=== PATIENT | male | born 1970 | race Caucasian/White ===

== ENCOUNTER → 2017-05-29 | Outpatient (CLI) | payer OTHER, BC ==
[2016-12-17 11:20] VITALS: BMI 27.2
[~2017-05-29] MED LIST: ACE3 PO; ACET-2043 PO; ALBU8.5H IH; ALBU8.5H12 IH; ALEN70TA2 PO; ALIVE MENS ENERGY; ASC500 PO; ASCO-191 PO; ASCO100T15 PO; ASPI81TA94 PO; CANA300T PO; CETI-176 PO; CETI10CA8 PO; CLIN300C99 PO; CLO1 PO; CLON-303 PO; CLON-389 PO; COL625PT PO; CYC10 PO; CYCL10TA29 PO; DIA10 PO; DIA5 PO; DIAZ-308 PO; DIPH-740 PO; DOCU-202 PO; EPIN0.3P15 IM; EPIN0.3P3 IM; EPIN0.3P3 SC; EZET10TA41 PO; FAMO-67 PO; FAMO20TA28 PO; FISH1CAP15 PO; FLUO-177 PO; FLUO-202 PO; GAB300 PO; GABA-549 PO; GEMF600T91 PO; GLY5 PO; HYDR-2946 PO; HYDR-2966 PO; HYDR-4309 PO; HYDROCHLORIDE PO; IBU200 PO; IBUP-1671 PO; ICAT30DI SQ; ICOS1CAP PO; INSU100I28 SQ; INSU100I5 SC; INSU100I8 SUBQ; KET10 PO; LAN30PT PO; LANS30CA70 PO; LEVI SUBQ; LID5T TP; LIDO20SO21 ASDIRECTED; LIS5 PO; LISI-362 PO; LOR5/325 PO; LORA-629 PO; LORA-788 PO; LORA-809 PO; METF-410 PO; MONT10TA PO; MORP-1 PO; MULT-1287 PO; NIAC500C12; NIAC500C12 PO; NIAC500T85 PO; NOVOLOG SUBQ; OMEG-24 PO; OMEG500C5 PO; OMEP-153 PO; ONDA4TAB PO; ONDA4TAB9 PO; ONDA4TAB97 PO; OXYC-375 PO; OXYC-854 PO; OXYC-856 PO; OXYC-865 PO; OXYC-870 PO; PANT20TA27 PO; PANT40TA65 PO; PER PO; PRE20 PO; PRED-1 PO; PRED20TA6 PO; PRED50TA22 PO; PULSE OXIMETER; Prednisone PO; RANI-325 PO; SIMV-42 PO; SIMV10TA98 PO; SUCR1TAB85 PO; WARF-1 PO; WARF-18 PO; WARF2.5T11 PO; [UNRECOGNIZED DRUG - OTHER]; [UNRECOGNIZED DRUG - OTHER]
--- NOTE | 2017-05-29 15:23 | RADIOLOGY IMAGING REPORT ---
FACILITY: [facility] - [place] PATIENT NAME: Payton La : 1970 MR: [id number] V: [id number] EXAM DATE: ORDERING PHYSICIAN: HITESH LYON TECHNOLOGIST: Location: [facility] [place] Patient: Payton La : 1970 Visit/Account:[id number] Date of Sevice: 05/29/2017 EXAMINATION: MRI Cervical spine without intravenous contrast HISTORY: Neck pain. Arm numbness. COMPARISON: 06/22/2015. TECHNIQUE: Multi-planar, multi-sequence cervical spine MRI was performed without intravenous contras t administration. FINDINGS: Alignment: Normal. Vertebral marrow signal: Negative. Cranio-cervical junction: Negative. Visualized posterior fossa: Negative. Soft tissues: Negative. Cervical cord: Negative. Disc Spaces: C1-2: Negative. C2-3: Negative. C3-4: Mild disc height loss with circumferential disc osteophyte. Complex. No significant spinal ca nal stenosis. Mild bilateral neural foraminal stenosis. Slightly worsened compared with 06/22/2015. C4-5: Anterior fusion. Left uncovertebral hypertrophy with mild left neural foraminal stenosis. No spinal canal or right neural foraminal stenosis. Anterior fusion is new and stenosis is decreased co mpared with 06/22/2015. C5-6: Anterior fusion. Bilateral uncovertebral hypertrophy with mild bilateral neural foraminal sten osis. No spinal canal stenosis. Anterior fusion is new and stenosis is decreased compared with . C6-7: Anterior fusion. Left greater than right uncovertebral hypertrophy with mild to moderate left neural foraminal stenosis. No spinal canal or right neural foraminal stenosis. The anterior C7 scre ws have been removed. Otherwise no significant change compared with 06/22/2015. C7-T1: Negative. Upper thoracic spine: Negative. IMPRESSION: 1. Anterior fusion of C4-C5, C5-C6, and C6-C7. 2. 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 3. Degenerative changes are slightly worsened at C3-C4 compared with 06/22/2015. 4. Anterior fusion is new and stenosis is decreased at C4-C5 and C5-C6 compared with 06/22/2015. Report Dictated By: Aroldo Stubbs MD at 05/29/2017 2:50 PM Report E-Signed By: Aroldo Stubbs MD at 05/29/2017 3:18 PM WSN:[id number]
== END ==
LOC: MRI 01:33
PROVIDERS: ATTEND Orthopaedic Surgery Orthopaedic Surgery of the Spine
DX: M50.31 Other cervical disc degeneration, high cervical region (principal); Z98.1 Arthrodesis status; M47.892 Other spondylosis, cervical region
CPT/HCPCS: 72141

== ENCOUNTER → 2017-07-21 | Outpatient (CLI) | payer BC, OTHER ==
[2016-12-17 11:20] VITALS: BMI 27.2
[~2017-07-21] MED LIST changes: -WARF-18 PO; +WARF5TAB23 PO
[2017-07-21 11:46] LABS: INR 1.12
== END ==
LOC: LAB 11:04
PROVIDERS: ATTEND Physician Assistant Surgical
DX: Z96.651 Presence of right artificial knee joint (principal)
CPT/HCPCS: 36415; 85610

== ENCOUNTER 2017-07-23 10:31 | Emergency (ER) | payer BC, OTHER ==
[2016-12-17 11:20] VITALS: Wt 80.5 kg
[2017-07-23] MEDS ORDERED: diphenhydrAMINE 50 MG/ML VIAL IVP ONE (10:40)
[2017-07-23] MEDS ORDERED: methylPREDNIS SUCC 125 MG/2ML IVP ONE (10:40)
[2017-07-23] MEDS ORDERED: FAMOTIDINE(*) 20MG/50ML PREMIX 50 ML IVPB ONE (10:40)
[2017-07-23] MEDS ORDERED: EPINEPHrine 0.3 MG SYR IM ONLY ONE (10:40)
--- NOTE | 2017-07-23 10:54 | ER Report ---
History and Physical Time Seen By MD: 10:52 Hx. of Stated Complaint: pt reports hives in hands and arms, around hips, worsening since last night HPI/ROS CHIEF COMPLAINT: Hives HISTORY OF PRESENT ILLNESS: Patient is a 46-year-old male with multiple known allergies and history of anaphylaxis presents to emergency department with complaint of some itching to his palms and sides. Patient recently had knee surgery on July 14 and was started on Coumadin by his orthopedist postoperatively. Patient notes that since beginning the Coumadin he's been having increasing any more itching. He denies any difficulty breathing, wheezing or throat tightening at this time. Denies fevers or chills. Denies any complication from the surgery itself. REVIEW OF SYSTEMS: Constitutional: No fever, no chills. Eyes: No discharge. ENT: No sore throat. Cardiovascular: No chest pain, no palpitations. Respiratory: No cough, no shortness of breath. Gastrointestinal: No abdominal pain, no vomiting. Genitourinary: No hematuria. Musculoskeletal: No back pain. Skin: Hives Neurological: No headache. Allergies: Coded Allergies: Iodinated Contrast- Oral and IV Dye (Verified Allergy, Severe, hives, sob , anaphalaxysis , 01/11/17) Penicillins (Verified Allergy, Severe, RASH, 01/11/17) cyclobenzaprine (Verified Allergy, Severe, HIVES, 01/11/17) metaxalone (Verified Allergy, Severe, HIVES,RASH, TROUBLE BREATHING, ) morphine (Verified Allergy, Severe, hives, rash, trouble breathing, ) tramadol (Verified Allergy, Intermediate, HIVES, 01/11/17) NSAIDS (Non-Steroidal Anti-Inflamma (Verified Allergy, Unknown, UNKNOWN, ) hx of anaphylaxis of unknown etiology. Has taken Ibuprofen without reaction. propoxyphene (Verified Adverse Reaction, Severe, NAUSEA/VOMITING., 01/11/17 ) hydromorphone (Verified Adverse Reaction, Mild, NAUSEA/VOMITING, 01/11/17) ketorolac tromethamine (Verified Adverse Reaction, Mild, NAUSEA/VOMITING, 01/11/17) meperidine (Verified Adverse Reaction, Mild, NAUSEA/VOMITING, 01/11/17) Uncoded Allergies: CONTRAST DYE (Allergy, Severe, ANAPHYLAXIS, 11/01/13) Home Meds Active Scripts Ondansetron (ONDANSETRON ODT) 4 Mg Tab.rapdis, 4 MG PO Q6H Y for NAUSEA, #20 TAB 2 Refills Prov:LASHAUN ERNST MD 12/20/16 Albuterol Sulfate 90 Mcg/Act (PROAIR HFA 90 MCG/ACT) 8.5 Gm Hfa.aer.ad, 2 PUFF IH Q6H, #2 INHALER 3 Refills Prov:BEBETO CASTILLO MD 10/07/16 Icatibant Acetate (FIRAZYR) 30 Mg/3 Ml Disp.syrin, 30 MG SQ Q6H Y for swelling, #0 Prov:FAROOQ GREENBERG MD 06/09/16 Acetaminophen (ACETAMINOPHEN) 500 Mg Tablet, 1000 MG PO Q8H Y for PAIN, #0 Prov:FAROOQ GREENBERG MD 06/09/16 Reported Medications Multivitamin (MEN'S MULTI-VITAMIN) 1 Each Tablet, 1 EACH PO DAILY 12/17/16 Ezetimibe (ZETIA) 10 Mg Tablet, 10 MG PO QHS, TAB 12/17/16 Colesevelam Hcl (WELCHOL) 625 Mg Tablet, 625 MG PO BID 10/07/16 Pantoprazole Sodium (PANTOPRAZOLE SODIUM) 40 Mg Tablet.dr, 40 MG PO BID, TAB.SR 06/08/16 Fluoxetine Hcl (PROZAC) 20 Mg Capsule, 20 MG PO QHS, CAPSULE 06/08/16 Ascorbic Acid (VITAMIN C) 1,000 Mg Tablet, 1000 MG PO BID 06/06/16 Cetirizine Hcl (ZYRTEC) 10 Mg Tablet, 10 MG PO BID, TAB 06/06/16 Insulin Degludec (Tresiba Flextouch U-100) Unknown Strength Insuln.pen, 12 UNITS SUBQ QHS 05/23/16 Gemfibrozil (GEMFIBROZIL) 600 Mg Tablet, 600 MG PO BID 05/23/16 Hydrochlorothiazide (HYDROCHLOROTHIAZIDE) 25 Mg Tablet, 1 TAB PO QDAY, TAB 05/23/16 Discontinued Reported Medications Sucralfate (CARAFATE) 1 Gm Tablet, 1 GM PO ACHS 12/17/16 Icosapent Ethyl (VASCEPA) 1 Gm Capsule, 2 GM PO BID, CAPSULE 06/06/16 Canagliflozin (INVOKANA) 300 Mg Tablet, 300 MG PO BEFORE BREAKAST 02/11/15 Past Medical/Surgical History History of anaphylactic reactions Hx Smoking: No Smoking Status: Never Smoker Exposure to Second Hand Smoke?: No Hx Substance Use Disorder: No Hx Alcohol Use: Yes Constitutional Vital Sign - Last 24 Hours 07/23/17 07/23/17 07/23/17 07/23/17 10:31 10:34 10:35 10:38 Temp 97.5 Pulse ??? 119 Resp 20 B/P (MAP) 145/115 (125) 145/115 143/117 (126) Pulse Ox 92 O2 Delivery Room Air 07/23/17 07/23/17 07/23/17 07/23/17 10:46 10:55 11:00 11:01 Pulse 118 97 B/P (MAP) 109/78 (88) 115/82 (93) Pulse Ox 94 90 07/23/17 07/23/17 07/23/17 07/23/17 11:16 11:30 11:31 11:35 Pulse 102 100 B/P (MAP) 125/75 (92) Pulse Ox 96 94 O2 Flow Rate 2.0 Intake and Output 07/23/17 07/23/17 07/24/17 15:00 23:00 07:00 Intake Total 2 ml Balance 2 ml Physical Exam General/Constitutional: Patient is awake, alert, nontoxic and in no acute respiratory distress. Head: Normocephalic and atraumatic. Eyes: Conjunctival clear, Ears:External canals are clear. Tympanic membranes are clear with normal landmarks and light reflex. Nares: No rhinorrhea or bleeding. Turbinates are pink and moist. Oropharyngeal: Mucous membranes are moist. There is no pharyngeal erythema or exudate. There are no palatal petechiae. Uvula is midline and symmetrical. Neck: Supple, no adenopathy. Cardiovascular: Heart is regular rate and rhythm without audible murmurs, rubs or gallops. Pulmonary: Lungs are clear to auscultation bilaterally. There are no wheezes, rales, or rhonchi. Chest rise is symmetrical Abdomen: Soft, nontender, no guarding or peritoneal signs. Extremities: No gross deformities, No peripheral cyanosis. Able to move all 4 extremities. Neuro: Alert and oriented X3, Skin: Hives to hands, hip area Medical Decision Making ED Course/Re-evaluation Clinical Indication for ER IV: IV Access ED Course Patient was observed in the emergency department did receive 0.3 mg of epinephrine intramuscularly along with 25 of IV Benadryl 40 mg oral Pepcid and 125 mg Solu-Medrol. Plan at this time will be to give a prophylactic dose of Lovenox subcutaneous patient is scheduled to follow-up with his orthopedist tomorrow and will be able to discuss alternatives to Coumadin Re-evaluation 07/23/2017 11:50:08 am patient dramatic improvement with interventions. Plan at this time will be discharge home. Patient has EpiPen at home and understands on proper use. Explained patient to continue Benadryl for the next 24 hours. Follow-up with his orthopedic surgeon tomorrow. Decision to Disposition Date: Jul 23, 2017 Decision to Disposition Time: 11:50 Depart Departure Latest Vital Signs Vital Signs Date Time Temp Pulse Resp B/P (MAP) Pulse Ox O2 Delivery O2 Flow Rate FiO2 07/23/17 11:35 2.0 07/23/17 11:31 100 94 07/23/17 11:30 125/75 (92) 07/23/17 10:35 97.5 20 Room Air Impression: Primary Impression: Allergic reaction caused by a drug Condition: Improved Disposition: HOME OR SELF-CARE Referrals: BEBETO CHAVES MD (PCP) Patient Instructions: General Allergic Reaction (ED) Additional Instructions: Discontinue use of her Coumadin. You were given an injection of Lovenox today to cover you until you can see your physician tomorrow to discuss alternatives to Coumadin Problem Qualifiers Primary Impression: Allergic reaction caused by a drug Encounter type: initial encounter Qualified Codes: T78.40XA - Allergy, unspecified, initial encounter JASON GONZALEZ MD Jul 23, 2017 10:54
[2017-07-23] MEDS ORDERED: ENOXAPARIN 40 MG/0.4ML SYR SC ONE (11:05)
[2017-07-23] MEDS ORDERED: FAMOTIDINE 20 MG TAB PO ONE (11:10)
[2017-07-23 11:51] VITALS: BP 129/85
== END 2017-07-23 12:06 | disposition home or self-care (01) ==
LOC: ER 10:52
DX: T78.40XA Allergy, unspecified, initial encounter (principal)
CPT/HCPCS: 96365; 96372; 96375; 99284; J0171; J1200; J1650; J2930; J3490

== ENCOUNTER → 2017-07-31 | Outpatient (CLI) | payer OTHER, BC ==
[2016-12-17 11:20] VITALS: BMI 27.2
--- NOTE | 2017-08-01 17:42 | RADIOLOGY IMAGING REPORT ---
FACILITY: [facility] PATIENT NAME: Payton La : 1970 MR: [id number] V: [id number] EXAM DATE: ORDERING PHYSICIAN: BEBETO CHAVES TECHNOLOGIST: Location: [facility] [place] Patient: Payton La : 1970 Visit/Account:[id number] Date of Sevice: 07/31/2017 Exam type: VENOUS DOPP LOW LEFT EXTREMITY History: Right leg swelling, recent right total knee revision Comparison: June 07, 2016. Findings: The right lower extremity veins were imaged including the right common femoral vein, greater saphenou s vein, superficial femoral vein, popliteal vein, posterior tibial vein, peroneal vein and anterior t ibial veins revealing no evidence of intraluminal thrombi. The veins were compressible and demonstra bridget augmentation. IMPRESSION: 1. No sonographic evidence DVT involving the right lower extremity veins Report Dictated By: Juana August MD at 08/01/2017 5:36 PM Report E-Signed By: Juana August MD at 08/01/2017 5:37 PM WSN:[id number]
== END ==
LOC: US 13:51
PROVIDERS: ATTEND Family Medicine
DX: M79.89 Other specified soft tissue disorders (principal)

== ENCOUNTER 2017-08-30 00:27 | Day surgery (SDC) | payer BC ==
[2016-12-17 11:20] VITALS: Ht 175.3 cm; Wt 89.8 kg
[~2017-08-30] VITALS: Ht 175.3 cm; Wt 89.8 kg
[~2017-08-30 00:27] MED LIST changes: +INSU100C14 SQ; +NOR25 PO
[2017-08-30 06:12] VITALS: BP 133/98
[2017-08-30] MEDS ORDERED: LIDOCAINE/SOD BICARB 8.4% SYR ID ONE (06:30)
[2017-08-30] MEDS ORDERED: NORMOSOL R SOLN(*) 1000 ML BAG 1,000 ML IV PRN (06:30)
[2017-08-30] MEDS ORDERED: PROPOFOL EMUL(*) 10MG/ML 20 ML 40 ML ONE (06:52)
[2017-08-30] MEDS ORDERED: NS(*) 0.9% 10 ML VIAL 10 ML ONE (07:26)
[2017-08-30 07:57] VITALS: BP 94/63
--- NOTE | 2017-08-30 08:03 | Short(Outpt) Discharge Summary ---
Discharge Summary Reason for Hosp/Final Diag: (1) GERD (gastroesophageal reflux disease) Status: Chronic Hospital Course & Plan: EGD with esophageal dilation and Botox injection into occipital scalp completed without problems. (2) Dysphagia Status: Chronic (3) Occipital headache Status: Chronic Departure Discharge to: Home, Self Care Discharge Instructions Home Meds Active Scripts Ondansetron (ONDANSETRON ODT) 4 Mg Tab.rapdis, 4 MG PO Q6H Y for NAUSEA, #20 TAB 2 Refills Prov:LASHAUN ERNST MD 12/20/16 Albuterol Sulfate 90 Mcg/Act (PROAIR HFA 90 MCG/ACT) 8.5 Gm Hfa.aer.ad, 2 PUFF IH Q6H, #2 INHALER 3 Refills Prov:BEBETO CASTILLO MD 10/07/16 Icatibant Acetate (FIRAZYR) 30 Mg/3 Ml Disp.syrin, 30 MG SQ Q6H Y for swelling, #0 Prov:FAROOQ GREENBERG MD 06/09/16 Acetaminophen (ACETAMINOPHEN) 500 Mg Tablet, 1000 MG PO Q8H Y for PAIN, #0 Prov:FAROOQ GREENBERG MD 06/09/16 Reported Medications Insulin Aspart (NOVOLOG) 100 Unit/1 Ml Cartridge, 1-5 UNIT SQ ACHS Sliding scale 08/09/17 Nortriptyline Hcl (NORTRIPTYLINE HCL) 25 Mg Cap, 25 MG PO HS, CAP 08/09/17 Multivitamin (MEN'S MULTI-VITAMIN) 1 Each Tablet, 1 EACH PO DAILY 12/17/16 Ezetimibe (ZETIA) 10 Mg Tablet, 10 MG PO QHS, TAB 12/17/16 Pantoprazole Sodium (PANTOPRAZOLE SODIUM) 40 Mg Tablet.dr, 40 MG PO BID, TAB.SR 06/08/16 Fluoxetine Hcl (PROZAC) 20 Mg Capsule, 20 MG PO QHS, CAPSULE 06/08/16 Ascorbic Acid (VITAMIN C) 1,000 Mg Tablet, 1000 MG PO BID 06/06/16 Cetirizine Hcl (ZYRTEC) 10 Mg Tablet, 10 MG PO BID, TAB 06/06/16 Insulin Degludec (Tresiba Flextouch U-100) Unknown Strength Insuln.pen, 12 UNITS SUBQ QHS 05/23/16 Gemfibrozil (GEMFIBROZIL) 600 Mg Tablet, 600 MG PO BID 05/23/16 Hydrochlorothiazide (HYDROCHLOROTHIAZIDE) 25 Mg Tablet, 1 TAB PO QDAY, TAB 05/23/16 Diet: Regular Activity: As Tolerated Special Instructions: Your EGD and dilation was completed without problems. I was able to see your vocal cords, esophagus, stomach, and duodenum and everything looks healthy. I was able to pass a 60 bulgarian dilater through your esophagus without problems so we'll see how this helps your symptoms. I also injected the back of your scalp where your scar is with botox so let me know when your symptoms are returning. You can follow up with me as needed. Problem Qualifiers (1) GERD (gastroesophageal reflux disease): Esophagitis presence: without esophagitis Qualified Codes: K21.9 - Gastro- esophageal reflux disease without esophagitis (2) Dysphagia: Dysphagia type: esophageal phase Qualified Codes: R13.10 - Dysphagia, unspecified BEBETO CASTILLO MD August 30, 2017 08:03
[2017-08-30 08:11] VITALS: BP 109/69
[2017-08-30 08:28] VITALS: BP 108/80
[2017-08-30 08:29] VITALS: BP 129/82
--- NOTE | 2017-08-30 11:21 | Procedure Note ---
Additional Procedures Comment 5units of botox injected into 3 sites in posterior scalp in area of previous surgical scar to treat occipital neuralgia from previous surgery. Total of 15 units injected. BEBETO CASTILLO MD August 30, 2017 11:21
== END 2017-08-30 08:39 | disposition home or self-care (01) ==
LOC: OR 00:27
PROVIDERS: ATTEND Surgery
DX: R10.13 Epigastric pain (principal); E11.9 Type 2 diabetes mellitus without complications
CPT/HCPCS: 36416; 43248; 82948; J2704

== ENCOUNTER 2018-03-07 22:51 | Inpatient (IN) | payer BC ==
[2016-12-17 11:20] VITALS: Ht 175.3 cm; Wt 95.3 kg
[~2018-03-07] VITALS: Ht 175.3 cm; Wt 95.3 kg
--- NOTE | 2018-03-07 22:47 | ER Report ---
History and Physical Time Seen By MD: 22:51 HPI/ROS CHIEF COMPLAINT: Respiratory distress HISTORY OF PRESENT ILLNESS: This is a 47-year-old male. He has a history of allergic reaction causing severe airway compromise needing to be intubated and having a trach in the past. EMS picked him up after a similar episode that started tonight. They gave him a couple of epinephrine nebulizers without relief. They called and let us know that they were coming in with the patient would need to be intubated with rapid sequence intubation upon arrival. On arrival the patient is very dyspneic and tachycardic. Having difficulty with his breathing. I have seen him in the past and knows his situation. Talked with him briefly indicating this looks like he was having similar episode and my thought was we probably needed to intubate him before he lost his airway. The patient nodded his agreement to this. He is unable to answer further questions at this time. EMS did hand me a box of the new injectable medication that he was prescribed called Huan, which I am unfamiliar with. REVIEW OF SYSTEMS: Unable to obtain at this time. Allergies: Coded Allergies: Iodinated Contrast- Oral and IV Dye (Verified Allergy, Severe, hives, sob, anaphalaxysis , 01/11/17) Penicillins (Verified Allergy, Severe, RASH, 01/11/17) cyclobenzaprine (Verified Allergy, Severe, HIVES, 01/11/17) metaxalone (Verified Allergy, Severe, HIVES,RASH, TROUBLE BREATHING, 01/11/17) morphine (Verified Allergy, Severe, hives, rash, trouble breathing, 01/11/17) tramadol (Verified Allergy, Intermediate, HIVES, 01/11/17) NSAIDS (Non-Steroidal Anti-Inflamma (Verified Allergy, Unknown, UNKNOWN, 01/11/17) hx of anaphylaxis of unknown etiology. Has taken Ibuprofen without reaction. propoxyphene (Verified Adverse Reaction, Severe, NAUSEA/VOMITING., 01/11/17) hydromorphone (Verified Adverse Reaction, Mild, NAUSEA/VOMITING, 01/11/17) ketorolac tromethamine (Verified Adverse Reaction, Mild, NAUSEA/VOMITING, 01/11/17) meperidine (Verified Adverse Reaction, Mild, NAUSEA/VOMITING, 01/11/17) diphenhydramine (Verified Adverse Reaction, Unknown, ITCHING, 08/09/17) warfarin (Verified Adverse Reaction, Unknown, ITCHING, 08/09/17) Rash Uncoded Allergies: CONTRAST DYE (Allergy, Severe, ANAPHYLAXIS, 11/01/13) Home Meds Active Scripts Ondansetron (ONDANSETRON ODT) 4 Mg Tab.rapdis, 4 MG PO Q6H PRN for NAUSEA, #20 TAB 2 Refills Prov:LASHAUN ALONZO MD 12/20/16 Albuterol Sulfate 90 Mcg/Act (PROAIR HFA 90 MCG/ACT) 8.5 Gm Hfa.aer.ad, 2 PUFF IH Q6H, #2 INHALER 3 Refills Prov:BEBETO CASTILLO MD 10/07/16 Icatibant Acetate (FIRAZYR) 30 Mg/3 Ml Disp.syrin, 30 MG SQ Q6H PRN for swelling, #0 Prov:FAROOQ GREENBERG MD 06/09/16 Acetaminophen (ACETAMINOPHEN) 500 Mg Tablet, 1000 MG PO Q8H PRN for PAIN, #0 Prov:FAROOQ GREENBERG MD 06/09/16 Reported Medications Insulin Aspart (NOVOLOG) 100 Unit/1 Ml Cartridge, 1-5 UNIT SQ ACHS Sliding scale 08/09/17 Nortriptyline Hcl (NORTRIPTYLINE HCL) 25 Mg Cap, 25 MG PO HS, CAP 08/09/17 Multivitamin (MEN'S MULTI-VITAMIN) 1 Each Tablet, 1 EACH PO DAILY 12/17/16 Ezetimibe (ZETIA) 10 Mg Tablet, 10 MG PO QHS, TAB 12/17/16 Pantoprazole Sodium (PANTOPRAZOLE SODIUM) 40 Mg Tablet.dr, 40 MG PO BID, TAB.SR 06/08/16 Fluoxetine Hcl (PROZAC) 20 Mg Capsule, 20 MG PO QHS, CAPSULE 06/08/16 Ascorbic Acid (VITAMIN C) 1,000 Mg Tablet, 1000 MG PO BID 06/06/16 Cetirizine Hcl (ZYRTEC) 10 Mg Tablet, 10 MG PO BID, TAB 06/06/16 Insulin Degludec (Tresiba Flextouch U-100) Unknown Strength Insuln.pen, 12 UNITS SUBQ QHS 05/23/16 Gemfibrozil (GEMFIBROZIL) 600 Mg Tablet, 600 MG PO BID 1/30/17 Hydrochlorothiazide (HYDROCHLOROTHIAZIDE) 25 Mg Tablet, 1 TAB PO QDAY, TAB 05/23/16 Reviewed Nurses Notes: Yes Hx Smoking: No Smoking Status: Never Smoker Exposure to Second Hand Smoke?: No Hx Substance Use Disorder: No Hx Alcohol Use: Yes Constitutional Vital Sign - Last 24 Hours 03/07/18 03/07/18 03/07/18 03/07/18 22:52 22:52 22:56 23:00 Temp 98.4 Pulse 90 133 Resp 26 17 B/P (MAP) 145/104 (118) 140/100 (113) Pulse Ox 90 99 O2 Delivery Non-Rebreather 03/07/18 03/07/18 03/07/18 03/07/18 23:01 23:05 23:06 23:10 Pulse 132 139 Resp 18 30 B/P (MAP) 238/166 (190) 174/118 (136) Pulse Ox 99 80 03/07/18 03/07/18 03/07/18 03/07/18 23:11 23:15 23:16 23:20 Pulse 110 119 Resp 16 0 B/P (MAP) 169/120 (136) 154/114 (127) Pulse Ox 88 92 03/07/18 03/07/18 03/07/18 03/07/18 23:21 23:21 23:21 23:21 Pulse 120 115 Resp 16 0 Pulse Ox 94 95 O2 Delivery Mechanical Ventilator FiO2 100.0 100.0 03/07/18 03/07/18 03/07/18 03/07/18 23:25 23:26 23:30 23:31 Pulse 113 111 Resp 10 16 B/P (MAP) 142/108 (119) 149/98 (115) Pulse Ox 95 95 03/07/18 03/07/18 03/07/18 03/07/18 23:35 23:36 23:40 23:41 Pulse 108 108 Resp 15 16 B/P (MAP) 139/104 (116) 145/103 (117) Pulse Ox 95 94 03/07/18 03/07/18 03/07/18 03/07/18 23:45 23:46 23:50 23:51 Pulse 104 108 Resp 16 17 B/P (MAP) 139/79 (99) 146/107 (120) Pulse Ox 95 95 03/07/18 03/07/18 03/08/1818 23:55 23:56 00:00 00:01 Pulse 107 108 Resp 14 B/P (MAP) 137/102 (114) 145/118 (127) Pulse Ox 95 03/08/18 03/08/18 03/08/18 03/08/18 00:05 00:06 00:10 00:15 Pulse 100 Resp 16 B/P (MAP) 138/105 (116) 139/103 (115) 129/106 (114) Pulse Ox 96 03/08/18 03/08/18 03/08/18 00:16 00:21 00:44 Pulse 100 100 Resp 14 19 Pulse Ox 95 94 FiO2 70.0 Physical Exam General Appearance: The patient is alert. Acute respiratory distress on non- rebreather, struggling, and unable to talk. Eyes: Pupils are equal, round. Reactive to light. No pallor, injection or icterus. ENT: Mucous membranes are moist. Some erythema and edema in the posterior oropharynx. Neck: Supple, no apparent tenderness. Respiratory: Respiratory distress. There is increased work of breathing with accessory muscle use. Patient is unable to talk to me. Cardiovascular: Tachycardic with a regular rhythm. No murmurs, gallops or rubs. Normal capillary refill and radial pulses. Gastrointestinal: Abdomen is soft. Nondistended. Neurological: Alert, distress and respiratory problem precludes further neuro exam. He is moving all extremities and I see no focal deficits of the cranial nerves on limited exam. Skin: Warm and dry. I do not see any definitive rashes but his skin is flushed and red. DIFFERENTIAL DIAGNOSIS: After history and physical exam, differential diagnosis was considered for acute respiratory distress. Medical Decision Making Data Points Result Diagram: 03/07/18 0005 03/07/18 0005 Laboratory Hematology Test 03/07/18 00:05 Red Blood Count 5.42 M/uL (4.00-5.60) Mean Corpuscular Volume 84.9 fL (80.0-96.0) Mean Corpuscular Hemoglobin 29.6 pg (26.0-33.0) Mean Corpuscular Hemoglobin Concent 34.9 g/dL (32.0-36.0) Red Cell Distribution Width 12.7 % (11.5-14.5) Mean Platelet Volume 8.3 fL (7.2-11.1) Neutrophils (%) (Auto) 56.2 % (39.4-72.5) Lymphocytes (%) (Auto) 32.1 % (17.6-49.6) Monocytes (%) (Auto) 9.1 % (4.1-12.4) Eosinophils (%) (Auto) 1.3 % (0.4-6.7) Basophils (%) (Auto) 1.3 % (0.3-1.4) Nucleated RBC Relative Count (auto) 0.0 /100WBC Neutrophils # (Auto) 4.7 K/uL (2.0-7.4) Lymphocytes # (Auto) 2.7 K/uL (1.3-3.6) Monocytes # (Auto) 0.8 K/uL (0.3-1.0) Eosinophils # (Auto) 0.1 K/uL (0.0-0.5) Basophils # (Auto) 0.1 K/uL (0.0-0.1) Nucleated RBC Absolute Count (auto) 0.00 K/uL Sodium Level 139 mmol/L (137-145) Potassium Level 3.8 mmol/L (3.5-5.0) Chloride Level 99 mmol/L (98-107) Carbon Dioxide Level 26 mmol/L (22-30) Blood Urea Nitrogen 15 mg/dl (9-21) Creatinine 0.70 mg/dl (0.66-1.25) Glomerular Filtration Rate Calc > 60.0 Random Glucose 269 mg/dl (75-110) Calcium Level 9.3 mg/dl (8.4-10.2) Total Bilirubin 0.6 mg/dl (0.2-1.3) Aspartate Amino Transf (AST/SGOT) 24 U/L (0-35) Alanine Aminotransferase (ALT/SGPT) 34 U/L (0-56) Alkaline Phosphatase 58 U/L (0-126) Troponin I < 0.012 ng/ml Total Protein 7.4 g/dl (6.3-8.2) Albumin 4.4 g/dl (3.5-5.0) Chemistry Test 03/07/18 00:05 White Blood Count 8.3 k/uL (4.5-11.0) Red Blood Count 5.42 M/uL (4.00-5.60) Hemoglobin 16.1 g/dL (14.0-18.0) Hematocrit 46.0 % (42.0-52.0) Mean Corpuscular Volume 84.9 fL (80.0-96.0) Mean Corpuscular Hemoglobin 29.6 pg (26.0-33.0) Mean Corpuscular Hemoglobin Concent 34.9 g/dL (32.0-36.0) Red Cell Distribution Width 12.7 % (11.5-14.5) Platelet Count 305 K/uL (150-450) Mean Platelet Volume 8.3 fL (7.2-11.1) Neutrophils (%) (Auto) 56.2 % (39.4-72.5) Lymphocytes (%) (Auto) 32.1 % (17.6-49.6) Monocytes (%) (Auto) 9.1 % (4.1-12.4) Eosinophils (%) (Auto) 1.3 % (0.4-6.7) Basophils (%) (Auto) 1.3 % (0.3-1.4) Nucleated RBC Relative Count (auto) 0.0 /100WBC Neutrophils # (Auto) 4.7 K/uL (2.0-7.4) Lymphocytes # (Auto) 2.7 K/uL (1.3-3.6) Monocytes # (Auto) 0.8 K/uL (0.3-1.0) Eosinophils # (Auto) 0.1 K/uL (0.0-0.5) Basophils # (Auto) 0.1 K/uL (0.0-0.1) Nucleated RBC Absolute Count (auto) 0.00 K/uL Glomerular Filtration Rate Calc > 60.0 Calcium Level 9.3 mg/dl (8.4-10.2) Total Bilirubin 0.6 mg/dl (0.2-1.3) Aspartate Amino Transf (AST/SGOT) 24 U/L (0-35) Alanine Aminotransferase (ALT/SGPT) 34 U/L (0-56) Alkaline Phosphatase 58 U/L (0-126) Troponin I < 0.012 ng/ml Total Protein 7.4 g/dl (6.3-8.2) Albumin 4.4 g/dl (3.5-5.0) EKG/Imaging EKG Interpretation 12 lead EKG: Rhythm: Sinus tachycardia, rate 108 [place]: normal QRS: normal ST segments: Nonspecific Imaging AP CHEST 03/07/2018 11:14 PM. INDICATION: s/p intubation COMPARISON: 12/17/2016. FINDINGS: Endotracheal tube terminates in the mid to lower thoracic trachea 2.4 cm above the carole. Lung expansion is low normal. Mild streaky opacification in the left mid and lower lung. No pleural effusion or pneumothorax. Heart size is normal. IMPRESSION: 1. Endotracheal tube appears appropriately positioned. 2. Mild streaky left lower lung opacification could represent scarring, atelectasis or potentially infection/aspiration. Follow-up as clinically in dicated. Report Dictated By: Demond Bar MD at 03/07/2018 11:57 PM COMPUTED TOMOGRAPHY CHEST WITHOUT INTRAVENOUS CONTRAST DATE OF EXAM: 03/07/2018 11:29 PM CLINICAL INDICATION: Respiratory distress. COMPARISON: Same-day radiograph and previous. TECHNIQUE: Noncontrast axial chest CT performed. Sagittal and coronal multiplanar reconstructions were performed. One of the following dose optimization techniques was utilized in the performance of this exam: Automated exposure control; adjustment of the mA and/or kV according to the patient's size; or use of an iterative reconstruction technique. Specific details can be referenced in the facility's radiology CT exam operational policy. FINDINGS: Thyroid: Normal. Thoracic inlet: No adenopathy. Heart and great vessels: Upper limit normal size heart. Prominent coronary artery calcifications. Aorta and pulmonary arteries are unremarkable. Mediastinum and paolo: No adenopathy. Lungs and pleura: Endotracheal tube appears appropriately positioned. Bilateral dependent atelectasis was scattered possible scarring. No suspicious consolidation, pleural effusion or pneumothorax. Breast and axilla: No adenopathy. Upper abdomen: No acute abnormality. Small hiatal hernia. Bones and soft tissues: No acute abnormality or suspicious lesion. Incompletely imaged cervical fusion hardware. IMPRESSION: 1. Intubated, with mild dependent atelectasis. No suspicious consolidation. 2. Prominent coronary artery calcifications. 3. Small hiatal hernia. Report Dictated By: Demond Bar MD at 03/08/2018 12:59 AM ED Course/Re-evaluation Clinical Indication for ER IV: Hydration, IV Access ED Course On initial evaluation, it is apparent he is in distress. Based on this evaluation, decision was made to intubate the patient to protect the airway be fore this worsened. An IV was established and the patient had rapid sequence intubation. Had some difficulty getting the ET tube through the cords, appeared to have some edema in the area of the cords. He received Solu-Medrol and Pepcid IV. He has allergy to Benadryl. I elected to not give the new medicine because I was not familiar with it and did not have time given my initial assessment. Chest x-ray showed some streaky changes in the base, but no demonstrable consolidation or acute process on non-contrast CT scan. I have him sedated with Rocuronium and Versed. Discussed the case with Dr. Alonzo who accepted him for admission to the ICU. I did have a chance to talk to his . She is very upset with me that we intubated him without giving him the injectable medicine which costs about $10,000. I told her that I can appreciate why she would be upset and apologized that we did not use the medicine, but explained that I was unfamiliar with that medication and did not have time to look it up. I was more concerned about him losing his airway given his history. Based on the look of edema near his vocal chords and the slight difficulty getting the ET tube through this area, I think that this was the correct decision and would make it again given a similar situation. I did let her know that we could look at the medicine further and try to make the ER providers aware of this medicine should this same situation happen again, but that a similar decision could be made if a provider is unfamiliar with the medicine or if they are worried about the airway being compromised and not wanting to wait to intubate until it is too late. Re-evaluation Procedure: Rapid sequence intubation. Indication for the procedure was respiratory distress/failure. The patient was preoxygenated with 100% oxygen by nonrebreather and then after sedation by bag valve mask. The patient was given the following IV medications: Etomidate, rocuronium and succinylcholine. I also had the patient given 100 mg of IV ketamine to help with sedation as well. The patient was orally endotracheally intubated using the Glidescope with a 7.5 ETT. Tracheal intubation was confirmed by direct visualization; with misting on the tube; breath sounds were auscultated equally bilaterally; appropriate color change with CO2 detector. I did have some problem getting the tube to go all the way through the cords, as her appeared to be slight edema of the cords and the tissue just beyond the vocal cords could be seen peeking around behind the cords. We were able to inflate the balloon partially and use a bag valve mask with the tube to help ventilate to bring sats up briefly before I was able to replace a stylette in the ET tube and then insert it past the cords. There was a slight popping sens ation as the tube finally advanced past the on the cords. The patient was placed on the capnography monitor. Chest X-ray shows ETT in good position. The procedure was performed by myself. Decision to Disposition Date: Mar 08, 2018 Decision to Disposition Time: 01:20 Critical Care Time I spent a total of 45 minutes of critical care time in obtaining history, performing a physical exam, bedside monitoring of interventions, collecting and interpreting tests and discussion with consultants but not including time spent performing procedures. Depart Departure Latest Vital Signs Vital Signs Date Time Temp Pulse Resp B/P (MAP) Pulse Ox O2 Delivery O2 Flow Rate FiO2 03/08/18 00:44 70.0 03/08/18 00:21 100 19 94 03/08/18 00:15 129/106 (114) 03/07/18 23:21 Mechanical Ventilator 03/07/18 22:52 98.4 Impression: Primary Impression: Acute respiratory failure Additional Impression: Acute allergic reaction Condition: Critical Disposition: Admitted from ER Referrals: BEBETO CHAVES MD (PCP) Problem Qualifiers Primary Impression: Acute respiratory failure Respiratory failure complication: unspecified whether with hypoxia or hypercapnia Qualified Codes: J96.00 - Acute respiratory failure, unspecified whether with hypoxia or hypercapnia Additional Impression: Acute allergic reaction Encounter type: initial encounter Qualified Codes: T78.40XA - Allergy, unspecified, initial encounter JR ALONSO MD Mar 07, 2018 22:47
[~2018-03-07 22:51] MED LIST changes: -NOR10 PO
[2018-03-07] MEDS ORDERED: NS(*) 0.9% 50 ML BAG 50 ML ONE (23:13)
[2018-03-07] MEDS ORDERED: MIDAZOLAM 10 MG/2 ML VIAL ONE (23:13)
[2018-03-07] MEDS ORDERED: KETAMINE HCL 200 MG/20 ML MDV IVP ONE (23:15)
[2018-03-07] MEDS ORDERED: ETOMIDATE 20 MG/10 ML VIAL IVP ONE (23:15)
[2018-03-07] MEDS ORDERED: SUCCINYLCHOL CHL 200MG/10ML VL IM ONE (23:15)
[2018-03-07] MEDS ORDERED: ROCURONIUM BROM 10 MG/ML 10 ML IVP ONE (23:15)
[2018-03-07] MEDS ORDERED: methylPREDNIS SUCC 125 MG/2ML IVP ONE (23:15)
[2018-03-07] MEDS ORDERED: FAMOTIDINE(*) 20MG/50ML PREMIX 50 ML IVPB ONE (23:15)
[2018-03-07] MEDS ORDERED: NS(*) 0.9% 500 ML BAG 500 ML ONE (23:29)
[2018-03-07] MEDS ORDERED: ROCURONIUM BROM 10 MG/ML 10 ML ONE (23:30)
[2018-03-07] MEDS: ROCURONIUM BR(*)10 MG/ML 10 ML 500 MG in NS(*) 0.9% 500 ML BAG 450 ML IVPB SCH (23:34)
--- NOTE | 2018-03-07 23:52 | EKG ---
FACILITY: [facility] PATIENT NAME: DANIELA NIEVES : [id number] MR: [id number] V: [id number] EXAM DATE: ORDERING PHYSICIAN: JR ALONSO TECHNOLOGIST: SAMSON Test Reason : RESP. DIST. Blood Pressure : / mmHG Vent. Rate : 108 BPM Atrial Rate : 108 BPM P-R Int : 180 ms QRS Dur : 090 ms QT Int : 362 ms P-R-T Axes : 049 046 000 degrees QTc Int : 485 ms Sinus tachycardia Nonspecific ST and T wave abnormality Abnormal ECG Confirmed by CRISTY ERNST ([id number]) on 03/08/2018 6:01:53 AM Referred By: Confirmed By:CRISTY ERNST
[2018-03-08] VITALS (77 sets, daily range): BP systolic 93–164; BP diastolic 58–112
--- NOTE | 2018-03-08 00:01 | RADIOLOGY IMAGING REPORT ---
FACILITY: [facility] PATIENT NAME: Payton La : 1970 MR: [id number] V: [id number] EXAM DATE: ORDERING PHYSICIAN: JR ALONSO TECHNOLOGIST: Location: [facility] Patient: Payton La : 1970 Visit/Account:[id number] Date of Sevice: 03/07/2018 AP CHEST 03/07/2018 11:14 PM. INDICATION: s/p intubation COMPARISON: 12/17/2016. FINDINGS: Endotracheal tube terminates in the mid to lower thoracic trachea 2.4 cm above the carole. Lung expansion is low normal. Mild streaky opacification in the left mid and lower lung. No pleural effusion or pneumothorax. Heart size is normal. IMPRESSION: 1. Endotracheal tube appears appropriately positioned. 2. Mild streaky left lower lung opacification could represent scarring, atelectasis or potentially i nfection/aspiration. Follow-up as clinically indicated. Report Dictated By: Demond Bar MD at 03/07/2018 11:57 PM Report E-Signed By: Demond Bar MD at 03/07/2018 11:58 PM WSN:[id number]
[2018-03-08 00:08] LABS: PLATELET COUNT, AUTOMATED 305 K/uL (150-450)
[2018-03-08] MEDS ORDERED: ROCURONIUM BR(*)10 MG/ML 10 ML 500 MG in NS(*) 0.9% 500 ML BAG 450 ML IVPB SCH ×2 (00:45→01:00)
[2018-03-08] MEDS ORDERED: MIDAZOLAM IV SCH (00:45)
[2018-03-08] MEDS ORDERED: NS 0.9% IV SCH (00:45)
[2018-03-08] MEDS ORDERED: NS(*) 0.9% 1000 ML BAG 1,000 ML IV PRN (01:00)
--- NOTE | 2018-03-08 01:11 | RADIOLOGY IMAGING REPORT ---
FACILITY: [facility] PATIENT NAME: Payton La : 1970 MR: [id number] V: [id number] EXAM DATE: ORDERING PHYSICIAN: JR ALONSO TECHNOLOGIST: Location: [facility] Patient: Payton La : 1970 Visit/Account:[id number] Date of Sevice: 03/07/2018 COMPUTED TOMOGRAPHY CHEST WITHOUT INTRAVENOUS CONTRAST DATE OF EXAM: 03/07/2018 11:29 PM CLINICAL INDICATION: Respiratory distress. COMPARISON: Same-day radiograph and previous. TECHNIQUE: Noncontrast axial chest CT performed. Sagittal and coronal multiplanar reconstructions we re performed. One of the following dose optimization techniques was utilized in the performance of t his exam: Automated exposure control; adjustment of the mA and/or kV according to the patient's size; or use of an iterative reconstruction technique. Specific details can be referenced in the [facility]'s radiology CT exam operational policy. FINDINGS: Thyroid: Normal. Thoracic inlet: No adenopathy. Heart and great vessels: Upper limit normal size heart. Prominent coronary artery calcifications. Aorta and pulmonary arteries are unremarkable. Mediastinum and paolo: No adenopathy. Lungs and pleura: Endotracheal tube appears appropriately positioned. Bilateral dependent atelectas is was scattered possible scarring. No suspicious consolidation, pleural effusion or pneumothorax. Breast and axilla: No adenopathy. Upper abdomen: No acute abnormality. Small hiatal hernia. Bones and soft tissues: No acute abnormality or suspicious lesion. Incompletely imaged cervical fus ion hardware. IMPRESSION: 1. Intubated, with mild dependent atelectasis. No suspicious consolidation. 2. Prominent coronary artery calcifications. 3. Small hiatal hernia. Report Dictated By: Demond Bar MD at 03/08/2018 12:59 AM Report E-Signed By: Demond Bar MD at 03/08/2018 1:08 AM WSN:[id number]
[2018-03-08] MEDS ORDERED: FLUSH 10 ML SYR IVP PRN (02:20)
[2018-03-08] MEDS: MIDAZOLAM IV SCH ×2 (02:21→06:21)
[2018-03-08] MEDS: NS 0.9% IV SCH ×2 (02:21→06:21)
[2018-03-08] MEDS ORDERED: INSULIN HUM LISPRO 100 UN/ML 3 ML VIAL SUBQ PRN (02:30)
--- NOTE | 2018-03-08 02:45 | History & Physical ---
History of Present Illness Chief Complaint Throat swelling History of Present Illness 47yo male with PMHx significant for recurrent idiopathic angioedema with multiple episodes requiring intubation and one emergent tracheostomy. Information is obtained from and Dr. Alonso (ER) as patient is currently intubated/sedated. Apparently, he had been doing very well without any recent problems. He was getting ready for bed this past evening when he began to feel as iff his throat/tongue were swelling. His stated his voice was somewhat hoarse, but she did not appreciate any lip/tongue swelling or hear any audible wheezing. They contacted the EMS and he was transported via ambulance to [facility]. It was reported he was syncopal/near syncopal in transport. It appeared he was near respiratory arrest in the ER and he was quickly intubated. He is currently sedated with Versed and paralyzed with rocuronium. History Problems: (1) Respiratory failure Status: Acute (2) Sleep apnea Status: Chronic (3) Esophageal dilatation Status: Chronic (4) Soft palate injury Status: Resolved (5) Epistaxis Status: Acute (6) Insomnia Status: Chronic (7) Angioedema Status: Chronic (8) Pericarditis Status: Chronic (9) Head trauma Status: Chronic (10) Laryngospasm Status: Resolved (11) ANXIETY DISORDER DUE TO KNOWN PHYSIOLOGICAL CONDITION Status: Chronic (12) History of gastroesophageal reflux (GERD) Status: Chronic (13) Gastric outlet obstruction Status: Chronic (14) Hiatal hernia Status: Chronic (15) Hyperlipemia Status: Chronic (16) Delayed gastric emptying Status: Chronic (17) Hypertrophic scar of skin Status: Chronic (18) Type 2 diabetes mellitus Status: Chronic (19) Hypertension Status: Chronic (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 (21) Cervical disc disease Status: Chronic (22) History of Jose R fundoplication Status: Chronic (23) History of brain surgery Status: Chronic (24) History of knee replacement Status: Chronic (25) History of cervical spinal arthrodesis Status: Chronic (26) History of appendectomy Status: Chronic Home Meds Active Scripts Ondansetron (ONDANSETRON ODT) 4 Mg Tab.rapdis, 4 MG PO Q6H PRN for NAUSEA, #20 TAB 2 Refills Prov:LASHAUN ERNST MD 12/20/16 Albuterol Sulfate 90 Mcg/Act (PROAIR HFA 90 MCG/ACT) 8.5 Gm Hfa.aer.ad, 2 PUFF IH Q6H, #2 INHALER 3 Refills Prov:BEBETO CASTILLO MD 10/07/16 Icatibant Acetate (FIRAZYR) 30 Mg/3 Ml Disp.syrin, 30 MG SQ Q6H PRN for swelling, #0 Prov:FAROOQ GREENBERG MD 06/09/16 Acetaminophen (ACETAMINOPHEN) 500 Mg Tablet, 1000 MG PO Q8H PRN for PAIN, #0 Prov:FAROOQ GREENBERG MD 06/09/16 Reported Medications Insulin Aspart (NOVOLOG) 100 Unit/1 Ml Cartridge, 1-5 UNIT SQ ACHS Sliding scale 08/09/17 Nortriptyline Hcl (NORTRIPTYLINE HCL) 25 Mg Cap, 25 MG PO HS, CAP 08/09/17 Multivitamin (MEN'S MULTI-VITAMIN) 1 Each Tablet, 1 EACH PO DAILY 12/17/16 Ezetimibe (ZETIA) 10 Mg Tablet, 10 MG PO QHS, TAB 12/17/16 Pantoprazole Sodium (PANTOPRAZOLE SODIUM) 40 Mg Tablet.dr, 40 MG PO BID, TAB.SR 06/08/16 Fluoxetine Hcl (PROZAC) 20 Mg Capsule, 20 MG PO QHS, CAPSULE 06/08/16 Ascorbic Acid (VITAMIN C) 1,000 Mg Tablet, 1000 MG PO BID 06/06/16 Cetirizine Hcl (ZYRTEC) 10 Mg Tablet, 10 MG PO BID, TAB 06/06/16 Insulin Degludec (Tresiba Flextouch U-100) Unknown Strength Insuln.pen, 12 UNITS SUBQ QHS 05/23/16 Gemfibrozil (GEMFIBROZIL) 600 Mg Tablet, 600 MG PO BID 05/23/16 Hydrochlorothiazide (HYDROCHLOROTHIAZIDE) 25 Mg Tablet, 1 TAB PO QDAY, TAB 05/23/16 Allergies: Coded Allergies: Iodinated Contrast- Oral and IV Dye (Verified Allergy, Severe, hives, sob, anaphalaxysis , 01/11/17) Penicillins (Verified Allergy, Severe, RASH, 01/11/17) cyclobenzaprine (Verified Allergy, Severe, HIVES, 01/11/17) metaxalone (Verified Allergy, Severe, HIVES,RASH, TROUBLE BREATHING, 01/11/17) morphine (Verified Allergy, Severe, hives, rash, trouble breathing, 01/11/17) tramadol (Verified Allergy, Intermediate, HIVES, 01/11/17) NSAIDS (Non-Steroidal Anti-Inflamma (Verified Allergy, Unknown, UNKNOWN, 01/11/17) hx of anaphylaxis of unknown etiology. Has taken Ibuprofen without reaction. propoxyphene (Verified Adverse Reaction, Severe, NAUSEA/VOMITING., 01/11/17) hydromorphone (Verified Adverse Reaction, Mild, NAUSEA/VOMITING, 01/11/17) ketorolac tromethamine (Verified Adverse Reaction, Mild, NAUSEA/VOMITING, 01/11/17) meperidine (Verified Adverse Reaction, Mild, NAUSEA/VOMITING, 01/11/17) diphenhydramine (Verified Adverse Reaction, Unknown, ITCHING, 08/09/17) warfarin (Verified Adverse Reaction, Unknown, ITCHING, 08/09/17) Rash Uncoded Allergies: CONTRAST DYE (Allergy, Severe, ANAPHYLAXIS, 11/01/13) Patient History: FH: HTN (hypertension) FATHER FH: MO (myocardial infarction) MOTHER FH: diabetes mellitus FATHER MOTHER BROTHER OR SISTER FH: heart disease FATHER FH: stroke MOTHER Hx Smoking: No Smoking Status: Never Smoker Exposure to Second Hand Smoke?: No Caffeine Intake: Coffee, Tea Caffeine/Cups Per Day: 2-3 CUPS PER DAY Hx Alcohol Use: Yes Hx Substance Use Disorder: No Social Drug Use: Never Review of Systems Constitutional: No Fever, No Chills Psychiatric: Anxiety Exam Vital Signs Vital Signs Date Time Temp Pulse Resp B/P (MAP) Pulse Ox O2 Delivery O2 Flow Rate FiO2 03/08/18 02:12 95 Mechanical Ventilator 40.0 03/08/18 02:12 109 16 03/08/18 00:15 129/106 (114) 03/07/18 22:52 98.4 General Appearance: Other (sedated on ventilator) Neuro: Other (currently paralyzed with IV rocuronium drip) Eyes: Other (no periorbital edema) ENT: Other (No edema noted of lips/tongue. ET tube in place. ) Neck: No Masses, Other (Healed scar at anterior bas eof neck) Cardiovascular: Regular Rate and Rhythm, No Edema, No JVD Respiratory: Clear to Auscultation GI: Other (Soft/rare BS) Extremities: Warm, Perfused Integumentary: Other (No rashes noted) Medical Decision Making Data Points Result Diagram: 03/07/18403/07/184 Item Value Date Time Albumin 4.4 g/dl 03/07/184 Total Protein 7.4 g/dl 03/07/184 Troponin I < 0.012 ng/ml 03/07/184 Alkaline Phosphatase 58 U/L 03/07/184 Alanine Aminotransferase (ALT/SGPT) 34 U/L 03/07/184 Aspartate Amino Transf (AST/SGOT) 24 U/L 03/07/184 Total Bilirubin 0.6 mg/dl 03/07/184 Calcium Level 9.3 mg/dl 03/07/184 EKG / Imaging EKG Interpretation Sinus tachycardia with nonspecific ST-T findings. Imaging PATIENT NAME: Payton La : 1970 MR: [id number] V: [id number] EXAM DATE: [id number] ORDERING PHYSICIAN: JR ALONSO TECHNOLOGIST: Location: [facility] - [place] Patient: Payton La : 1970 Visit/Account:[id number] Date of Sevice: 03/07/2018 COMPUTED TOMOGRAPHY CHEST WITHOUT INTRAVENOUS CONTRAST DATE OF EXAM: 03/07/2018 11:29 PM CLINICAL INDICATION: Respiratory distress. COMPARISON: Same-day radiograph and previous. TECHNIQUE: Noncontrast axial chest CT performed. Sagittal and coronal multiplanar reconstructions were performed. One of the following dose optimization techniques was utilized in the performance of this exam: Automated exposure control; adjustment of the mA and/or kV according to the patient's size; or use of an iterative reconstruction technique. Specific details can be referenced in the facility's radiology CT exam operational policy. FINDINGS: Thyroid: Normal. Thoracic inlet: No adenopathy. Heart and great vessels: Upper limit normal size heart. Prominent coronary artery calcifications. Aorta and pulmonary arteries are unremarkable. Mediastinum and paolo: No adenopathy. Lungs and pleura: Endotracheal tube appears appropriately positioned. Bilateral dependent atelectasis was scattered possible scarring. No suspicious consolidation, pleural effusion or pneumothorax. Breast and axilla: No adenopathy. Upper abdomen: No acute abnormality. Small hiatal hernia. Bones and soft tissues: No acute abnormality or suspicious lesion. Incompletely imaged cervical fusion hardware. IMPRESSION: 1. Intubated, with mild dependent atelectasis. No suspicious consolidation. 2. Prominent coronary artery calcifications. 3. Small hiatal hernia. Report Dictated By: Demond Bar MD at 03/08/2018 12:59 AM Report E-Signed By: Demond Bar MD at 03/08/2018 1:08 AM WSN:[id number] PATIENT NAME: Payton La : 1970 MR: [id number] V: [id number] EXAM DATE: ORDERING PHYSICIAN: JR ALONSO TECHNOLOGIST: Location: [facility] [place] Patient: Payton La : 1970 Visit/Account:[id number] Date of Sevice: 03/07/2018 AP CHEST 03/07/2018 11:14 PM. INDICATION: s/p intubation COMPARISON: 12/17/2016. FINDINGS: Endotracheal tube terminates in the mid to lower thoracic trachea 2.4 cm above the carole. Lung expansion is low normal. Mild streaky opacification in the left mid and lower lung. No pleural effusion or pneumothorax. Heart size is normal. IMPRESSION: 1. Endotracheal tube appears appropriately positioned. 2. Mild streaky left lower lung opacification could represent scarring, atelectasis or potentially infection/aspiration. Follow-up as clinically indicated. Report Dictated By: Demond Bar MD at 03/07/2018 11:57 PM Report E-Signed By: Demond Bar MD at 03/07/2018 11:58 PM WSN:[id number] Assessment and Plan Problems: (1) Respiratory failure Status: Acute Assessment & Plan: He appeared to have impending respiratory failure and was intubated in the ER. He has had several similar episodes in the past felt to be secondary to recurrent idiopathic angioedema. It has been over a year since his last episode. He has used Firazyr in the past with some success per his . Currently, he is doing well and does not appear to have any angioedema evident in face/lips/oropharynx. He is easy to ventilate. Will continue the IV steroids and H2 blockers. He has had possible adverse reaction to diphenhydramine recently, so will avoid for now. His does have a dose of the Firazyr, but it "out-dated" in 10/2016. Will continue the paralysis and sedation for next few hours, but will then stop the paralysis and see if he is still easy to ventilate. Hopefully, he could be extubated soon. (2) Angioedema Status: Chronic Assessment & Plan: Recurrent Idiopathic Angioedema. He appears to be doing well at this point. He has the Firazyr available, but as noted above it is "out- dated". Will continue with the steroids and H2 carlitos for now. Watch closely. (3) Type 2 diabetes mellitus Status: Chronic Assessment & Plan: Will watch glucoses and use SSI as needed. The steroids will almost certainly cause some hyperglycemia. Copies to: BEBETO CHAVES MD ; Venous Thromboembolism Antithrombotics Is Pt On Any Antithrombotics?: Yes Exam Sepsis Risk: No Definite Risk CRISTY ERNST MD Mar 08, 2018 02:45
[2018-03-08] MEDS ORDERED: NS(*) 0.9% 50 ML BAG 50 ML ONE (04:10)
[2018-03-08 05:20] LABS: PLATELET COUNT, AUTOMATED 284 K/uL (150-450)
[2018-03-08] MEDS ORDERED: MIDAZOLAM 50 MG/10 ML VIAL IV ONE (05:49)
[2018-03-08] MEDS: methylPREDNIS SUCC 125 MG/2ML IVP SCH ×3 (06:20→16:55)
[2018-03-08] MEDS: PROPOFOL(*)1000 MG/100 ML VIAL 100 ML IV PRN ×2 (08:01→20:02)
[2018-03-08] MEDS: PANTOPRAZOLE SOD 40 MG IV VIAL IVP SCH ×2 (08:31→21:41)
[2018-03-08] MEDS: ENOXAPARIN 40 MG/0.4ML SYR SC SCH (08:31)
[2018-03-08] MEDS: FAMOTIDINE(*) 20MG/50ML PREMIX 50 ML IVPB SCH ×2 (08:31→21:43)
[2018-03-08] MEDS ORDERED: PANTOPRAZOLE SOD 40 MG IV VIAL IVP SCH (09:00)
--- NOTE | 2018-03-08 09:56 | RADIOLOGY IMAGING REPORT ---
FACILITY: [facility] PATIENT NAME: Payton La : 1970 MR: [id number] V: [id number] EXAM DATE: ORDERING PHYSICIAN: CRISTY ERNST TECHNOLOGIST: Location: [facility] [place] Patient: Payton La : 1970 Visit/Account:[id number] Date of Sevice: 03/08/2018 CHEST SINGLE AP INDICATION: intubated COMPARISON: 03/07/2018 FINDINGS: Endotracheal tube is unchanged in position. Dobbhoff feeding tube has been placed with the catheter tip at the pylorus Heart size within normal limits. There is no focal infiltrate or lobar consolidation. Mild scarring is present at the left lung base There is no pneumothorax or pleural effusion. IMPRESSION: 1. Dobbhoff feeding tube placement with catheter tip at the pylorus. 2. No acute cardiopulmonary process Report Dictated By: Tobi Young at 03/08/2018 9:48 AM Report E-Signed By: Tobi Young at 03/08/2018 9:51 AM WSN:[id number]
[2018-03-08] MEDS: INSULIN HUM LISPRO 100 UN/ML 3 ML VIAL SUBQ PRN ×4 (10:21→21:42)
[2018-03-08] MEDS: CETIRIZINE HCL 10 MG TAB FT SCH ×2 (10:22→21:42)
[2018-03-08] MEDS: ORAL SUCTION/CHLORHX/SWAB KIT MT SCH ×2 (10:27→21:43)
[2018-03-08] MEDS: MIDAZOLAM 50 MG/10 ML VIAL 100 MG in NS(*) 0.9% 100 ML BAG 80 ML IV SCH (11:46)
[2018-03-08] MEDS ORDERED: COL625PT PO (12:07)
[2018-03-08] MEDS ORDERED: NOR10 PO (12:07)
[2018-03-08] MEDS ORDERED: ICOS1CAP PO (12:07)
--- NOTE | 2018-03-08 12:53 | EKG ---
FACILITY: [facility] PATIENT NAME: DANIELA NIEVES : [id number] MR: [id number] V: [id number] EXAM DATE: ORDERING PHYSICIAN: FAROOQ GREENBERG TECHNOLOGIST: VARGAS Test Reason : ELEV TROPONIN Blood Pressure : / mmHG Vent. Rate : 110 BPM Atrial Rate : 110 BPM P-R Int : 140 ms QRS Dur : 082 ms QT Int : 370 ms P-R-T Axes : 042 050 108 degrees QTc Int : 500 ms Sinus tachycardia T wave abnormality, consider lateral ischemia Abnormal ECG When compared with ECG of 07-MAR-2018 23:36, Nonspecific T wave abnormality no longer evident in Inferior leads T wave inversion now evident in Lateral leads Confirmed by FAROOQ GREENBERG ([id number]) on 03/08/2018 12:56:56 PM Referred By: YARI Confirmed By:FAROOQ GREENBERG
[2018-03-08] MEDS ORDERED: METOPROLOL TART 5 MG/5 ML VIAL IVP PRN (13:10)
--- NOTE | 2018-03-08 13:14 | Miscellaneous Provider Note ---
Miscellaneous Provider Note Note Item Value Date Time Troponin I 0.148 ng/ml *H 03/08/18 1154 Troponin I 0.052 ng/ml 03/08/18 05 Blood Gas Patient Temperature 37 DEGREES 03/08/18 050 Arterial Blood pH 7.36 03/08/18 050 Arterial Blood Partial Pressure CO2 42 mmHg H 03/08/18 0506 Arterial Blood Partial Pressure O2 61 mmHg 03/08/18 050 Arterial Blood HCO3 24 mmol/L 03/08/18 050 Arterial Blood Oxygen Saturation 90 % L 03/08/18 050 Arterial Blood Base Excess -2.0 mmol/L 03/08/18 0506 Sodium Level 137 mmol/L 03/08/18 0512 Potassium Level 4.8 mmol/L 03/08/18 05 Chloride Level 100 mmol/L 03/08/18 05 Carbon Dioxide Level 26 mmol/L 03/08/18 05 Blood Urea Nitrogen 15 mg/dl 03/08/18 05 Creatinine 0.60 mg/dl L 03/08/18 05 Whole Blood Glucose 286 mg/DL H 03/08/18 1019 Random Glucose 315 mg/dl H 03/08/18 0512 Total Bilirubin 0.4 mg/dl 03/08/18 0512 Aspartate Amino Transf (AST/SGOT) 25 U/L 03/08/18 05 Alanine Aminotransferase (ALT/SGPT) 31 U/L 03/08/18 0512 Alkaline Phosphatase 68 U/L 03/08/18 0512 White Blood Count 15.4 k/uL H 03/08/18 0512 Hemoglobin 16.3 g/dL 03/08/18 05 Platelet Count 284 K/uL 03/08/18 0512 Neutrophils (%) (Auto) 93.6 % H 03/08/18 05 Lymphocytes (%) (Auto) 4.5 % L 03/08/18 05 Monocytes (%) (Auto) 1.5 % L 03/08/18 05 ECG with new lateral T inversion. He has been left on the ventilator because of a previous history of reintubation after early extubation and that laryngeal edema was seen during the intubation. His troponin is elevated and has new lateral T inversion. Likely, it is related to demand from the stress of illness and intubation. BP stable. HR is in the 100's to 120's. Will get an echo, follow troponin, and use metoprolol prn to keep heart rate down. FAROOQ GREENBERG MD Mar 08, 2018 13:14
--- NOTE | 2018-03-08 13:28 | Medical Nutrition Therapy ---
Nutrition Anthropometrics Height (Inches): 69 Weight (Pounds): 210 Weight (Calculated Kilograms): 95.254 BMI: 31 Lopez Nutrition Score: Adequate Lopez Nutrition Risk Score: 22 Dietary Referral Nutrition Risk Factors: Mech. Ventilated Nutrition Risk Comment: Physical Findings Physical Appearance: Obese BMI 30-39 Skin Appearance Skin Appearance: Edema Edema Location Modifier: Edema Location: Type of Edema: Degree of Edema: Gastrointestinal Symptoms GI Symtoms: Tube Present: Bowel Sounds: Recent Bowel Pattern: Stool Characteristics: Nutritional Diagnosis Nutritional Risk Acuity 1: Pulm Fail Vent Nutritional Risk Acuity 3: Nausea Past Medical History: T2DM, sleep apnea, ideopathic anaphalaxis, GERD, HTN, hyperlipemia, pericarditis, head trauma, appendectomy, hx of brain surgery, cervical spinal arthrodesis, reyna fundoplication, knee replacement, tracheostomy Nutritional Acuity: 1-High Nutrition Diagnosis: Increased Nutrient Needs Nutrition Etiology: Physiological Causes Nutrition Problem/Etiology/Sym: Increased nutrient needs r/t physiological causes AEB mech ventilated, stress. Energy Requirement: 2100 (I-Masesy adjusted for obesity *1.2) Protein Requirement: 115 (1.2/kg) Fluid Requirement: 2100 (1ml/kg) Diet Type: NPO (Nothing by Mouth) Nutrition Intervention: Incr diet as tolerated, Obtain Height and Weight Nutrition Monitoring & Eval Nutrition Goals: Eat 75-100% Meal, Drink > 1500 cc/day RD Patient Assessment Time: [address] Assessment Type: RD Assessment Patient Nutrition Acuity: 1-High Follow Up Date: Mar 10, 2018 Nutritional Comment: 03/08 Pt admitted to ER for respiratory distress. Pt on [facility] ventilation. Hx of T2DM, sleep apnea, ideopathic anaphalaxis, GERD, HTN, hyperlipemia, pericarditis, head trauma, appendectomy, hx of brain surgery, cervical spinal arthrodesis, tracheostomy. Pt's BMI is Class 1 Obesity and calclulated from previous admission charted height. Pt WBC high at 15.4. Pt BG running high between 270-315. Alb WNL at 4.5. Pt receving 150 kcal through propofol. Will follow. NATALIA PELAEZ Mar 08, 2018 08:42
[2018-03-08] MEDS: NS(*) 0.9% 1000 ML BAG 1,000 ML IV PRN (13:55)
--- NOTE | 2018-03-08 15:22 | Procedure Note ---
Central Line Procedure Note Consent Signed: Yes Central Line Lumen: Triple Central Line Procedure: Chlorhexidine Prep Central Line Position: R Femoral Anesthesia Used: 1% Lidocaine CC's of Anesthesia: 3 Complications: None Central Line Post Position: Sutured, Confirmed Blood Return Comment The central line is needed for IV access and blood draws. US showed the vein and artery. Consent was signed by his . The patient was prepped and draped in a sterile fashion. US was used during placement. The vein was cannulated with one attempt. Dark, non-pulsatile blood was obtained. The triple lumen was placed using the Seldinger technique. FAROOQ GREENBERG MD Mar 08, 2018 15:22
[2018-03-08] MEDS ORDERED: FLUoxetine HCL 20 MG CAP FT SCH (21:00)
[2018-03-08] MEDS: INSULIN GLARGINE 100 U/ML 3 ML PEN SUBQ SCH (21:44)
[2018-03-09] VITALS (30 sets, daily range): BP systolic 93–138; BP diastolic 54–85
[2018-03-09] MEDS: methylPREDNIS SUCC 125 MG/2ML IVP SCH ×3 (00:30→16:46)
[2018-03-09] MEDS: NS(*) 0.9% 1000 ML BAG 1,000 ML IV PRN (00:31)
[2018-03-09] MEDS: ROCURONIUM BR(*)10 MG/ML 10 ML 500 MG in NS(*) 0.9% 500 ML BAG 450 ML IVPB SCH (01:20)
[2018-03-09] MEDS: PROPOFOL(*)1000 MG/100 ML VIAL 100 ML IV PRN (01:58)
[2018-03-09] MEDS: INSULIN HUM LISPRO 100 UN/ML 3 ML VIAL SUBQ PRN ×4 (01:59→21:23)
[2018-03-09] MEDS: MIDAZOLAM 50 MG/10 ML VIAL 100 MG in NS(*) 0.9% 100 ML BAG 80 ML IV SCH (01:59)
[2018-03-09 05:47] LABS: PLATELET COUNT, AUTOMATED 262 K/uL (150-450)
[2018-03-09] MEDS: CETIRIZINE HCL 10 MG TAB FT SCH (07:16)
[2018-03-09] MEDS: ORAL SUCTION/CHLORHX/SWAB KIT MT SCH (07:21)
--- NOTE | 2018-03-09 08:01 | RADIOLOGY IMAGING REPORT ---
FACILITY: [facility] - [place] PATIENT NAME: Payton La : 1970 MR: [id number] V: [id number] EXAM DATE: ORDERING PHYSICIAN: FAROOQ GREENBERG TECHNOLOGIST: Location: [facility] [place] Patient: Payton La : 1970 Visit/Account:[id number] Date of Sevice: 03/09/2018 CHEST SINGLE AP 0616 hours COMPARISON: March 08, 2018 HISTORY: respiratory failure FINDINGS: CARDIAC/VASC: No cardiac silhouette abnormality or cardiomegaly. Unremarkable pulmonary vasculatu re. MEDIASTINUM: No visible mass or adenopathy. LUNGS/PLEURA: Mild bibasilar atelectasis, left more than right, stable. No costophrenic angle blunti ng or new focal lung disease. No pneumothorax. BONES: No acute fractures are identified. Lower C-spine fusion plate. OTHER: Endotracheal tube tip 3 cm above the carole. Distal end of the feeding tube is not seen but th e tube is at least within the stomach. IMPRESSION: 1. Satisfactory position of support devices. 2. Mild bibasilar atelectasis. No significant change from 03/08/2018. Report Dictated By: Zachary Bell at 03/09/2018 7:55 AM Report E-Signed By: Zachary Bell at 03/09/2018 7:57 AM WSN:[id number]
[2018-03-09] MEDS ORDERED: LEVOFLOXACIN/D5W 750 MG/150 ML 150 ML IVPB SCH ×2 (08:10→10:00)
[2018-03-09] MEDS: FAMOTIDINE(*) 20MG/50ML PREMIX 50 ML IVPB SCH ×2 (08:35→21:21)
[2018-03-09] MEDS: ENOXAPARIN 40 MG/0.4ML SYR SC SCH (08:35)
[2018-03-09] MEDS: PANTOPRAZOLE SOD 40 MG IV VIAL IVP SCH ×2 (08:36→21:20)
[2018-03-09] MEDS: ACETAMINOPHEN(*)1000 MG/100 ML 100 ML IVPB PRN ×2 (11:35→21:23)
--- NOTE | 2018-03-09 11:49 | Hospitalist Progress Note ---
Subjective Progress Notes Subjective 47M admitted with idiopathic angioedema requiring intubation for airway protection. KAILEE overnight, leak test this am good, awake. Patient Complains of: Respiratory: Congestion Gastrointestinal: No Nausea, No Vomiting Physical Exam Vital Signs Date Time Temp Pulse Resp B/P (MAP) Pulse Ox O2 Delivery O2 Flow Rate FiO2 03/09/18 11:00 106 12 126/75 (92) 94 High-Flow Nasal Cannula 4.0 03/09/18 10:02 98.0 03/09/18 08:30 45.0 Intake and Output 03/09/18 07:00 Intake Total 3007.2 ml Output Total 2835 ml Balance 172.2 ml IV Total 2817.2 ml Tube Irrigant 190 ml Output Urine Total 2835 ml General Appearance: Alert, Awake, No Acute Distress Neuro: No Gross deficits Eyes: PERRLA ENT: Normal (intubated) Cardiovascular: Normal Rhythm & Peripheral Pulses Respiratory: No Respiratory Distress Chest: No Masses GI: Soft and Non-Tender Extremities: Soft and Non Tender, Warm, Pulses, Perfused; No Edema Result Diagram: 03/09/1852603/09/18526 Assessment and Plan Problems: (1) Respiratory failure Status: Acute Assessment & Plan: He appeared to have impending respiratory failure and was intubated in the ER. He has had several similar episodes in the past felt to be secondary to recurrent idiopathic angioedema. It has been over a year since his last episode. He has used Firazyr in the past with some success per his . Currently, he is doing well and does not appear to have any angioedema evident in face/lips/oropharynx. Will continue the IV steroids and H2 blockers. He has had possible adverse reaction to diphenhydramine recently, so will avoid for no w. Extubated after cuff leak passed. Suction from ET tube concerning for infection, had cough and secretions before admission. Began levofloxacin, await Cx. (2) Angioedema Status: Chronic Assessment & Plan: Recurrent Idiopathic Angioedema. He appears to be doing well at this point. He has the Firazyr available, but as noted above it is "out- dated". Will continue with the steroids and H2 carlitos for now. Watch closely. (3) Type 2 diabetes mellitus Status: Chronic Assessment & Plan: Will watch glucoses and use SSI as needed. The steroids will almost certainly cause some hyperglycemia. Exam Sepsis Risk: Sepsis Risk PARISI STILL,DEBBIE DO Mar 09, 2018 11:49
[2018-03-09] MEDS ORDERED: NS(*) 0.9% 1000 ML BAG 1,000 ML IV PRN (13:47)
[2018-03-09] MEDS ORDERED: FLUoxetine HCL 20 MG CAP PO SCH (21:00)
[2018-03-09] MEDS: INSULIN GLARGINE 100 U/ML 3 ML PEN SUBQ SCH (21:21)
[2018-03-09] MEDS: CETIRIZINE HCL 10 MG TAB PO SCH (21:22)
[2018-03-10] MEDS: methylPREDNIS SUCC 125 MG/2ML IVP SCH ×2 (00:20→08:20)
[2018-03-10 03:14] VITALS: BP 132/77
[2018-03-10 06:00] LABS: PLATELET COUNT, AUTOMATED 242 K/uL (150-450)
[2018-03-10 08:09] VITALS: BP 132/80
[2018-03-10] MEDS: ENOXAPARIN 40 MG/0.4ML SYR SC SCH (08:19)
[2018-03-10] MEDS: CETIRIZINE HCL 10 MG TAB PO SCH (08:20)
[2018-03-10] MEDS: FAMOTIDINE(*) 20MG/50ML PREMIX 50 ML IVPB SCH (08:20)
[2018-03-10] MEDS: PANTOPRAZOLE SOD 40 MG IV VIAL IVP SCH (08:20)
[2018-03-10] MEDS: INSULIN HUM LISPRO 100 UN/ML 3 ML VIAL SUBQ PRN ×2 (08:32→12:14)
--- NOTE | 2018-03-10 10:47 | Medical Nutrition Therapy ---
Nutrition Anthropometrics Height (Inches): 69 Weight (Pounds): 210 Weight (Calculated Kilograms): 95.254 BMI: 31 Lopez Nutrition Score: Probably Inadequate Lopez Nutrition Risk Score: 15 Dietary Referral Nutrition Risk Factors: Mech. Ventilated Nutrition Risk Comment: Physical Findings Physical Appearance: Obese BMI 30-39 Skin Appearance Skin Appearance: Edema Edema Location Modifier: Edema Location: Type of Edema: Degree of Edema: Gastrointestinal Symptoms GI Symtoms: Tube Present: Bowel Sounds: Recent Bowel Pattern: Stool Characteristics: Nutritional Diagnosis Nutritional Risk Acuity 2: Blood Glucose > 300mg/dl Nutritional Risk Acuity 3: Nausea Past Medical History: T2DM, sleep apnea, ideopathic anaphalaxis, GERD, HTN, hyperlipemia, pericarditis, head trauma, appendectomy, hx of brain surgery, cervical spinal arthrodesis, reyna fundoplication, knee replacement, tracheostomy Nutritional Acuity: 2-Moderate Nutrition Diagnosis: Increased Nutrient Needs Nutrition Etiology: Physiological Causes Nutrition Problem/Etiology/Sym: Increased nutrient needs r/t physiological causes [facility]. Energy Requirement: 2100 (I-Massey adjusted for obesity *1.2) Protein Requirement: 115 (1.2/kg) Fluid Requirement: 2100 (1ml/kg) Diet Type: Medical Liquid/GI soft Nutrition Intervention: Incr diet as tolerated Nutrition Monitoring & Eval Nutrition Goals: Eat 75-100% Meal, Drink > 2 liters/day RD Patient Assessment Time: [address] Assessment Type: RD Re-Assessment Patient Nutrition Acuity: 2-Moderate Follow Up Date: Mar 13, 2018 Nutritional Comment: 03/08 Pt admitted to ER for respiratory distress. Pt on [facility] ventilation. Hx of T2DM, sleep apnea, ideopathic anaphalaxis, GERD, HTN, hyperlipemia, pericarditis, head trauma, appendectomy, hx of brain surgery, cervical spinal arthrodesis, tracheostomy. Pt's BMI is Class 1 Obesity and calclulated from previous admission charted height. Pt WBC high at 15.4. Pt BG running high between 270-315. Alb WNL at 4.5. Pt receving 150 kcal through propofol. Will follow. TB 03/10 Pt extubated. Diet advanced to med liquid/GI soft. Pt is eating 100% asking for additional foods. Recommend change to ADA diet. BG declined but cont elevated in 200's. Will cont to monitor and encourage intake. ANISHA CARD Mar 10, 2018 10:47
[2018-03-10 11:54] VITALS: BP 145/95
[2018-03-10] MEDS ORDERED: PRED20TA6 PO (12:03)
--- NOTE | 2018-03-10 12:17 | Hospitalist Depart ---
Discharge Summary Reason for Hosp/Final Diag: (1) Respiratory failure Status: Acute Hospital Course & Plan: He appeared to have impending respiratory failure and was intubated in the ER. He has had several similar episodes in the past felt to be secondary to recurrent idiopathic angioedema. It has been over a year since his last episode. He has used Firazyr in the past with some success per his . Unfortunately, the dose of Firazyr they brought was outdated. We did place him on IV steroids, H2 carlitos, and he had also taken Zyrtec. He did do very well and did not appear to have any recurrent angioedema evident in face/lips/oropharynx. He has had possible adverse reaction to diphenhydramine recently and it was not used. He was extubated and did very well. He will be discharged with a short course of weaning steroids. He will continue the Zyrtec as well. We discussed the use of the Firazyr also. At this time, they will plan on using the Firazyr at home and contacting EMS immediately if he has a recurrent episode of angioedema. They will provide the EMS with a copy of the Firazyr description/adverse reactions/drug interactions. (2) Angioedema Status: Chronic Hospital Course & Plan: Recurrent Idiopathic Angioedema. He appears to be doing well at this point. He has the Firazyr available and will use as noted above. Will do a short weaning course steroids. He will follow up with Dr. Chaves and his clothing designer.. (3) Type 2 diabetes mellitus Status: Chronic Hospital Course & Plan: He will continue his usual Tresiba. The steroids will almost certainly cause some hyperglycemia. Departure Weight (Pounds): 210 Weight (Ounces): 8.0 Result Diagram: 03/10/1853703/10/18537 Item Value Date Time White Blood Count 15.4 k/uL H 03/08/18511 White Blood Count 8.3 k/uL 03/07/18 0005 Hemoglobin 16.1 g/dL 03/07/18 0005 Hematocrit 46.0 % 03/07/18 0005 Hemoglobin 16.3 g/dL 03/08/18511 Hematocrit 48.2 % 03/08/18511 Platelet Count 305 K/uL 03/07/18 0005 Platelet Count 284 K/uL 03/08/18511 Sodium Level 139 mmol/L 03/07/184 Potassium Level 3.8 mmol/L 03/07/184 Chloride Level 99 mmol/L 03/07/184 Carbon Dioxide Level 26 mmol/L 03/07/184 Blood Urea Nitrogen 15 mg/dl 03/07/184 Creatinine 0.70 mg/dl 03/07/184 Glomerular Filtration Rate Calc > 60.0 03/07/184 Random Glucose 269 mg/dl H 03/07/184 Calcium Level 9.3 mg/dl 03/07/184 Total Bilirubin 0.6 mg/dl 03/07/184 Aspartate Amino Transf (AST/SGOT) 24 U/L 03/07/184 Alanine Aminotransferase (ALT/SGPT) 34 U/L 03/07/184 Alkaline Phosphatase 58 U/L 03/07/184 Troponin I < 0.012 ng/ml 03/07/184 Total Protein 7.4 g/dl 03/07/184 Albumin 4.4 g/dl 03/07/184 [facility] *LIVE* [address] [place] [address] ELLIE GRANDA M.D., DIRECTOR OF LABORATORY SERVICES DEBBIE CHAVIRA M.D., PATHOLOGIST RUN DATE: 03/10/18 Specimen Inquiry Report PAGE 1 RUN TIME: 0752 PATIENT: PAYTON NIEVES ACCT: [id number] LOC: MED U: [id number] AGE/SX: 47/M ROOM: 2276 RE03/08/[address]: CRISTY ERNST MD : 1970 BED: 276 DIS: STATUS: ADM IN TLOC: --------- --- SPEC #: [id number] KAROLINE: 03/08/18 STATUS: TRINIDAD CORLEY #: [id number] RECD: 03/08/[address] [facility] [address]: FAROOQ GREENBERG MD SOURCE: SPUTUM SCT ENTR: 03/08/18 [facility] DR: CRISTY ERNST MD SPDESC: BEBETO CHAVES MD ORDERED: CULT SPUTUM/GS COMMENTS: Has specimen been collected/obtained? Y Procedure Result Verified ------- ----- GRAM STAIN Final 03/08/18 3+ GRAM POSITIVE COCCI 3+ WHITE BLOOD CELLS 2+ GRAM NEGATIVE RODS SPUTUM CULTURE Final 03/10/18 NORMAL RESPIRATORY MELANIA PRESENT. NO PATHOGENS ISOLATED Imaging PATIENT NAME: Payton Nieves : 1970 MR: [id number] V: [id number] EXAM DATE: [id number] ORDERING PHYSICIAN: JR ALONSO TECHNOLOGIST: Location: [facility] Patient: Payton Nieves : 1970 Visit/Account:[id number] Date of Sevice: 03/07/2018 COMPUTED TOMOGRAPHY CHEST WITHOUT INTRAVENOUS CONTRAST DATE OF EXAM: 03/07/2018 11:29 PM CLINICAL INDICATION: Respiratory distress. COMPARISON: Same-day radiograph and previous. TECHNIQUE: Noncontrast axial chest CT performed. Sagittal and coronal multiplanar reconstructions were performed. One of the following dose optimization techniques was utilized in the performance of this exam: Automated exposure control; adjustment of the mA and/or kV according to the patient's size; or use of an iterative reconstruction technique. Specific details can be referenced in the facility's radiology CT exam operational policy. FINDINGS: Thyroid: Normal. Thoracic inlet: No adenopathy. Heart and great vessels: Upper limit normal size heart. Prominent coronary artery calcifications. Aorta and pulmonary arteries are unremarkable. Mediastinum and paolo: No adenopathy. Lungs and pleura: Endotracheal tube appears appropriately positioned. Bilateral dependent atelectasis was scattered possible scarring. No suspicious consolidation, pleural effusion or pneumothorax. Breast and axilla: No adenopathy. Upper abdomen: No acute abnormality. Small hiatal hernia. Bones and soft tissues: No acute abnormality or suspicious lesion. Incompletely imaged cervical fusion hardware. IMPRESSION: 1. Intubated, with mild dependent atelectasis. No suspicious consolidation. 2. Prominent coronary artery calcifications. 3. Small hiatal hernia. Report Dictated By: Demond Bar MD at 03/08/2018 12:59 AM Report E-Signed By: Demond Bar MD at 03/08/2018 1:08 AM WSN:[id number] Condition: Improved Discharge: Home, Self Care Follow-Up Labs: Finger Sticks (glucoses 3-4 times daily) Time Spent: > 30 min Discharge Instructions Home Meds Active Scripts Prednisone (PREDNISONE) 20 Mg Tablet, 40 MG PO QDAY for 4 Days, #6 TAB 0 Refills Two tabs a day for two days, then one tab a day for two days, then off Prov:CRISTY ERNST MD 03/10/18 Ondansetron (ONDANSETRON ODT) 4 Mg Tab.rapdis, 4 MG PO Q6H PRN for NAUSEA, #20 TAB 2 Refills Prov:LASHAUN ERNST MD 12/20/16 Albuterol Sulfate 90 Mcg/Act (PROAIR HFA 90 MCG/ACT) 8.5 Gm Hfa.aer.ad, 2 PUFF IH Q6H, #2 INHALER 3 Refills Prov:BEBETO CASTILLO MD 10/07/16 Icatibant Acetate (FIRAZYR) 30 Mg/3 Ml Disp.syrin, 30 MG SQ Q6H PRN for swelling, #0 Prov:FAROOQ GREENBERG MD 06/09/16 Acetaminophen (ACETAMINOPHEN) 500 Mg Tablet, 1000 MG PO Q8H PRN for PAIN, #0 Prov:FAROOQ GREENBERG MD 06/09/16 Reported Medications Icosapent Ethyl (VASCEPA) 1 Gm Capsule, 2 GM PO BID, #2 CAPSULE 03/08/18 Nortriptyline Hcl (NORTRIPTYLINE HCL) 10 Mg Cap, 10 MG PO HS, CAP 03/08/18 Insulin Aspart (NOVOLOG) 100 Unit/1 Ml Cartridge, 1-5 UNIT SQ ACHS Sliding scale 08/09/17 Multivitamin (MEN'S MULTI-VITAMIN) 1 Each Tablet, 1 EACH PO DAILY 12/17/16 Ezetimibe (ZETIA) 10 Mg Tablet, 10 MG PO QHS, TAB 12/17/16 Pantoprazole Sodium (PANTOPRAZOLE SODIUM) 40 Mg Tablet.dr, 40 MG PO BID, TAB.SR 06/08/16 Fluoxetine Hcl (PROZAC) 20 Mg Capsule, 20 MG PO QHS, CAPSULE 06/08/16 Ascorbic Acid (VITAMIN C) 1,000 Mg Tablet, 1000 MG PO BID 06/06/16 Cetirizine Hcl (ZYRTEC) 10 Mg Tablet, 10 MG PO BID, TAB 06/06/16 Insulin Degludec (Tresiba Flextouch U-100) Unknown Strength Insuln.pen, 38 UNITS SUBQ QHS 05/23/16 Gemfibrozil (GEMFIBROZIL) 600 Mg Tablet, 600 MG PO BID 05/23/16 Hydrochlorothiazide (HYDROCHLOROTHIAZIDE) 25 Mg Tablet, 1 TAB PO QDAY, TAB 05/23/16 Discontinued Reported Medications Colesevelam Hcl (WELCHOL) 625 Mg Tablet, 625 MG PO BID 03/08/18 Nortriptyline Hcl (NORTRIPTYLINE HCL) 25 Mg Cap, 25 MG PO HS, CAP 08/09/17 Follow up Referrals: Family Practice @ [facility] with BEBETO CHAVES MD Diet: Diabetic Activity: As Tolerated, No Exertion Special Instructions: Follow up with Dr. Chaves in next 1-2 weeks or sooner if any problems. Follow up with Head Of Training And Development as needed. Follow up with Dr. Castillo as needed. Copies to: BEBETO CHAVES MD; BEBETO CASTILLO MD ; Venous Thromboembolism Antithrombotics Is Pt On Any Antithrombotics?: Yes CRISTY ERNST MD Mar 10, 2018 12:17
== END 2018-03-10 12:45 | disposition home or self-care (01) | DRG 208 ==
LOC: ER 22:58 → ICU 03-08 01:28 → MED 03-09 16:00
PROVIDERS: ADMIT Internal Medicine; ATTEND Internal Medicine
PROC: 5A1945Z Respiratory Ventilation, 24-96 Consecutive Hours (ICD-10-PCS; principal; 2018-03-07)
PROC: 0BH17EZ Insertion of Endotracheal Airway into Trachea, Via Natural or Artificial Opening (ICD-10-PCS; 2018-03-07)
PROC: 06HM33Z Insertion of Infusion Device into Right Femoral Vein, Percutaneous Approach (ICD-10-PCS; 2018-03-08)
PROC: B54BZZA Ultrasonography of Right Lower Extremity Veins, Guidance (ICD-10-PCS; 2018-03-08)
DX: J96.00 Acute respiratory failure, unspecified whether with hypoxia or hypercapnia (principal); I31.9 Disease of pericardium, unspecified; T78.3XXA Angioneurotic edema, initial encounter; F06.4 Anxiety disorder due to known physiological condition; E11.9 Type 2 diabetes mellitus without complications; I10 Essential (primary) hypertension; R04.0 Epistaxis; G47.00 Insomnia, unspecified; K21.9 Gastro-esophageal reflux disease without esophagitis; G47.30 Sleep apnea, unspecified; R13.10 Dysphagia, unspecified; K44.9 Diaphragmatic hernia without obstruction or gangrene; E78.5 Hyperlipidemia, unspecified; Z88.0 Allergy status to penicillin; Z81.1 Family history of alcohol abuse and dependence; Z88.5 Allergy status to narcotic agent; Z88.8 Allergy status to other drugs, medicaments and biological substances; Z88.6 Allergy status to analgesic agent; Z79.4 Long term (current) use of insulin
CPT/HCPCS: 36415; 36416; 36569; 36600; 71045; 71250; 82040; 82247; 82310; 82374; 82435; 82565; 82803; 82947; 82948; 84075; 84132; 84155; 84295; 84450; 84460; 84484; 84520; 85025; 87070; 87205; 93005; 93306; 94002; 94003; 96361; 96365; 96366; 96372; 96375; 99291; C1758; C9113; J0131; J0330; J1650; J1815; J1956; J2250; J2704; J2930; J3490; J7030; J7050

== ENCOUNTER → 2018-03-07 | Outpatient (CLI) | payer BC ==
[2016-12-17 11:20] VITALS: BMI 27.2
[~2018-03-07] MED LIST changes: -CLON-303 PO; +CLON-333 PO; -GEMF600T91 PO; +GEMF600T92 PO; -HYDR-4309 PO; +HYDR-653 PO; -METF-410 PO; +METF-450 PO; +NOR10 PO; -OXYC-375 PO; +OXYC1TAB78 PO
== END ==
LOC: AMB 22:27
PROVIDERS: ATTEND Nurse Practitioner
DX: T78.2XXA Anaphylactic shock, unspecified, initial encounter (principal); E11.9 Type 2 diabetes mellitus without complications
CPT/HCPCS: A0425; A0427

== ENCOUNTER → 2018-03-27 | Outpatient (CLI) | payer BC ==
[2016-12-17 11:20] VITALS: BMI 27.2
[~2018-03-27] MED LIST changes: +NOR10 PO; +REGADENOSON 0.4 MG/5 ML SYR ONE
--- NOTE | 2018-03-27 11:54 | RADIOLOGY IMAGING REPORT ---
FACILITY: [facility] [place] PATIENT NAME: Payton La : 1970 MR: [id number] V: [id number] EXAM DATE: ORDERING PHYSICIAN: BEBETO CHAVES TECHNOLOGIST: Location: [facility] [place] Patient: Payton La : 1970 Visit/Account:[id number] Date of Sevice: 03/27/2018 EXAMINATION: Single isotope SPECT imaging with regadenoson infusion and gated SPECT imaging. DATE OF EXAMINATION: 03/27/18. DATE OF INTERPRETATION: 03/27/18. REQUESTING PHYSICIAN: BEBETO CHAVES. INDICATION: The patient is a 47-year-old M evaluated for chest pain. PROCEDURE: After informed consent the patient received an intravenous injection of 12.2 mCi of Tc-99 m sestamibi followed at an appropriate time interval by rest imaging. The patient then subsequently received an intravenous infusion of 0.4 mg of regadenoson per protocol without complication. Resting heart rate was 88 bpm with a peak heart rate of 120 bpm. Blood pressure at rest was 116 / 82 and fo llowing infusion was 116 / 82. Baseline EKG demonstrates sinus rhythm with inferior Q waves. There were no EKG changes of ischemia following infusion. Symptoms were nonspecific. The patient then rec eived an intravenous injection of 31.0 mCi of Tc-99m sestamibi followed by stress imaging. RAW DATA: Examination of the summed raw data revealed a good quality study. MYOCARDIAL PERFUSION: The tomographic images demonstrate normal myocardial perfusion with no evidenc e of infarct or ischemia. TID is positive at 1.47. GATED IMAGES: The gated images demonstrate normal ejection fraction 59% with normal wall motion and thickening. IMPRESSION: 1. Nondiagnostic Lexiscan stress ECG 2. Normal myocardial perfusion scan. TID is positive at 1.47 but this is nonspecific in the setting of normal perfusion. 3. Normal LV systolic function; LVEF 59%. 4. Based on the results of this exam, the patient appears to be at low risk for future cardiovascular events. Report Dictated By: Alex Goyal at 03/27/2018 11:47 AM Report E-Signed By: Alex Goyal at 03/27/2018 11:50 AM WSN:[id number]
--- NOTE | 2018-03-27 16:41 | RT STRESS TEST REPORT ---
FACILITY: [facility] [place] PATIENT NAME: DANIELA NIEVES : [id number] MR: [id number] V: [id number] EXAM DATE: ORDERING PHYSICIAN: BEBETO CHAVES TECHNOLOGIST: John Acquisition Time: 2018-03-27 09:35:06 Total Exercise Time: 00:01:00 Test Indications: Chest Discomfort Medications: SEE NUCLEAR MED SHEET Protocol: LEXISCAN Max HR: 120 BPM 68% of Pred: 174 BPM Max BP: 116/082 mmHG Max Work Load: 1.0 METS Baseline EKG showed Q waves in the inferior leads Imp No EKG changes to suggest ischemia Nuclear medicine report to follow Confirmed by SALENA KABA ([id number]) on 03/27/2018 4:41:57 PM Referred By: Overread By: SALENA KABA
== END ==
LOC: RESP 01:59
PROVIDERS: ATTEND Family Medicine
DX: R07.9 Chest pain, unspecified (principal)
CPT/HCPCS: 78452; 93017; A9500; J2785

== ENCOUNTER 2018-04-26 00:56 | Observation (INO) | payer BC ==
[~2018-04-26] VITALS: Ht 175.3 cm; Wt 89.6 kg
[2018-04-26] VITALS (14 sets, daily range): BP systolic 115–144; BP diastolic 83–103
[~2018-04-26 00:56] MED LIST changes: -ALEN70TA2 PO; +ALEN70TA46 PO; -GEMF600T92 PO; +GEMF600T96 PO; -REGADENOSON 0.4 MG/5 ML SYR ONE
[2018-04-26] MEDS ORDERED: ROPIVACAINE 0.5% 20 ML VIAL ONE (07:37)
[2018-04-26] MEDS ORDERED: PROPOFOL EMUL(*) 10MG/ML 20 ML 20 ML ONE (08:09)
[2018-04-26] MEDS ORDERED: ONDANSETRON 4 MG/2 ML VIAL ONE (08:09)
[2018-04-26] MEDS ORDERED: ROCURONIUM BROM 10 MG/ML 10 ML ONE (08:09)
[2018-04-26] MEDS ORDERED: LIDOCAINE MPF 1% 5 ML VIAL ONE (08:09)
[2018-04-26] MEDS ORDERED: DEXAMETHASONE SOD 4 MG/ML VIAL ONE (08:09)
[2018-04-26] MEDS ORDERED: fentaNYL CITR 100 MCG/2 ML AMP ONE ×3 (08:23→12:52)
[2018-04-26] MEDS ORDERED: FAMOTIDINE 20 MG TAB PO ONE (09:45)
[2018-04-26] MEDS ORDERED: SUGAMMADEX SOD 200 MG/2 ML SDV ONE (11:01)
[2018-04-26] MEDS ORDERED: NORMOSOL R SOLN(*) 1000 ML BAG 1,000 ML IV ONE (13:06)
[2018-04-26] MEDS ORDERED: NS(*) 0.9% 1000 ML BAG 1,000 ML IV PRN (13:07)
[2018-04-26] MEDS ORDERED: ONDANSETRON 4 MG/2 ML VIAL IVP PRN (13:10)
[2018-04-26] MEDS ORDERED: NALOXONE HCL 0.4 MG/ML VIAL IVP PRN (13:10)
[2018-04-26] MEDS ORDERED: FLUSH 10 ML SYR IVP PRN (13:10)
[2018-04-26] MEDS ORDERED: ONDANSETRON 4 MG ODT TABDP SL PRN (13:10)
[2018-04-26] MEDS ORDERED: [UNRECOGNIZED DRUG - OTHER] SC PRN (13:10)
--- NOTE | 2018-04-26 13:27 | Post Operative Progress Note ---
Post Operative Progress Note Date: Apr 26, 2018 Time: 13:18 Surgeon: Hanna Dictation number: [id number] Anesthesia: GETA by Dr. 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
[2018-04-26] MEDS ORDERED: HYDROmorphone HCL 2 MG/ML SDV ONE (13:56)
--- NOTE | 2018-04-26 14:13 | OPERATIVE REPORT 1 ---
EVENT DATE: April 26, 2018 SURGEON: Johnnie Ferreira M.D. ANESTHESIOLOGIST: Juan Ayers MD ANESTHESIA: General endotracheal. 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 Dysphagia. 2. 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 POSTOPERATIVE DIAGNOSES 1. Dysphagia. 2. 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 PROCEDURE PERFORMED 1. Esophagogastroduodenoscopy with wire-guided 60-[place]izen [place] bougie dilation of entire esophagus. 2. Tracheostomy. COMPLICATIONS None. CONDITION Stable. ESTIMATED BLOOD LOSS Minimal. INDICATIONS This is a 47-year-old gentleman who over the last 5 or 6 years has had multiple episodes of idiopathic anaphylactic response with laryngeal edema requiring emergent intubation. He has been seen by [facility] Officer, carlita Stewart in [place] and no specific cause has been able to be identified that leads to his recurring anaphylaxis. He did have a tracheostomy a couple of years ago but after he went about 8 or 9 months without any episodes and because of the significant discomfort he experienced with the tracheostomy, we removed it and allowed the tracheostomy hole to close. He now typically has 1 or 2 episodes a year and had one recently, requiring intubation and a couple of nights in the Intensive Care Unit. He is requesting tracheostomy because he is very fearful that if he is out in the aceves, which he often is, alone and he develops laryngeal edema that he will not be able to get to help rapidly and would like the tracheostomy so that he can continue to breathe while he seeks medical attention. He also has chronic recurring dysphagia and is on pantoprazole 40 mg twice a day but has had good response to esophageal dilation in the past and is requesting to have esophageal dilation once again. DESCRIPTION OF PROCEDURE The patient was brought into the operating room and placed supine on the operating table. General endotracheal anesthesia was administered and a bite block was placed in his mouth and the endoscope was tested to ensure it was completely functional and then lubricated and inserted into his esophagus and advanced all the way through to the third portion of the duodenum and slowly withdrawn as we looked at all the mucosal surfaces. All the tissues examined including the bulb, second part of the duodenum, third part of the duodenum, stomach and esophagus all looked unremarkable. I then threaded a wire through the scope into the stomach and removed the scope and then threaded the 60[place] dilator over the wire and passed it into the stomach without any problems. I then removed the dilator wire and inserted the scope once again and passed it all the way into the stomach and looked for any injuries or other problems related to the dilation and there was none. I then withdrew the scope and he was placed in a position with a cushion underneath his shoulders and his neck was extended and his neck was prepped and draped in sterile fashion. A time-out was completed and I marked his skin so that I would remove the previous scar from his previous tracheostomy through an elliptical incision and then anesthetized the skin with 0.5% ropivacaine plain. We then grabbed the #8 fenestrated cuffed tracheostomy tube and tested the balloon to make sure it was functional and then inserted the obturator and lubricated this and then once everything was set up and we were ready to go, I made the incision in his neck and dissected through the dermis and subcutaneous fat, platysmas muscle and then vertically between the strap muscles. Because of his previous tracheostomy, the normal tissue planes were not very evident but ultimately I was able to get down to the anterior surface of the trachea. This did not have a typical appearance of the trachea with clear rings due to the previous tracheostomy and all of the scarring. Ultimately, I did make a transverse incision between two tracheal rings with a scalpel and I visualized the endotracheal tube in the lumen of the trachea and had the anesthesiologist pull the endotracheal tube back without completely extubating the patient and I made the hole big enough and attempted several times to get the 8 cuffed tube in but I could not get it to set in the trachea. We then pulled up a 6 cuffed fenestrated tracheostomy tube and tested the balloon with the obturator in and lubricated. I was able to insert it without any problems into the trachea. I then put the non- fenestrated inner cannula in it and hooked him up to the ventilation circuit and he was able to ventilate without any problems with good tidal CO2 and his SiO2, which had declined into the high 80's while switching from the 8 o the 6 tracheostomy tube, slowly came back up into the high 90's after the #6 tube was placed in the trachea. I then closed the transverse incision with interrupted 3- 0 Prolene sutures and used the same sutures to secure the flange of the tracheostomy tube to his skin in four points. There was initially some oozing of blood, which I continued to watch for a while before sewing the flange to the skin and this went away. We then placed a drain dressing around the tracheostomy tube and this was taped into place. He was then slowly woken up and Dr. Ayers had previously removed the endotracheal tube but as he woke up I disconnected him from the circuit and swapped out the inner cannula to the fenestrated inner cannula and then put a Passy-Kobe valve on this and he was able to phonate and also cough up bloody secretions from the procedure. He was then brought over to the recovery room in stable condition and tolerated the procedure without any apparent problems. KIERAN
[2018-04-26] MEDS ORDERED: MIDAZOLAM 2 MG/2 ML VIAL IVP PRN (14:35)
[2018-04-26] MEDS ORDERED: LEVOFLOXACIN/D5W*500 MG/100 ML 100 ML IVPB ONE (14:35)
[2018-04-26] MEDS ORDERED: LIDOCAINE/SOD BICARB 8.4% SYR ID ONE (14:35)
[2018-04-26] MEDS ORDERED: NORMOSOL R SOLN(*) 1000 ML BAG 1,000 ML IV PRN (14:35)
[2018-04-26] MEDS: fentaNYL CITR 100 MCG/2 ML AMP IVP PRN ×2 (17:14→18:35)
[2018-04-26] MEDS: ALBUTEROL 8 GM INHALER INH SCH (17:54)
[2018-04-26] MEDS: ASCORBIC ACID 500 MG TAB PO SCH (21:00)
[2018-04-26] MEDS ORDERED: ICOSAPENT ETHYL 2 GM PO SCH (21:00)
[2018-04-26] MEDS: DOCUSATE SODIUM 100 MG CAP PO SCH (21:00)
[2018-04-26] MEDS: GEMFIBROZIL 600 MG TAB PO SCH (21:00)
[2018-04-26] MEDS: EZETIMIBE 10 MG TAB PO SCH (21:32)
[2018-04-26] MEDS: PANTOPRAZOLE SOD 40 MG TABEC PO SCH (21:32)
[2018-04-26] MEDS: NORTRIPTYLINE HCL 10 MG CAP PO SCH (21:32)
[2018-04-26] MEDS: CETIRIZINE HCL 10 MG TAB PO SCH (21:32)
[2018-04-26] MEDS: FLUoxetine HCL 20 MG CAP PO SCH (21:32)
[2018-04-27] MEDS: ALBUTEROL 8 GM INHALER INH SCH ×5 (05:45→22:36)
[2018-04-27 07:33] VITALS: BP 110/72
--- NOTE | 2018-04-27 08:21 | General Surgery Progress Note ---
Subjective Progress Notes Subjective Feeling better this morning. No SOB. Pain controlled. Physical Exam Vital Signs Date Time Temp Pulse Resp B/P (MAP) Pulse Ox O2 Delivery O2 Flow Rate FiO2 04/27/18 07:33 98.7 87 12 110/72 (85) 93 Nasal Cannula 2.0 Intake and Output0 04/27/18 07:00 Intake Total 2742 ml Output Total 5 ml Balance 2737 ml Intake Oral 442 ml IV Total 2300 ml Output Estimated Blood Loss 5 ml # Voids 2 General Appearance: Alert, Awake, No Acute Distress, Afebrile Neck: Other (Trach site looks good. No bleeding.) GI: Soft and Non-Tender Extremities: Warm, Perfused Assessment and Plan Problems: (1) Anaphylaxis Status: Acute Assessment & Plan: 04/27/18: POD#1 s/p tracheostomy and EGD with dilation. Feeling better this morning. Will set him up with appropriate trach care supplies for home and if this can all be arranged then possible d/c to home this afternoon. (2) Dysphagia Status: Chronic Condition Stable. Time Spent: < 30 min Exam Sepsis Risk: No Definite Risk Problem Qualifiers (1) Anaphylaxis: Encounter type: subsequent encounter Qualified Codes: T78.2XXD - Anaphylactic shock, unspecified, subsequent encounter (2) Dysphagia: Dysphagia type: esophageal phase Qualified Codes: R13.10 - Dysphagia, unspecified BEBETO CASTILLO MD Apr 27, 2018 08:21
[2018-04-27] MEDS ORDERED: MULTIVITAMIN PO SCH (09:00)
[2018-04-27] MEDS: ASCORBIC ACID 500 MG TAB PO SCH ×2 (09:03→20:48)
[2018-04-27] MEDS: DOCUSATE SODIUM 100 MG CAP PO SCH ×2 (09:03→20:48)
[2018-04-27] MEDS: CETIRIZINE HCL 10 MG TAB PO SCH ×2 (09:03→20:48)
[2018-04-27] MEDS: PANTOPRAZOLE SOD 40 MG TABEC PO SCH ×2 (09:03→20:48)
[2018-04-27] MEDS: HYDROCHLOROTHIAZIDE 25 MG TAB PO SCH (09:04)
[2018-04-27] MEDS: GEMFIBROZIL 600 MG TAB PO SCH ×2 (09:04→20:48)
[2018-04-27] MEDS: INSULIN HUM LISPRO 100 UN/ML 3 ML VIAL SUBQ PRN ×3 (12:01→20:47)
[2018-04-27 15:09] VITALS: BP 123/82
[2018-04-27 15:16] VITALS: Ht 175.3 cm; Wt 89.6 kg
[2018-04-27 18:56] VITALS: BP 119/75
[2018-04-27] MEDS: EZETIMIBE 10 MG TAB PO SCH (20:48)
[2018-04-27] MEDS: NORTRIPTYLINE HCL 10 MG CAP PO SCH (20:48)
[2018-04-27] MEDS: FLUoxetine HCL 20 MG CAP PO SCH (20:48)
[2018-04-27 22:23] VITALS: BP 126/85
[2018-04-28 03:57] VITALS: BP 112/73
[2018-04-28] MEDS: ALBUTEROL 8 GM INHALER INH SCH ×4 (06:24→23:25)
[2018-04-28 08:11] VITALS: BP 122/83
--- NOTE | 2018-04-28 08:33 | General Surgery Progress Note ---
Subjective Progress Notes Subjective No new complaints this morning. Had some coughing overnight, some drainage around trach tube. Feels like he's breathing and speaking without problems. Physical Exam Vital Signs Date Time Temp Pulse Resp B/P (MAP) Pulse Ox O2 Delivery O2 Flow Rate FiO2 04/28/18 08:11 97.8 84 16 122/83 (96) 91 Nasal Cannula 2.0 Intake and Output 04/28/18 07:00 Intake Total 720 ml Balance 720 ml Intake Oral 720 ml # Voids 6 General Appearance: Alert, Awake, No Acute Distress, Afebrile Neck: Other (Trach site with small amount of drainage on dressing, o/w looks good, no erythema.) Cardiovascular: Regular Rate and Rhythm Respiratory: Clear to Auscultation Extremities: Warm, Perfused Assessment and Plan Problems: (1) Anaphylaxis Status: Acute Assessment & Plan: 04/27/18: POD#1 s/p tracheostomy and EGD with dilation. Feeling better this morning. Will set him up with appropriate trach care supplies for home and if this can all be arranged then possible d/c to home this afternoon. 04/28/18: POD#2. Doing well. Awaiting for trach tube suction pump to be delivered to home, likely Monday. He has everything else for home trach care. Will d/c home after suction pump delivered, hopefully Monday. (2) Dysphagia Status: Chronic Condition Stable. Time Spent: < 30 min Exam Sepsis Risk: No Definite Risk Problem Qualifiers (1) Anaphylaxis: Encounter type: subsequent encounter Qualified Codes: T78.2XXD - Anaphylactic shock, unspecified, subsequent encounter (2) Dysphagia: Dysphagia type: esophageal phase Qualified Codes: R13.10 - Dysphagia, unspecified BEBETO CASTILLO MD Apr 28, 2018 08:33
[2018-04-28] MEDS: DOCUSATE SODIUM 100 MG CAP PO SCH ×2 (08:52→20:46)
[2018-04-28] MEDS: PANTOPRAZOLE SOD 40 MG TABEC PO SCH ×2 (08:52→20:47)
[2018-04-28] MEDS: ASCORBIC ACID 500 MG TAB PO SCH ×2 (08:52→20:48)
[2018-04-28] MEDS: CETIRIZINE HCL 10 MG TAB PO SCH ×2 (08:52→20:47)
[2018-04-28] MEDS: GEMFIBROZIL 600 MG TAB PO SCH ×2 (08:52→20:50)
[2018-04-28] MEDS: HYDROCHLOROTHIAZIDE 25 MG TAB PO SCH (08:52)
[2018-04-28 11:37] VITALS: BP 131/90
[2018-04-28 14:56] VITALS: BP 123/89
[2018-04-28 19:10] VITALS: BP 123/80
[2018-04-28] MEDS: FLUoxetine HCL 20 MG CAP PO SCH (20:47)
[2018-04-28] MEDS: EZETIMIBE 10 MG TAB PO SCH (20:47)
[2018-04-28] MEDS: INSULIN HUM LISPRO 100 UN/ML 3 ML VIAL SUBQ PRN (20:51)
[2018-04-28] MEDS: NORTRIPTYLINE HCL 10 MG CAP PO SCH (20:52)
[2018-04-29 00:38] VITALS: BP 123/86
[2018-04-29 04:43] VITALS: BP 120/71
[2018-04-29] MEDS: ALBUTEROL 8 GM INHALER INH SCH ×3 (05:56→17:00)
[2018-04-29] MEDS ORDERED: HYDROGEN PEROXID 3% 473 ML BTL TP ONE (07:12)
[2018-04-29] MEDS: DOCUSATE SODIUM 100 MG CAP PO SCH ×2 (09:16→21:44)
[2018-04-29] MEDS: GEMFIBROZIL 600 MG TAB PO SCH ×2 (09:17→21:43)
[2018-04-29] MEDS: PANTOPRAZOLE SOD 40 MG TABEC PO SCH ×2 (09:18→21:44)
[2018-04-29] MEDS: ASCORBIC ACID 500 MG TAB PO SCH ×2 (09:19→21:42)
[2018-04-29] MEDS: HYDROCHLOROTHIAZIDE 25 MG TAB PO SCH (09:19)
[2018-04-29] MEDS: CETIRIZINE HCL 10 MG TAB PO SCH ×2 (09:19→21:42)
[2018-04-29 09:24] VITALS: BP 123/86
--- NOTE | 2018-04-29 09:39 | General Surgery Progress Note ---
Subjective Progress Notes Subjective No new complaints. Swallowing improved. Physical Exam Vital Signs Date Time Temp Pulse Resp B/P (MAP) Pulse Ox O2 Delivery O2 Flow Rate FiO2 04/29/18 09:24 98.8 91 16 123/86 (98) 93 6.0 30.0 04/29/18 05:57 Nasal Cannula Intake and Output 04/29/18 07:00 Intake Total 680 ml Balance 680 ml Intake Oral 680 ml # Voids 1 ENT: Normal, Other (Trach in place, capped, phonating well) Cardiovascular: Normal Rhythm & Peripheral Pulses Respiratory: No Respiratory Distress Assessment and Plan Problems: (1) Anaphylaxis Status: Acute Assessment & Plan: 04/27/18: POD#1 s/p tracheostomy and EGD with dilation. Feeling better this morning. Will set him up with appropriate trach care supplies for home and if this can all be arranged then possible d/c to home this afternoon. 04/28/18: POD#2. Doing well. Awaiting for trach tube suction pump to be delivered to home, likely Monday. He has everything else for home trach care. Will d/c home after suction pump delivered, hopefully Monday. 04/29/18: POD #3. No new events, still awaiting suction pump - expect Monday. Continue ambulation. (2) Dysphagia Status: Chronic Exam Sepsis Risk: No Definite Risk Problem Qualifiers (1) Anaphylaxis: Encounter type: subsequent encounter Qualified Codes: T78.2XXD - Anaphylactic shock, unspecified, subsequent encounter (2) Dysphagia: Dysphagia type: esophageal phase Qualified Codes: R13.10 - Dysphagia, unspecified DINO APONTE MD Apr 29, 2018 09:39
[2018-04-29 11:53] VITALS: BP 124/84
[2018-04-29] MEDS: INSULIN HUM LISPRO 100 UN/ML 3 ML VIAL SUBQ PRN ×3 (11:59→21:46)
[2018-04-29 15:24] VITALS: BP 134/94
[2018-04-29 19:51] VITALS: BP 129/88
[2018-04-29] MEDS: NORTRIPTYLINE HCL 10 MG CAP PO SCH (21:43)
[2018-04-29] MEDS: EZETIMIBE 10 MG TAB PO SCH (21:44)
[2018-04-29] MEDS: FLUoxetine HCL 20 MG CAP PO SCH (21:44)
[2018-04-30] MEDS: ALBUTEROL 8 GM INHALER INH SCH ×5 (01:10→19:41)
[2018-04-30 01:12] VITALS: BP 121/83
[2018-04-30 05:13] VITALS: BP 121/84
[2018-04-30] MEDS ORDERED: PER PO (07:20)
[2018-04-30] MEDS ORDERED: DOCU-202 PO (07:20)
--- NOTE | 2018-04-30 07:25 | Short(Outpt) Discharge Summary ---
Discharge Summary Reason for Hosp/Final Diag: (1) Anaphylaxis Status: Acute Hospital Course & Plan: 04/27/18: POD#1 s/p tracheostomy and EGD with dilation. Feeling better this morning. Will set him up with appropriate trach care supplies for home and if this can all be arranged then possible d/c to home this afternoon. 04/28/18: POD#2. Doing well. Awaiting for trach tube suction pump to be delivered to home, likely Monday. He has everything else for home trach care. Will d/c home after suction pump delivered, hopefully Monday. 04/29/18: POD #3. No new events, still awaiting suction pump - expect Monday. Continue ambulation. 04/30/18: POD#4. Doing well. May go home later today if airway suction pump delivered to his house today. Continue routine trach care. (2) Dysphagia Status: Chronic Departure Discharge to: Home, Self Care Discharge Instructions Home Meds Active Scripts Oxycodone/Acetaminophen (OXYCODONE/ACETAMINOPHEN 5MG/325 MG) 5 Mg/325 Mg Tab, 1- 2 TAB PO Q4H PRN for MODERATE PAIN, #30 TAB 0 Refills Prov:BEBETO CASTILLO MD 04/30/18 Docusate Sodium (DOCUSATE SODIUM) 100 Mg Capsule, 1 CAP PO BID, #30 CAPSULE 0 Refills Prov:BEBETO CASTILLO MD 04/30/18 Albuterol Sulfate 90 Mcg/Act (PROAIR HFA 90 MCG/ACT) 8.5 Gm Hfa.aer.ad, 2 PUFF IH Q6H, #2 INHALER 3 Refills Prov:BEBETO CASTILLO MD 04/02/18 Ondansetron 4 Mg Odt (ONDANSETRON 4 MG ODT) 4 Mg Tab.rapdis, 4 MG PO Q6H PRN for NAUSEA, #20 TAB 2 Refills Prov:LASHAUN ERNST MD 12/20/16 Icatibant Acetate (FIRAZYR) 30 Mg/3 Ml Disp.syrin, 30 MG SQ Q6H PRN for swelling, #0 Prov:FAROOQ GREENBERG MD 06/09/16 Acetaminophen (ACETAMINOPHEN) 500 Mg Tablet, 1000 MG PO Q8H PRN for PAIN, #0 Prov:FAROOQ GREENBERG MD 06/09/16 Reported Medications Icosapent Ethyl (VASCEPA) 1 Gm Capsule, 2 GM PO BID, #2 CAPSULE 03/08/18 Nortriptyline Hcl (NORTRIPTYLINE HCL) 10 Mg Cap, 10 MG PO HS, CAP 03/08/18 Insulin Aspart (NOVOLOG) 100 Unit/1 Ml Cartridge, 1-5 UNIT SQ ACHS Sliding scale 08/09/17 Multivitamin (MEN'S MULTI-VITAMIN) 1 Each Tablet, 1 EACH PO DAILY 12/17/16 Ezetimibe (ZETIA) 10 Mg Tablet, 10 MG PO QHS, TAB 12/17/16 Pantoprazole Sodium (PANTOPRAZOLE SODIUM) 40 Mg Tablet.dr, 40 MG PO BID, TAB.SR 06/08/16 Fluoxetine Hcl (PROZAC) 20 Mg Capsule, 20 MG PO QHS, CAPSULE 06/08/16 Ascorbic Acid (VITAMIN C) 1,000 Mg Tablet, 1000 MG PO BID 06/06/16 Cetirizine Hcl (ZYRTEC) 10 Mg Tablet, 10 MG PO BID, TAB 06/06/16 Insulin Degludec (Tresiba Flextouch U-100) Unknown Strength Insuln.pen, 38 UNITS SUBQ QHS 05/23/16 Gemfibrozil (GEMFIBROZIL) 600 Mg Tablet, 600 MG PO BID 05/23/16 Hydrochlorothiazide (HYDROCHLOROTHIAZIDE) 25 Mg Tablet, 1 TAB PO QDAY, TAB 05/23/16 Follow up Referrals: General Surgery - 05/08/18 @ Surgery, General with BEBETO CASTILLO MD You have a follow up appointment scheduled with Dr. Castillo on 05/08/18, at 9:30am. Diet: Regular Activity: As Tolerated Special Instructions: Keep the current trach tube in place until your follow up appointment. You may, if desired, remove the inner canulla and cap the trach tube for showers and you should also remove and clean the inner cannula every day and then reinsert it into the trach outer cannula. Bring all of your tracheostomy tubes and your dilater set, lidocaine jelly, etc to your follow up appointment with me on 05/08/18, at 9:30am. Problem Qualifiers (1) Anaphylaxis: Encounter type: subsequent encounter Qualified Codes: T78.2XXD - Anaphylactic shock, unspecified, subsequent encounter (2) Dysphagia: Dysphagia type: esophageal phase Qualified Codes: R13.10 - Dysphagia, unspecified BEBETO CASTILLO MD Apr 30, 2018 07:25
[2018-04-30 07:55] VITALS: BP 128/96
[2018-04-30] MEDS: INSULIN HUM LISPRO 100 UN/ML 3 ML VIAL SUBQ PRN ×4 (08:03→21:11)
[2018-04-30] MEDS: GEMFIBROZIL 600 MG TAB PO SCH ×2 (09:40→20:54)
[2018-04-30] MEDS: HYDROCHLOROTHIAZIDE 25 MG TAB PO SCH (09:40)
[2018-04-30] MEDS: DOCUSATE SODIUM 100 MG CAP PO SCH ×2 (09:40→20:54)
[2018-04-30] MEDS: ASCORBIC ACID 500 MG TAB PO SCH ×2 (09:40→20:54)
[2018-04-30] MEDS: PANTOPRAZOLE SOD 40 MG TABEC PO SCH ×2 (09:40→20:54)
[2018-04-30] MEDS: CETIRIZINE HCL 10 MG TAB PO SCH ×2 (09:40→20:54)
[2018-04-30 15:27] VITALS: BP 131/84
[2018-04-30 20:12] VITALS: BP 120/90
[2018-04-30] MEDS: FLUoxetine HCL 20 MG CAP PO SCH (20:54)
[2018-04-30] MEDS: EZETIMIBE 10 MG TAB PO SCH (20:55)
[2018-04-30] MEDS: NORTRIPTYLINE HCL 10 MG CAP PO SCH (20:55)
[2018-04-30 22:57] VITALS: BP 129/92
[2018-05-01 01:46] VITALS: BP 126/94
[2018-05-01] MEDS: ALBUTEROL 8 GM INHALER INH SCH ×2 (05:46→11:32)
[2018-05-01 07:10] VITALS: BP 127/86
[2018-05-01] MEDS: INSULIN HUM LISPRO 100 UN/ML 3 ML VIAL SUBQ PRN ×2 (07:48→12:22)
[2018-05-01 07:50] VITALS: BP 140/91
[2018-05-01] MEDS: PANTOPRAZOLE SOD 40 MG TABEC PO SCH (09:58)
[2018-05-01] MEDS: GEMFIBROZIL 600 MG TAB PO SCH (09:58)
[2018-05-01] MEDS: HYDROCHLOROTHIAZIDE 25 MG TAB PO SCH (09:58)
[2018-05-01] MEDS: ASCORBIC ACID 500 MG TAB PO SCH (09:58)
[2018-05-01] MEDS: DOCUSATE SODIUM 100 MG CAP PO SCH (09:58)
[2018-05-01] MEDS: CETIRIZINE HCL 10 MG TAB PO SCH (09:58)
[2018-05-01 11:08] VITALS: BP 140/91
[2018-05-01 15:04] VITALS: BP 128/93
== END 2018-05-01 08:19 | disposition home or self-care (01) ==
LOC: OR 00:56 → MED 13:45 → INTOOBSV 13:45
PROVIDERS: ADMIT Surgery; ATTEND Surgery
DX: J38.4 Edema of larynx (principal); T78.2XXD Anaphylactic shock, unspecified, subsequent encounter; R13.10 Dysphagia, unspecified; E11.9 Type 2 diabetes mellitus without complications; K21.9 Gastro-esophageal reflux disease without esophagitis; G47.33 Obstructive sleep apnea (adult) (pediatric); I10 Essential (primary) hypertension; J45.909 Unspecified asthma, uncomplicated; Z79.4 Long term (current) use of insulin
CPT/HCPCS: 31600; 36416; 43248; 82948; 94640; 96372; G0378; J1100; J1815; J1956; J2001; J2250; J2405; J2704; J2795; J3010; J3535; J7030; S0119; J1170

== ENCOUNTER 2018-05-02 16:31 | Inpatient (IN) | payer BC ==
[2018-04-27 15:16] VITALS: Ht 175.3 cm; Wt 88.2 kg
[~2018-05-02] VITALS: Ht 175.3 cm; Wt 88.2 kg
[2018-05-02] MEDS ORDERED: ALBUTEROL/IPRATROPIUM 3 ML NEB NEB ONE (17:00)
[2018-05-02] MEDS ORDERED: NALOXONE HCL 0.4 MG/ML VIAL IVP PRN (17:15)
[2018-05-02] MEDS ORDERED: FLUSH 10 ML SYR IVP PRN (17:15)
[2018-05-02] MEDS ORDERED: fentaNYL CITR 100 MCG/2 ML AMP IVP PRN (17:15)
[2018-05-02] MEDS ORDERED: ONDANSETRON 4 MG/2 ML VIAL IVP PRN (17:15)
--- NOTE | 2018-05-02 17:16 | ER Report ---
History and Physical Time Seen By MD: 16:44 Hx. of Stated Complaint: states pt had trach placed on the 3rd. about an hour ago pt became unable to speak, felt like something was blocking the trach. spoke with dr castillo, dr castillo stated there might be a mucus plug. came here for evaluation. HPI/ROS CHIEF COMPLAINT: Difficulty breathing status post trach placement HISTORY OF PRESENT ILLNESS: 47-year-old male patient presents to emergency room with complaint of difficulty breathing. Patient is 6 days status post trach placement. Patient was discharged from hospital yesterday. Patient denies having any fevers chills. He states that he's not able to inhale or exhale with his trach plugged. Patient states he has a hard time speaking because of that. Allergies: Coded Allergies: Iodinated Contrast- Oral and IV Dye (Verified Allergy, Severe, hives, sob, anaphalaxysis , 01/11/17) Penicillins (Verified Allergy, Severe, RASH, 01/11/17) cyclobenzaprine (Verified Allergy, Severe, HIVES, 01/11/17) metaxalone (Verified Allergy, Severe, HIVES,RASH, TROUBLE BREATHING, 01/11/17) morphine (Verified Allergy, Severe, hives, rash, trouble breathing, 01/11/17) tramadol (Verified Allergy, Intermediate, HIVES, 01/11/17) NSAIDS (Non-Steroidal Anti-Inflamma (Verified Allergy, Unknown, UNKNOWN, 01/11/17) hx of anaphylaxis of unknown etiology. Has taken Ibuprofen without reaction. propoxyphene (Verified Adverse Reaction, Severe, NAUSEA/VOMITING., 01/11/17) hydromorphone (Verified Adverse Reaction, Mild, NAUSEA/VOMITING, 01/11/17) ketorolac tromethamine (Verified Adverse Reaction, Mild, NAUSEA/VOMITING, 01/11/17) meperidine (Verified Adverse Reaction, Mild, NAUSEA/VOMITING, 01/11/17) diphenhydramine (Verified Adverse Reaction, Unknown, ITCHING, 08/09/17) warfarin (Verified Adverse Reaction, Unknown, ITCHING, 08/09/17) Rash Uncoded Allergies: CONTRAST DYE (Allergy, Severe, ANAPHYLAXIS, 11/01/13) Home Meds Active Scripts Oxycodone/Acetaminophen (OXYCODONE/ACETAMINOPHEN 5MG/325 MG) 5 Mg/325 Mg Tab, 1- 2 TAB PO Q4H PRN for MODERATE PAIN, #30 TAB 0 Refills Prov:BEBETO CASTILLO MD 04/30/18 Docusate Sodium (DOCUSATE SODIUM) 100 Mg Capsule, 1 CAP PO BID, #30 CAPSULE 0 Refills Prov:BEBETO CASTILLO MD 04/30/18 Albuterol Sulfate 90 Mcg/Act (PROAIR HFA 90 MCG/ACT) 8.5 Gm Hfa.aer.ad, 2 PUFF IH Q6H, #2 INHALER 3 Refills Prov:BEBETO CASTILLO MD 04/02/18 Ondansetron 4 Mg Odt (ONDANSETRON 4 MG ODT) 4 Mg Tab.rapdis, 4 MG PO Q6H PRN for NAUSEA, #20 TAB 2 Refills Prov:LASHAUN ERNST MD 12/20/16 Icatibant Acetate (FIRAZYR) 30 Mg/3 Ml Disp.syrin, 30 MG SQ Q6H PRN for swelling, #0 Prov:FAROOQ GREENBERG MD 06/09/16 Reported Medications Icosapent Ethyl (VASCEPA) 1 Gm Capsule, 2 GM PO BID, #2 CAPSULE 03/08/18 Nortriptyline Hcl (NORTRIPTYLINE HCL) 10 Mg Cap, 10 MG PO HS, CAP 03/08/18 Insulin Aspart (NOVOLOG) 100 Unit/1 Ml Cartridge, 1-5 UNIT SQ ACHS Sliding scale 08/09/17 Multivitamin (MEN'S MULTI-VITAMIN) 1 Each Tablet, 1 EACH PO DAILY 12/17/16 Ezetimibe (ZETIA) 10 Mg Tablet, 10 MG PO QHS, TAB 12/17/16 Pantoprazole Sodium (PANTOPRAZOLE SODIUM) 40 Mg Tablet.dr, 40 MG PO BID, TAB.SR 06/08/16 Fluoxetine Hcl (PROZAC) 20 Mg Capsule, 20 MG PO QHS, CAPSULE 06/08/16 Ascorbic Acid (VITAMIN C) 1,000 Mg Tablet, 1000 MG PO BID 06/06/16 Cetirizine Hcl (ZYRTEC) 10 Mg Tablet, 10 MG PO BID, TAB 06/06/16 Insulin Degludec (Tresiba Flextouch U-100) Unknown Strength Insuln.pen, 38 UNITS SUBQ QHS 05/23/16 Gemfibrozil (GEMFIBROZIL) 600 Mg Tablet, 600 MG PO BID 05/23/16 Hydrochlorothiazide (HYDROCHLOROTHIAZIDE) 25 Mg Tablet, 1 TAB PO QDAY, TAB 05/23/16 Discontinued Scripts Acetaminophen (ACETAMINOPHEN) 500 Mg Tablet, 1000 MG PO Q8H PRN for PAIN, #0 Prov:FAROOQ GREENBERG MD 06/09/16 Past Medical/Surgical History Patient has a past medical history of migraines, pericarditis, hypertension, hyperlipidemia, intubation secondary to allergic reaction, reflux, hiatal herni a, knee fracture, back pain, type 2 diabetes, mastocytosis, alcohol use. Patient has a surgical history back surgery, trachea, rotator cuff surgery, neck surgery, appendectomy. Patient has a family medical history of cancer, CAD, stroke, diabetes. Hx Smoking: No Smoking Status: Never Smoker Exposure to Second Hand Smoke?: No Hx Substance Use Disorder: No Hx Alcohol Use: Yes Constitutional Vital Sign - Last 24 Hours 05/02/18 05/02/18 05/02/18 05/02/18 16:31 16:35 16:35 17:00 Temp 98.8 Pulse ??? 114 Resp 18 20 18 B/P (MAP) 123/85 123/85 (98) 114/87 (96) Pulse Ox 93 O2 Delivery Room Air 05/02/18 05/02/18 05/02/18 05/02/18 17:01 17:13 17:13 17:23 Pulse 110 110 117 Resp 20 20 Pulse Ox 91 90 O2 Delivery Room Air Physical Exam General appearance: Alert no distress. Respiratory: Chest is non tender, lungs are clear to auscultation. Cardiac: Regular rate and rhythm DIFFERENTIAL DIAGNOSIS: After history and physical exam differential diagnosis was considered for mucous plug, blockage, upper airway edema Medical Decision Making ED Course/Re-evaluation ED Course Patient was admitted and examined, history and physical were obtained. Patient was evaluated by Dr. Castillo. His evaluation felt that there was upper airway swelling, he states that he could feel some resistance. He felt the patient should be admitted, treated with nebulizers and if there is no improvement by tomorrow patient will be taken to the OR for bronchoscopy. Patient's verbalized her standing agreement with Dr. Castillo's plan. Decision to Disposition Date: May 02, 2018 Decision to Disposition Time: 17:11 Depart Departure Latest Vital Signs Vital Signs Date Time Temp Pulse Resp B/P (MAP) Pulse Ox O2 Delivery O2 Flow Rate FiO2 05/02/18 17:23 117 20 05/02/18 17:13 90 Room Air 05/02/18 17:00 114/87 (96) 05/02/18 16:35 98.8 Impression: Primary Impression: Tracheostomy care Condition: Condition Unchanged Disposition: Admitted from ER Referrals: BEBETO CHAVES MD (PCP) FERMIN LOCKWOOD May 02, 2018 17:16
--- NOTE | 2018-05-02 17:38 | Gen Surgery History & Physical ---
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 He did really pretty well in the postoperative period but remained in the hospital over the weekend while we waited to have a trach suction pump delivered to his house which happened yesterday. He was then discharged yesterday afternoon and did well overnight but then this afternoon had a coughing spell where he often numerous times but did not necessarily bring up any mucus but after the coughing episode he noticed that with the Passy-Kobe valve on the tracheostomy tube, he could inhale but exhaling was difficult and he could not talk like he could before his coughing episode. He called the clinic and we had him come into the emergency room for immediate evaluation. Soon after he arrived in the ER I came down and evaluated him. He is not in extremis and with the Passy-Adell valve off, he is moving air without any problems through the tracheostomy tube. History Problems: (1) Sleep apnea Status: Chronic (2) Hyperlipemia Status: Chronic (3) GERD (gastroesophageal reflux disease) Status: Chronic (4) Hypertension Status: Chronic (5) Occipital headache Status: Chronic (6) Type 2 diabetes mellitus Status: Chronic (7) ANXIETY DISORDER DUE TO KNOWN PHYSIOLOGICAL CONDITION Status: Chronic (8) Idiopathic anaphylaxis Status: Chronic (9) S/P total knee arthroplasty Status: Chronic (10) History of appendectomy Status: Chronic (11) History of brain surgery Status: Chronic (12) History of cervical spinal arthrodesis Status: Chronic (13) History of Jose R fundoplication Status: Chronic (14) History of knee replacement Status: Chronic (15) History of tracheostomy Status: Chronic Home Meds Active Scripts Oxycodone/Acetaminophen (OXYCODONE/ACETAMINOPHEN 5MG/325 MG) 5 Mg/325 Mg Tab, 1- 2 TAB PO Q4H PRN for MODERATE PAIN, #30 TAB 0 Refills Prov:BEBETO CASTILLO MD 04/30/18 Docusate Sodium (DOCUSATE SODIUM) 100 Mg Capsule, 1 CAP PO BID, #30 CAPSULE 0 Refills Prov:BEBETO CASTILLO MD 04/30/18 Albuterol Sulfate 90 Mcg/Act (PROAIR HFA 90 MCG/ACT) 8.5 Gm Hfa.aer.ad, 2 PUFF IH Q6H, #2 INHALER 3 Refills Prov:BEBETO CASTILLO MD 04/02/18 Ondansetron 4 Mg Odt (ONDANSETRON 4 MG ODT) 4 Mg Tab.rapdis, 4 MG PO Q6H PRN for NAUSEA, #20 TAB 2 Refills Prov:LASHAUN ERNST MD 12/20/16 Icatibant Acetate (FIRAZYR) 30 Mg/3 Ml Disp.syrin, 30 MG SQ Q6H PRN for swelling, #0 Prov:FAROOQ GREENBERG MD 06/09/16 Reported Medications Icosapent Ethyl (VASCEPA) 1 Gm Capsule, 2 GM PO BID, #2 CAPSULE 03/08/18 Nortriptyline Hcl (NORTRIPTYLINE HCL) 10 Mg Cap, 10 MG PO HS, CAP 03/08/18 Insulin Aspart (NOVOLOG) 100 Unit/1 Ml Cartridge, 1-5 UNIT SQ ACHS Sliding scale 08/09/17 Multivitamin (MEN'S MULTI-VITAMIN) 1 Each Tablet, 1 EACH PO DAILY 12/17/16 Ezetimibe (ZETIA) 10 Mg Tablet, 10 MG PO QHS, TAB 12/17/16 Pantoprazole Sodium (PANTOPRAZOLE SODIUM) 40 Mg Tablet.dr, 40 MG PO BID, TAB.SR 06/08/16 Fluoxetine Hcl (PROZAC) 20 Mg Capsule, 20 MG PO QHS, CAPSULE 06/08/16 Ascorbic Acid (VITAMIN C) 1,000 Mg Tablet, 1000 MG PO BID 06/06/16 Cetirizine Hcl (ZYRTEC) 10 Mg Tablet, 10 MG PO BID, TAB 06/06/16 Insulin Degludec (Tresiba Flextouch U-100) Unknown Strength Insuln.pen, 38 UNITS SUBQ QHS 05/23/16 Gemfibrozil (GEMFIBROZIL) 600 Mg Tablet, 600 MG PO BID 05/23/16 Hydrochlorothiazide (HYDROCHLOROTHIAZIDE) 25 Mg Tablet, 1 TAB PO QDAY, TAB 05/23/16 Discontinued Scripts Acetaminophen (ACETAMINOPHEN) 500 Mg Tablet, 1000 MG PO Q8H PRN for PAIN, #0 Prov:FAROOQ GREENBERG MD 06/09/16 Allergies: Coded Allergies: Iodinated Contrast- Oral and IV Dye (Verified Allergy, Severe, hives, sob, anaphalaxysis , 01/11/17) Penicillins (Verified Allergy, Severe, RASH, 01/11/17) cyclobenzaprine (Verified Allergy, Severe, HIVES, 01/11/17) metaxalone (Verified Allergy, Severe, HIVES,RASH, TROUBLE BREATHING, ) morphine (Verified Allergy, Severe, hives, rash, trouble breathing, 01/11/17) tramadol (Verified Allergy, Intermediate, HIVES, 01/11/17) NSAIDS (Non-Steroidal Anti-Inflamma (Verified Allergy, Unknown, UNKNOWN, 01/11/17) hx of anaphylaxis of unknown etiology. Has taken Ibuprofen without reaction. propoxyphene (Verified Adverse Reaction, Severe, NAUSEA/VOMITING., 01/11/17) hydromorphone (Verified Adverse Reaction, Mild, NAUSEA/VOMITING, 01/11/17) ketorolac tromethamine (Verified Adverse Reaction, Mild, NAUSEA/VOMITING, 01/11/17) meperidine (Verified Adverse Reaction, Mild, NAUSEA/VOMITING, 01/11/17) diphenhydramine (Verified Adverse Reaction, Unknown, ITCHING, 08/09/17) warfarin (Verified Adverse Reaction, Unknown, ITCHING, 08/09/17) Rash Uncoded Allergies: CONTRAST DYE (Allergy, Severe, ANAPHYLAXIS, 11/01/13) Patient History: FH: HTN (hypertension) FATHER FH: PR (myocardial infarction) MOTHER FH: diabetes mellitus FATHER MOTHER BROTHER OR SISTER FH: heart disease FATHER FH: stroke MOTHER Review of Systems All Systems Reviewed/Normal: Yes, Except as Noted Respiratory: Shortness of Breath, Cough, Wheezing Exam General Appearance: Alert, Awake, No Acute Distress, Afebrile Neuro: No Gross deficits Eyes: PERRLA Neck: Other (tracheostomy tube appears to be in good position and he's moving air through the tracheostomy tube without any problems both in inhalation and exhalation. Having him cough does not result in any significant mucus output. With the Passy-Kobe valve in place, he cannot exhale even through his platinum airway very well but he can inhale quite well through the Passy-Adell valve. When I removed the valve in place my finger over the end of the trach, he can inhale through his larynx but with some resistance and exhaling occurs with even more resistance and I feel the pressure in his airways while he is exhaling through his larynx. He can phonate to some degree with exhalation while I plug his tracheostomy tube with my finger but again there is resistance.) Extremities: Warm, Perfused Psych: Alert & Oriented X3, Appropriate Mood & Affect Assessment and Plan Problems: (1) Laryngospasm Status: Acute Assessment & Plan: 05/02/18: I suspect that he went into laryngospasm with his coughing spell which explains his symptoms. He is breathing without any difficulty through the tracheostomy tube. I have recommended that we admit him to the hospital overnight and we will give him bronchodilators and treat him symptomatically and watch him closely. If his symptoms do not improve by the morning then I will schedule him for bronchoscopy tomorrow where I evaluate the trach position, his larynx, and his trachea above and below the trach tube. He is agreeable with this plan. Condition Stable Time Spent: < 30 min Venous Thromboembolism VTE Risk Physician Assess for VTE Risk: Yes Patient's VTE Risk: Low VTE Diagnostic Test 2 Days Prior to Admit: No Antithrombotics Is Pt On Any Antithrombotics?: No BEBETO CASTILLO MD May 02, 2018 17:38
[2018-05-02 18:12] VITALS: BP 106/86
[2018-05-02] MEDS: ALBUTEROL/IPRATROPIUM 3 ML NEB NEB SCH ×2 (18:36→21:16)
[2018-05-02] MEDS: DOCUSATE SODIUM 100 MG CAP PO SCH (20:33)
[2018-05-02] MEDS: CETIRIZINE HCL 10 MG TAB PO SCH (20:34)
[2018-05-02] MEDS: INSULIN HUM LISPRO 100 UN/ML 3 ML VIAL SUBQ PRN (20:46)
[2018-05-02] MEDS ORDERED: EZETIMIBE 10 MG TAB PO SCH (21:00)
[2018-05-02] MEDS ORDERED: FLUoxetine HCL 20 MG CAP PO SCH (21:00)
[2018-05-02] MEDS ORDERED: NORTRIPTYLINE HCL 10 MG CAP PO SCH (21:00)
[2018-05-03] VITALS (12 sets, daily range): BP systolic 94–129; BP diastolic 65–87
[2018-05-03] MEDS: ALBUTEROL/IPRATROPIUM 3 ML NEB NEB SCH ×4 (04:59→17:10)
[2018-05-03] MEDS ORDERED: HYDROGEN PEROXID 3% 473 ML BTL TP ONE (06:44)
[2018-05-03] MEDS ORDERED: NS(*) 0.9% 1000 ML BAG 1,000 ML IV PRN (07:35)
--- NOTE | 2018-05-03 07:36 | General Surgery Progress Note ---
Subjective Progress Notes Subjective Throat feels the same as last night. He can breath fine through the trach tube but not if the trach tube is plugged; can't phonate very well. Physical Exam Vital Signs Date Time Temp Pulse Resp B/P (MAP) Pulse Ox O2 Delivery O2 Flow Rate FiO2 05/03/18 05:02 87 18 05/03/18 05:00 94 Room Air 05/03/18 04:24 98.6 124/87 (99) Intake and Output0 05/03/18 07:00 Intake Total 400 ml Balance 400 ml Intake Oral 400 ml # Voids 4 General Appearance: Alert, Awake, No Acute Distress, Afebrile Neck: Other (Trach site looks good.) Cardiovascular: Regular Rate and Rhythm Respiratory: Clear to Auscultation Assessment and Plan Problems: (1) Laryngospasm Status: Acute Assessment & Plan: 05/02/18: I suspect that he went into laryngospasm with his coughing spell which explains his symptoms. He is breathing without any difficulty through the tracheostomy tube. I have recommended that we admit him to the hospital overnight and we will give him bronchodilators and treat him symptomatically and watch him closely. If his symptoms do not improve by the morning then I will schedule him for bronchoscopy tomorrow where I evaluate the trach position, his larynx, and his trachea above and below the trach tube. He is agreeable with this plan. 05/03/18: Feels same as yesterday. Will add on for bronchoscopy to inspect larynx, trachea above trach tube, and trachea below trach tube today. Pt agreeable with this plan. Condition Stable. Time Spent: < 30 min Exam Sepsis Risk: No Definite Risk BEBETO CASTILLO MD May 03, 2018 07:36
[2018-05-03] MEDS: INSULIN HUM LISPRO 100 UN/ML 3 ML VIAL SUBQ PRN ×2 (08:22→17:04)
[2018-05-03] MEDS ORDERED: PANTOPRAZOLE SOD 40 MG IV VIAL IVP SCH (09:00)
[2018-05-03] MEDS: CETIRIZINE HCL 10 MG TAB PO SCH (09:00)
[2018-05-03] MEDS: DOCUSATE SODIUM 100 MG CAP PO SCH (09:00)
[2018-05-03] MEDS ORDERED: HYDROCHLOROTHIAZIDE 25 MG TAB PO SCH (09:00)
[2018-05-03] MEDS ORDERED: NORMOSOL R SOLN(*) 1000 ML BAG 1,000 ML IV ONE (09:12)
[2018-05-03] MEDS ORDERED: MIDAZOLAM 2 MG/2 ML VIAL ONE ×2 (10:16→10:18)
[2018-05-03] MEDS ORDERED: ONDANSETRON 4 MG/2 ML VIAL ONE (10:32)
[2018-05-03] MEDS ORDERED: DEXAMETHASONE SOD PHOS 10MG/ML ONE (10:32)
[2018-05-03] MEDS ORDERED: fentaNYL CITR 100 MCG/2 ML AMP ONE (10:33)
--- NOTE | 2018-05-03 11:53 | Post Operative Progress Note ---
Post Operative Progress Note Date: May 03, 2018 Time: 11:30 Surgeon: Hanna Dictation number: [id number] Anesthesia: GETA through tracheostomy tube by Dr. España Pre-Op Diagnosis: Tracheostomy dysfunction Post-Op Diagnosis: LISS Findings: Tracheal tissue obstructing the fenestration Procedure(s): Bronchoscopy with endoscopic forcep removal of obstructing tissue Specimen Removed:(May be N/A): None Complications: None Fluids: See anesthesia record Estimated Blood Loss: Minimal Date OP Note Dictated: May 03, 2018 Time OP Note Dictated: 11:31 BEBETO CASTILLO MD May 03, 2018 11:53
--- NOTE | 2018-05-03 12:23 | OPERATIVE REPORT 1 ---
EVENT DATE: May 03, 2018 SURGEON: Johnnie Ferreira MD ANESTHESIOLOGIST: Micah España MD ANESTHESIA: General endotracheal anesthesia through the tracheostomy tube. PREOPERATIVE DIAGNOSIS Dysfunctioning tracheostomy tube. POSTOPERATIVE DIAGNOSIS Dysfunctioning tracheostomy tube. PROCEDURE PERFORMED Bronchoscopy with forceps removal of some tracheal tissue obstructing the fenestration of the tracheostomy tube. COMPLICATIONS None. CONDITION Stable. FINDINGS The patient had some tracheal tissue that had folded up over the fenestration allowing him to not breath through his paimiut airway and he was unable to phonate due to this obstruction of the fenestration, but he was able to breathe through the tracheostomy tube itself. INDICATIONS This is a 47-year-old gentleman who has for the last 5 or 6 years idiopathic anaphylactic reactions to some unknown environmental exposure. He has been under the care of the [place] at the [facility] in [place], but no inciting substance has been found. He requested a tracheostomy tube because of these idiopathic anaphylactic reactions resulting in laryngeal edema and repeated intubations and tracheostomy was performed a week ago. He was sent home two days ago and was doing well until yesterday when he had a coughing spell and then after the coughing spell he was unable to inhale or exhale through his paimiut airway and he had to take the passing air valve off in order to breath through the tracheostomy. He was able to breath through the tracheostomy tube without problems. I admitted him, but his symptoms did not improve overnight, so I consented him for bronchoscopy today. DESCRIPTION OF PROCEDURE The patient was brought to the operating room and placed supine on the operating table. The fenestrated inner cannula was switched to the nonfenestrated inner cannula and Dr. España hooked him up to the ventilator circuit and anesthetized him. I then inserted the bronchoscope through his mouth, identified the vocal cords which appeared rather normal and then was able to get the scope through the cords and into the trachea. Immediately, I could see the tracheostomy tube, but there was tissue from the anterior wall of the trachea that had folded down and was covering up the fenestration. I was able to pluck this out with the endoscopic forceps and I then irrigated out the trachea above the tracheostomy tube and suctioned out all of the irrigation. I was able to clearly see the fenestration when I was all done with this. I then withdrew the scope from his mouth and then inserted it into the tracheostomy tube and inspected the trachea below the tracheostomy but and this appeared unremarkable. I did not perform a complete bronchoscopy with all of the bronchi and subsegmental bronchi, but I did go down to the carole and into the main stem bronchi bilaterally and these appeared unremarkable and then when I withdrew the scope back through the tracheostomy tube, we swapped him back out to the fenestrated inner cannula and I plugged the trach up and he was able to breath through his paimiut airway more normally. He was then awakened and brought to the recovery room in good condition. KIERAN
--- NOTE | 2018-05-03 13:27 | Medical Nutrition Therapy ---
Nutrition Anthropometrics Height (Inches): 69.00 Height (Calculated Centimeters: 175.500161 Weight (Pounds): 194 Weight (Calculated Kilograms): 88.224 Lopez Nutrition Score: Probably Inadequate Lopez Nutrition Risk Score: 16 Dietary Referral Nutrition Risk Factors: Mech. Ventilated Nutrition Risk Comment: Physical Findings Physical Appearance: Overweight BMI 25-29 Skin Appearance Skin Appearance: Edema Edema Location Modifier: Edema Location: Type of Edema: Degree of Edema: Gastrointestinal Symptoms GI Symtoms: Tube Present: Bowel Sounds: Recent Bowel Pattern: Stool Characteristics: Nutritional Diagnosis Nutritional Risk Acuity 2: Blood Glucose > 300mg/dl, Swallowing Problem Nutritional Risk Acuity 3: Weight Loss Nutritional Risk Acuity 4: Good Appetite Past Medical History: T2DM, sleep apnea, ideopathic anaphalaxis, GERD, HTN, hyperlipemia, pericarditis, head trauma, appendectomy, hx of brain surgery, cervical spinal arthrodesis, reyna fundoplication, knee replacement, tracheostomy Nutritional Acuity: 2-Moderate Nutrition Diagnosis: Inconsistent Carb. Intake Nutrition Etiology: Physiological Causes Nutrition Problem/Etiology/Sym: AEB BG 310 Energy Requirement: 2285 (M- St J) Protein Requirement: 88 (1gm/kg) Fluid Requirement: 2650 (30ml/kg) Diet Type: Diabetic Nutrition Intervention: Cont diet as ordered, Encourage intake Drug: Diuretics Drug/Nutrition Recommendations: Check Serum K+ Nutrition Monitoring & Eval Nutrition Goals: Eat 75-100% Meal RD Patient Assessment Time: [address] Assessment Type: RD Assessment Patient Nutrition Acuity: 2-Moderate Follow Up Date: May 08, 2018 Nutritional Comment: 05/03 Pt with trach admitted for Laryngospasm. Pt reports swallowing difficulites possibly r/t trach but no diet modifications needed. Pt has lost 10# from last admit 2 months age. Slow wt loss desireable as BMI was in obese range curretnly in overwt range . Pt on ADA diet and eating 100%. BG on admitting was 331 but has declined to 195. Will cont to monitor and encourage intake. ANISHA CARD May 03, 2018 13:27
--- NOTE | 2018-05-03 17:35 | Short(Outpt) Discharge Summary ---
Discharge Summary Reason for Hosp/Final Diag: (1) Laryngospasm Status: Acute Hospital Course & Plan: 05/02/18: I suspect that he went into laryngospasm with his coughing spell which explains his symptoms. He is breathing without any difficulty through the tracheostomy tube. I have recommended that we admit him to the hospital overnight and we will give him bronchodilators and treat him symptomatically and watch him closely. If his symptoms do not improve by the morning then I will schedule him for bronchoscopy tomorrow where I evaluate the trach position, his larynx, and his trachea above and below the trach tube. He is agreeable with this plan. 05/03/18: Feels same as yesterday. Will add on for bronchoscopy to inspect larynx, trachea above trach tube, and trachea below trach tube today. Pt agreeable with this plan. 05/03/18: Bronchoscopy completed today, tissue removed from trachea that was blocking the fenestration on his trach tube. He's now doing well and wishes to go home. Will d/c to home this evening with f/u as scheduled in my office next week. Departure Discharge to: Home, Self Care Discharge Instructions Home Meds Active Scripts Oxycodone/Acetaminophen (OXYCODONE/ACETAMINOPHEN 5MG/325 MG) 5 Mg/325 Mg Tab, 1- 2 TAB PO Q4H PRN for MODERATE PAIN, #30 TAB 0 Refills Prov:BEBETO CASTILLO MD 04/30/18 Docusate Sodium (DOCUSATE SODIUM) 100 Mg Capsule, 1 CAP PO BID, #30 CAPSULE 0 Refills Prov:BEBETO CASTILLO MD 04/30/18 Albuterol Sulfate 90 Mcg/Act (PROAIR HFA 90 MCG/ACT) 8.5 Gm Hfa.aer.ad, 2 PUFF IH Q6H, #2 INHALER 3 Refills Prov:BEBETO CASTILLO MD 04/02/18 Ondansetron 4 Mg Odt (ONDANSETRON 4 MG ODT) 4 Mg Tab.rapdis, 4 MG PO Q6H PRN for NAUSEA, #20 TAB 2 Refills Prov:LASHAUN ERNST MD 12/20/16 Reported Medications Nortriptyline Hcl (NORTRIPTYLINE HCL) 10 Mg Cap, 10 MG PO HS, CAP 03/08/18 Insulin Aspart (NOVOLOG) 100 Unit/1 Ml Cartridge, 1-5 UNIT SQ ACHS Sliding scale 08/09/17 Multivitamin (MEN'S MULTI-VITAMIN) 1 Each Tablet, 1 EACH PO DAILY 12/17/16 Ezetimibe (ZETIA) 10 Mg Tablet, 10 MG PO QHS, TAB 12/17/16 Pantoprazole Sodium (PANTOPRAZOLE SODIUM) 40 Mg Tablet.dr, 40 MG PO BID, TAB.SR 06/08/16 Fluoxetine Hcl (PROZAC) 20 Mg Capsule, 20 MG PO QHS, CAPSULE 06/08/16 Ascorbic Acid (VITAMIN C) 1,000 Mg Tablet, 1000 MG PO BID 06/06/16 Cetirizine Hcl (ZYRTEC) 10 Mg Tablet, 10 MG PO BID, TAB 06/06/16 Insulin Degludec (Tresiba Flextouch U-100) Unknown Strength Insuln.pen, 38 UNITS SUBQ QHS 05/23/16 Gemfibrozil (GEMFIBROZIL) 600 Mg Tablet, 600 MG PO BID 05/23/16 Hydrochlorothiazide (HYDROCHLOROTHIAZIDE) 25 Mg Tablet, 1 TAB PO QDAY, TAB 05/23/16 Discontinued Reported Medications Icosapent Ethyl (VASCEPA) 1 Gm Capsule, 2 GM PO BID, #2 CAPSULE 03/08/18 Discontinued Scripts Icatibant Acetate (FIRAZYR) 30 Mg/3 Ml Disp.syrin, 30 MG SQ Q6H PRN for swelling, #0 Prov:FAROOQ GREENBERG MD 06/09/16 Acetaminophen (ACETAMINOPHEN) 500 Mg Tablet, 1000 MG PO Q8H PRN for PAIN, #0 Prov:FAROOQ GREENBERG MD 06/09/16 Follow up Referrals: General Surgery - 05/08/18 @ Surgery, General with BEBETO CASTILLO MD You have a follow up appointment scheduled with Dr. Castillo on 05/08/18, at 9:30am. Diet: Regular Activity: As Tolerated Special Instructions: Continue caring for your tracheostomy tube as previously instructed and as you have been doing! I'll see you in the office next week and if you have any further problems after going home don't hesitate to call my office so they can let me know or come in to the ER. BEBETO CASTILLO MD May 03, 2018 17:35
[2018-05-03] MEDS ORDERED: PANTOPRAZOLE SOD 40 MG TABEC PO SCH (21:00)
== END 2018-05-03 18:52 | disposition home or self-care (01) | DRG 206 ==
LOC: ER 17:45 → MED 17:46
PROVIDERS: ADMIT Surgery; ATTEND Surgery
PROC: 0BD18ZX Extraction of Trachea, Via Natural or Artificial Opening Endoscopic, Diagnostic (ICD-10-PCS; principal; 2018-05-03 10:23)
DX: J95.03 Malfunction of tracheostomy stoma (principal); I31.9 Disease of pericardium, unspecified; D47.09 Other mast cell neoplasms of uncertain behavior; J38.5 Laryngeal spasm; I10 Essential (primary) hypertension; E78.5 Hyperlipidemia, unspecified; K21.9 Gastro-esophageal reflux disease without esophagitis; E11.9 Type 2 diabetes mellitus without complications; G47.30 Sleep apnea, unspecified; G44.89 Other headache syndrome; F06.4 Anxiety disorder due to known physiological condition; J45.909 Unspecified asthma, uncomplicated; Z98.1 Arthrodesis status; Z88.0 Allergy status to penicillin; Z88.1 Allergy status to other antibiotic agents; Z88.5 Allergy status to narcotic agent; Z88.8 Allergy status to other drugs, medicaments and biological substances; Z88.6 Allergy status to analgesic agent; Z79.4 Long term (current) use of insulin
CPT/HCPCS: 36416; 82948; 94640; 96374; 99284; C9113; J1100; J2250; J2405; J3010; J7030

== ENCOUNTER 2018-05-23 12:38 | Inpatient (IN) | payer BC ==
[~2018-05-23] VITALS: Ht 175.3 cm; Wt 88.2 kg
[2018-05-23] VITALS (8 sets, daily range): BP systolic 98–117; BP diastolic 66–78
[~2018-05-23 12:38] MED LIST changes: +LIDOCAINE 2% TOP
[2018-05-23] MEDS ORDERED: ALBUTEROL/IPRATROPIUM 3 ML NEB NEB ONE (12:45)
--- NOTE | 2018-05-23 12:47 | ER Report ---
History and Physical Time Seen By MD: 12:46 HPI/ROS CHIEF COMPLAINT: Wheezing trach concern HISTORY OF PRESENT ILLNESS: 41 sexual male history of trach placement on the 2nd of this month secondary to presumed angioedema and respiratory compromise requiring intubation eventually tracheostomy patient comes in today with 2 days of worsening wheezing and shortness of breath and having some purulent material coming from the trach site itself patient denies fever chills or sweats nausea vomiting some mild associated shortness of breath no chest pain patient has no additional complaints at this time REVIEW OF SYSTEMS: Respiratory: Cough and shortness of breath Cardiovascular: No chest pain, no palpitations. Gastrointestinal: No vomiting, no abdominal pain. Musculoskeletal: No back pain. Remainder of the 14 system rev: Yes Allergies: Coded Allergies: Iodinated Contrast- Oral and IV Dye (Verified Allergy, Severe, hives, sob, anaphalaxysis , 01/11/17) Penicillins (Verified Allergy, Severe, RASH, 01/11/17) cyclobenzaprine (Verified Allergy, Severe, HIVES, 01/11/17) metaxalone (Verified Allergy, Severe, HIVES,RASH, TROUBLE BREATHING, 01/11/17) morphine (Verified Allergy, Severe, hives, rash, trouble breathing, 01/11/17) tramadol (Verified Allergy, Intermediate, HIVES, 01/11/17) NSAIDS (Non-Steroidal Anti-Inflamma (Verified Allergy, Unknown, UNKNOWN, 01/11/17) hx of anaphylaxis of unknown etiology. Has taken Ibuprofen without reaction. lisinopril (Verified Allergy, Unknown, 05/23/18) propoxyphene (Verified Adverse Reaction, Severe, NAUSEA/VOMITING., 01/11/17) hydromorphone (Verified Adverse Reaction, Mild, NAUSEA/VOMITING, 01/11/17) ketorolac tromethamine (Verified Adverse Reaction, Mild, NAUSEA/VOMITING, 01/11/17) meperidine (Verified Adverse Reaction, Mild, NAUSEA/VOMITING, 01/11/17) diphenhydramine (Verified Adverse Reaction, Unknown, ITCHING, 08/09/17) warfarin (Verified Adverse Reaction, Unknown, ITCHING, 08/09/17) Rash Uncoded Allergies: CONTRAST DYE (Allergy, Severe, ANAPHYLAXIS, 11/01/13) Home Meds Active Scripts Oxycodone/Acetaminophen (OXYCODONE/ACETAMINOPHEN 5MG/325 MG) 5 Mg/325 Mg Tab, 1- 2 TAB PO Q4H PRN for MODERATE PAIN, #30 TAB 0 Refills Prov:BEBETO CASTILLO MD 04/30/18 Docusate Sodium (DOCUSATE SODIUM) 100 Mg Capsule, 1 CAP PO BID, #30 CAPSULE 0 Refills Prov:BEBETO CASTILLO MD 04/30/18 Albuterol Sulfate 90 Mcg/Act (PROAIR HFA 90 MCG/ACT) 8.5 Gm Hfa.aer.ad, 2 PUFF IH Q6H, #2 INHALER 3 Refills Prov:BEBETO CASTILLO MD 04/02/18 Ondansetron 4 Mg Odt (ONDANSETRON 4 MG ODT) 4 Mg Tab.rapdis, 4 MG PO Q6H PRN for NAUSEA, #20 TAB 2 Refills Prov:LASHAUN ERNST MD 12/20/16 Reported Medications [lidocaine 2% gel] No Conflict Check, 1 THOMAS TOP Q4H PRN for PAIN, #1 TUBE 1 Refill 05/18/18 Nortriptyline Hcl (NORTRIPTYLINE HCL) 10 Mg Cap, 10 MG PO HS, CAP 03/08/18 Insulin Aspart (NOVOLOG) 100 Unit/1 Ml Cartridge, 1-5 UNIT SQ ACHS Sliding scale 08/09/17 Multivitamin (MEN'S MULTI-VITAMIN) 1 Each Tablet, 1 EACH PO DAILY 12/17/16 Ezetimibe (ZETIA) 10 Mg Tablet, 10 MG PO QHS, TAB 12/17/16 Pantoprazole Sodium (PANTOPRAZOLE SODIUM) 40 Mg Tablet.dr, 40 MG PO BID, TAB.SR 06/08/16 Fluoxetine Hcl (PROZAC) 20 Mg Capsule, 20 MG PO QHS, CAPSULE 06/08/16 Ascorbic Acid (VITAMIN C) 1,000 Mg Tablet, 1000 MG PO BID 06/06/16 Cetirizine Hcl (ZYRTEC) 10 Mg Tablet, 10 MG PO BID, TAB 06/06/16 Insulin Degludec (Tresiba Flextouch U-100) Unknown Strength Insuln.pen, 38 UNITS SUBQ QHS 05/23/16 Gemfibrozil (GEMFIBROZIL) 600 Mg Tablet, 600 MG PO BID 05/23/16 Hydrochlorothiazide (HYDROCHLOROTHIAZIDE) 25 Mg Tablet, 1 TAB PO QDAY, TAB 05/23/16 Reviewed Nurses Notes: Yes Old Medical Records Reviewed: Yes Hx Smoking: No Smoking Status: Never Smoker Exposure to Second Hand Smoke?: No Hx Substance Use Disorder: No Hx Alcohol Use: Yes Constitutional Vital Sign - Last 24 Hours 05/23/18 05/23/18 05/23/18 05/23/18 12:43 12:59 12:59 13:07 Temp 98.3 Pulse 111 104 105 Resp 24 18 18 B/P (MAP) 144/99 Pulse Ox 96 93 O2 Delivery Room Air Room Air Physical Exam General Appearance: The patient is alert, has no immediate need for airway protection and no current signs of toxicity. Appears short of breath Eyes: Pupils equal and round no injection. Respiratory: Wheezing throughout lung reddy trach site examination does show some erythema around the trach site no obvious purulent material Cardiac: regular rate and rhythm [ ] Gastrointestinal: Abdomen is soft and non tender, no masses, bowel sounds normal. Musculoskeletal: Neck: Neck is supple and non tender. Extremities have full range of motion and are non tender. Skin: No rashes or lesions. [ ] DIFFERENTIAL DIAGNOSIS: After history and physical exam differential diagnosis was considered for upper respiratory infection trach obstruction pneumonia bronchitis hyperreactive airway Medical Decision Making ED Course/Re-evaluation ED Course Medical decision-making 41 social male trach placed comes in with some mild muscular distress seen by her Gen. surgery at bedside will be admitted today for bronchoscopy Decision to Disposition Date: May 23, 2018 Decision to Disposition Time: 13:47 Depart Departure Latest Vital Signs Vital Signs Date Time Temp Pulse Resp B/P (MAP) Pulse Ox O2 Delivery O2 Flow Rate FiO2 05/23/18 13:07 105 18 05/23/18 12:59 93 Room Air 05/23/18 12:43 98.3 144/99 Impression: Primary Impression: Respiratory distress Condition: Improved Disposition: Admitted from ER Referrals: BEBETO CHAVES MD (PCP) CLIVE LUNA MD May 23, 2018 12:47
[2018-05-23] MEDS ORDERED: predniSONE 20 MG TAB PO ONE (12:50)
[2018-05-23 14:50] LABS: PLATELET COUNT, AUTOMATED 363 K/uL (150-450)
--- NOTE | 2018-05-23 14:55 | NUR ---
1455- RA SATS NOTED TO BE 85%, PT REPORTS FEELING DROWSY, PT HAS TRACHEOSTOMY, PLACED PT ON 5LPM VIA OXY MASK 1456- O2 SATS AT 94% ON 5LPM VIA BB 1505- IV INFUSING WITH NR, PATENT, NO S/S OF INFILTRATION 1512- VSS, TEFLA PAD PLACED UNDER TRACH SECUREMENT TO HELP INCREASE COMFORT 1515- CarolineJ MELVA CAIN REVIEWED CONSENTS WITH PT 1530- PT REPORT 01/01 PAIN WILL CONSULT WITH DR. PAEZ REGARDING PAIN
[2018-05-23] MEDS: NORMOSOL R SOLN(*) 1000 ML BAG 1,000 ML IV PRN ×2 (15:03→22:33)
--- NOTE | 2018-05-23 15:28 | RADIOLOGY IMAGING REPORT ---
FACILITY: [facility] - [place] PATIENT NAME: Payton La : 1970 MR: [id number] V: [id number] EXAM DATE: ORDERING PHYSICIAN: CLIVE LUNA TECHNOLOGIST: Location: [facility] [place] Patient: Payton La : 1970 Visit/Account:[id number] Date of Sevice: 05/23/2018 2 VIEWS CHEST INDICATION: Cough, wheeze, shortness of breath. COMPARISON: X-ray examination of the chest from April 26 FINDINGS: Tracheostomy tube appears midline. Volumes are on the lower and. Lateral view demonstrates linear type atelectasis within the lingula. There is no focal infiltrate, consolidation, effusion or pneumothorax. No acute bony finding IMPRESSION: 1. Minimal linear type atelectasis in the lingula. Midline tracheostomy. Report Dictated By: Clive Parry MD at 05/23/2018 3:21 PM Report E-Signed By: Clive Parry MD at 05/23/2018 3:22 PM [id number]
[2018-05-23] MEDS ORDERED: ACETAMINOPHEN(*)1000 MG/100 ML 100 ML IVPB ONE (16:10)
--- NOTE | 2018-05-23 16:10 | NUR ---
1610- CONSULTED WITH DR. PAEZ, 1,000MG IV TYLENOL ORDERED FOR PT, PT REPORTS THAT IS OK AND HE HAS HAD IT BEFORE AND TOLERATED IT WELL 161- BEDSIDE BLOOD SUGAR [address] PAEZ 161- STARTED IV TYLENOL INFUSION 162- DR. PAEZ INTO VISIT BRIEFLY WITH PT
[2018-05-23] MEDS ORDERED: PROPOFOL EMUL(*) 10MG/ML 20 ML 20 ML ONE (16:50)
[2018-05-23] MEDS ORDERED: LIDOCAINE MPF 1% 5 ML VIAL ONE (16:50)
[2018-05-23] MEDS ORDERED: ROCURONIUM BROM 10 MG/ML 10 ML ONE (19:33)
[2018-05-23] MEDS ORDERED: SUGAMMADEX SOD 200 MG/2 ML SDV ONE (19:46)
[2018-05-23] MEDS ORDERED: fentaNYL CITR 100 MCG/2 ML AMP ONE ×2 (19:53→21:01)
[2018-05-23] MEDS ORDERED: ONDANSETRON 4 MG/2 ML VIAL ONE (20:09)
--- NOTE | 2018-05-23 20:10 | Post Operative Progress Note ---
Post Operative Progress Note Date: May 23, 2018 Time: 20:08 Surgeon: terra hugo md Extern: none Anesthesia: gen dr. reese Pre-Op Diagnosis: sob when trach capped Post-Op Diagnosis: same Findings: tissue over fenestration Procedure(s): bronchoscopy, trach exchange Complications: none Estimated Blood Loss: minimal MARIA EUGENIA HUGO May 23, 2018 20:10
[2018-05-23] MEDS: fentaNYL CITR 100 MCG/2 ML AMP ONE ×2 (20:13→20:18)
[2018-05-23] MEDS ORDERED: NS(*) 0.9% 1000 ML BAG 1,000 ML IV PRN (22:55)
[2018-05-23] MEDS ORDERED: ONDANSETRON 4 MG/2 ML VIAL IVP PRN (22:55)
[2018-05-23] MEDS: APAP/HYDROCODONE 325/7.5 TAB PO PRN (23:26)
[2018-05-24] VITALS (29 sets, daily range): BP systolic 86–118; BP diastolic 54–76; Ht 175.3 cm; Wt 88.2 kg
[2018-05-24] MEDS: APAP/HYDROCODONE 325/7.5 TAB PO PRN ×2 (05:14→09:07)
--- NOTE | 2018-05-24 07:32 | General Surgery Progress Note ---
Subjective Progress Notes Subjective doing well. able to breath much better when tube capped. Physical Exam Vital Signs Date Time Temp Pulse Resp B/P (MAP) Pulse Ox O2 Delivery O2 Flow Rate FiO2 05/24/18 06:15 69 100/60 (73) Cool Aerosol 6.0 28.0 05/24/18 05:45 11 92 05/24/18 03:00 98.1 Intake and Output 05/24/18 07:00 Intake Total 3725 ml Output Total 0 ml Balance 3725 ml Intake Oral 650 ml IV Total 2775 ml Other 300 ml Output Emesis 0 ml Estimated Blood Loss 0 ml # Voids 0 # Bowel Movements 0 Respiratory: No Respiratory Distress, Other (trach in place. on blow by.) Result Diagram: 05/23/18 1358 Assessment and Plan Problems: (1) Respiratory distress Status: Acute Assessment & Plan: 05/24/18: s/p bronchoscopy and trach exchange. breathing much better even when trach capped. home today. Exam Sepsis Risk: No Definite Risk MARIA EUGENIA PRECIADO May 24, 2018 07:32
[2018-05-24] MEDS ORDERED: LIDOCAINE 2% JELLY 5 ML TUBE TP PRN (07:45)
[2018-05-24] MEDS ORDERED: INSULIN HUM LISPRO 100 UN/ML 3 ML VIAL SUBQ PRN (07:45)
[2018-05-24] MEDS ORDERED: ONDANSETRON 4 MG ODT TABDP SL PRN (07:45)
--- NOTE | 2018-05-24 08:03 | OPERATIVE REPORT 1 ---
EVENT DATE: May 23, 2018 SURGEON: Maxwell Mendez MD ANESTHESIOLOGIST: Juan Ayers MD ANESTHESIA: General. PREOPERATIVE DIAGNOSIS Shortness of breath when trach capped. POSTOPERATIVE DIAGNOSIS Shortness of breath when trach capped. PROCEDURES PERFORMED 1. Bronchoscopy. 2. Exchange of tracheostomy tube. ESTIMATED BLOOD LOSS Minimal. COMPLICATIONS None. INDICATIONS This is a 47-year old male with a recent tracheostomy tube placement. He has shortness of breath when the tracheostomy tube is capped. Risks and benefits of the procedure were explained and consent was signed. DESCRIPTION OF PROCEDURE The patient was taken to the operating room and placed in the supine position with the head of the bed elevated. General anesthesia was administered per the anesthesia team. Anesthesia was administered per the tracheostomy tube as was oxygen. Bite block was placed. The bronchoscope was advanced through the oropharynx through the vocal cords and into the trachea. I could see tissue covering a significant portion of the fenestration. This tissue was inflamed tissue. I then exchanged the tracheostomy tube for a size 8 Shiley. This tracheostomy tube has a larger fenestration. The tube was placed without difficulty. I advanced the bronchoscope through the tube and confirmed appropriate location of the tube. I advanced the bronchoscope down each of the main bronchi and looked into the lobar bronchi. There was no significant fluid or mucous in the bronchi. I then passed the bronchoscope through the oropharynx again and through the vocal cords. I was able to view the tracheostomy tube. The fenestration had a much larger opening that was not covered by tissue. Bronchoscope was removed after I suctioned secretions. The patient tolerated the procedure well and there were no complications. KIERAN
[2018-05-24] MEDS ORDERED: LIDOCAINE 2% 200MG/10ML UROJET TP PRN (08:35)
[2018-05-24] MEDS ORDERED: GEMFIBROZIL 600 MG TAB PO SCH (09:00)
[2018-05-24] MEDS ORDERED: CETIRIZINE HCL 10 MG TAB PO SCH (09:00)
[2018-05-24] MEDS ORDERED: PANTOPRAZOLE SOD 40 MG TABEC PO SCH (09:00)
[2018-05-24] MEDS ORDERED: FLUoxetine HCL 20 MG CAP PO SCH (09:00)
[2018-05-24] MEDS ORDERED: DOCUSATE SODIUM 100 MG CAP PO SCH (09:00)
[2018-05-24] MEDS ORDERED: HYDROCHLOROTHIAZIDE 25 MG TAB PO SCH (09:00)
[2018-05-24] MEDS ORDERED: PER PO (11:55)
[2018-05-24] MEDS ORDERED: HYDROGEN PEROXID 3% 473 ML BTL TP ONE (11:57)
--- NOTE | 2018-05-24 11:57 | Hospitalist Depart ---
Discharge Summary Reason for Hosp/Final Diag: (1) Respiratory distress Status: Acute Hospital Course & Plan: 05/24/18: s/p bronchoscopy and trach exchange. breathing much better even when trach capped. home today. Departure Weight (Pounds): 194 Weight (Ounces): 8.0 Result Diagram: 05/23/18 0413 Condition: Improved Discharge Instructions Home Meds Active Scripts Oxycodone/Acetaminophen (OXYCODONE/ACETAMINOPHEN 5MG/325 MG) 5 Mg/325 Mg Tab, 1 TAB PO Q4H for PAIN, #30 TAB Prov:MARIA EUGENIA PRECIADO 05/24/18 Oxycodone/Acetaminophen (OXYCODONE/ACETAMINOPHEN 5MG/325 MG) 5 Mg/325 Mg Tab, 1- 2 TAB PO Q4H PRN for MODERATE PAIN, #30 TAB 0 Refills Prov:BEBETO CASITLLO MD 04/30/18 Docusate Sodium (DOCUSATE SODIUM) 100 Mg Capsule, 1 CAP PO BID, #30 CAPSULE 0 Refills Prov:BEBETO CASTILLO MD 04/30/18 Albuterol Sulfate 90 Mcg/Act (PROAIR HFA 90 MCG/ACT) 8.5 Gm Hfa.aer.ad, 2 PUFF IH Q6H, #2 INHALER 3 Refills Prov:BEBETO CASTILLO MD 04/02/18 Ondansetron 4 Mg Odt (ONDANSETRON 4 MG ODT) 4 Mg Tab.rapdis, 4 MG PO Q6H PRN for NAUSEA, #20 TAB 2 Refills Prov:LASHAUN ERNST MD 12/20/16 Reported Medications [lidocaine 2% gel] No Conflict Check, 1 THOMAS TOP Q4H PRN for PAIN, #1 TUBE 1 Refill 05/18/18 Nortriptyline Hcl (NORTRIPTYLINE HCL) 10 Mg Cap, 10 MG PO HS, CAP 03/08/18 Insulin Aspart (NOVOLOG) 100 Unit/1 Ml Cartridge, 1-5 UNIT SQ ACHS Sliding scale 08/09/17 Multivitamin (MEN'S MULTI-VITAMIN) 1 Each Tablet, 1 EACH PO DAILY 12/17/16 Ezetimibe (ZETIA) 10 Mg Tablet, 10 MG PO QHS, TAB 12/17/16 Pantoprazole Sodium (PANTOPRAZOLE SODIUM) 40 Mg Tablet.dr, 40 MG PO BID, TAB.SR 06/08/16 Fluoxetine Hcl (PROZAC) 20 Mg Capsule, 20 MG PO QHS, CAPSULE 06/08/16 Ascorbic Acid (VITAMIN C) 1,000 Mg Tablet, 1000 MG PO BID 06/06/16 Cetirizine Hcl (ZYRTEC) 10 Mg Tablet, 10 MG PO BID, TAB 06/06/16 Insulin Degludec (Tresiba Flextouch U-100) Unknown Strength Insuln.pen, 38 UNITS SUBQ QHS 05/23/16 Gemfibrozil (GEMFIBROZIL) 600 Mg Tablet, 600 MG PO BID 05/23/16 Hydrochlorothiazide (HYDROCHLOROTHIAZIDE) 25 Mg Tablet, 1 TAB PO QDAY, TAB 05/23/16 Diet: Regular Activity: As Tolerated Special Instructions: clean only inner cannula. do not remove trach until seen by dr. castillo. f/u dr. castillo 06/01/18. Venous Thromboembolism Antithrombotics Is Pt On Any Antithrombotics?: No MARIA EUGENIA PRECIADO May 24, 2018 11:57
[2018-05-24] MEDS ORDERED: PHENOL SPRAY 120 ML BTL MT PRN (12:00)
[2018-05-24] MEDS ORDERED: ALBUTEROL 8 GM INHALER INH SCH (12:00)
[2018-05-24] MEDS ORDERED: NORTRIPTYLINE HCL 10 MG CAP PO SCH (21:00)
[2018-05-24] MEDS ORDERED: EZETIMIBE 10 MG TAB PO SCH (21:00)
== END 2018-05-24 13:28 | disposition home or self-care (01) | DRG 206 ==
LOC: ER 12:53 → OR 14:52 → ICU 22:30
PROVIDERS: ADMIT Surgery; ATTEND Surgery
PROC: 0B21XFZ Change Tracheostomy Device in Trachea, External Approach (ICD-10-PCS; principal; 2018-05-24)
DX: J95.03 Malfunction of tracheostomy stoma (principal); R06.03 Acute respiratory distress; E11.9 Type 2 diabetes mellitus without complications; K21.9 Gastro-esophageal reflux disease without esophagitis; G47.33 Obstructive sleep apnea (adult) (pediatric); E78.5 Hyperlipidemia, unspecified; I10 Essential (primary) hypertension; J45.909 Unspecified asthma, uncomplicated; R01.1 Cardiac murmur, unspecified; Z90.49 Acquired absence of other specified parts of digestive tract; Z88.6 Allergy status to analgesic agent; Z88.5 Allergy status to narcotic agent; Z88.8 Allergy status to other drugs, medicaments and biological substances; Z88.1 Allergy status to other antibiotic agents; Z88.0 Allergy status to penicillin; Z98.1 Arthrodesis status; Z79.4 Long term (current) use of insulin
CPT/HCPCS: 36416; 71046; 82948; 85025; 94640; 99284; J0131; J2001; J2405; J2704; J3010; J3535; J7030; J7512

== ENCOUNTER → 2018-06-19 | Outpatient (CLI) | payer OTHER, BC ==
[2018-05-24 09:11] VITALS: BMI 28.6
[~2018-06-19] MED LIST changes: +ALBU2.5V36 NEB; +LIDO15SO2 TP; +RANI-366 PO
== END ==
LOC: LAB 10:12
PROVIDERS: ATTEND Internal Medicine Clinical & Laboratory Immunology
DX: T78.3XXD Angioneurotic edema, subsequent encounter (principal); T88 Other complications of surgical and medical care, not elsewhere classified; T46.4X5D Adverse effect of angiotensin-converting-enzyme inhibitors, subsequent encounter
CPT/HCPCS: 36415; 83520

== ENCOUNTER 2018-06-20 01:54 | Day surgery (SDC) | payer OTHER, BC ==
[2018-05-24 09:11] VITALS: Ht 175.3 cm; Wt 88.0 kg
[~2018-06-20] VITALS: Ht 175.3 cm; Wt 88.0 kg
[~2018-06-20 01:54] MED LIST changes: -ALBU2.5V36 NEB
[2018-06-20] MEDS ORDERED: ETOMIDATE 20 MG/10 ML VIAL ONE (11:32)
[2018-06-20] MEDS ORDERED: fentaNYL CITR 100 MCG/2 ML AMP ONE ×2 (11:34→13:30)
[2018-06-20] MEDS ORDERED: PROPOFOL EMUL(*) 10MG/ML 20 ML 20 ML ONE (11:35)
[2018-06-20] MEDS ORDERED: LIDOCAINE MPF 1% 5 ML VIAL ONE (11:35)
[2018-06-20] MEDS ORDERED: MINERAL OIL LIGHT 10 ML VIAL ONE (11:38)
[2018-06-20] MEDS ORDERED: LIDOCAINE/SOD BICARB 8.4% SYR ID ONE (11:45)
[2018-06-20] MEDS ORDERED: NORMOSOL R SOLN(*) 1000 ML BAG 1,000 ML IV PRN (11:45)
[2018-06-20] MEDS ORDERED: MIDAZOLAM 2 MG/2 ML VIAL IVP PRN (11:45)
[2018-06-20] MEDS ORDERED: ALBU2.5V36 NEB (11:53)
[2018-06-20 11:57] VITALS: BP 131/99
--- NOTE | 2018-06-20 13:29 | Short(Outpt) Discharge Summary ---
Discharge Summary Reason for Hosp/Final Diag: (1) Tracheostomy malfunction Status: Chronic Hospital Course & Plan: Bronchoscopy with debridement of tracheal granulation tissue Departure Discharge to: Home, Self Care Discharge Instructions Home Meds Active Scripts Albuterol Sulfate 0.083% (ALBUTEROL SULFATE 0.083%) 2.5 Mg/3 Ml Vial.neb, 3 ML NEB BID, #60 VIAL 6 Refills Prov:BEBETO CASTILLO MD 06/20/18 Lidocaine HCl VISCOUS 2% (Lidocaine Viscous) 2 % Solution, 1 THOMAS TP DAILY PRN for PAIN, #1 BOTTLE 6 Refills Prov:BEBETO CASTILLO MD 05/29/18 Albuterol Sulfate 90 Mcg/Act (PROAIR HFA 90 MCG/ACT) 8.5 Gm Hfa.aer.ad, 2 PUFF IH Q6H, #2 INHALER 3 Refills Prov:BEBETO CASTILLO MD 04/02/18 Ondansetron 4 Mg Odt (ONDANSETRON 4 MG ODT) 4 Mg Tab.rapdis, 4 MG PO Q6H PRN for NAUSEA, #20 TAB 2 Refills Prov:LASHAUN ERNST MD 12/20/16 Reported Medications Ranitidine Hcl (ZANTAC) 150 Mg Tablet, 300 MG PO BID, TAB 06/19/18 Nortriptyline Hcl (NORTRIPTYLINE HCL) 10 Mg Cap, 10 MG PO HS, CAP 03/08/18 Insulin Aspart (NOVOLOG) 100 Unit/1 Ml Cartridge, 1-5 UNIT SQ ACHS Sliding scale 08/09/17 Multivitamin (MEN'S MULTI-VITAMIN) 1 Each Tablet, 1 EACH PO DAILY 12/17/16 Ezetimibe (ZETIA) 10 Mg Tablet, 10 MG PO QHS, TAB 12/17/16 Pantoprazole Sodium (PANTOPRAZOLE SODIUM) 40 Mg Tablet.dr, 40 MG PO BID, TAB.SR 06/08/16 Fluoxetine Hcl (PROZAC) 20 Mg Capsule, 20 MG PO QHS, CAPSULE 06/08/16 Ascorbic Acid (VITAMIN C) 1,000 Mg Tablet, 1000 MG PO BID 06/06/16 Cetirizine Hcl (ZYRTEC) 10 Mg Tablet, 10 MG PO BID, TAB 06/06/16 Insulin Degludec (Tresiba Flextouch U-100) Unknown Strength Insuln.pen, 38 UNITS SUBQ QHS 05/23/16 Gemfibrozil (GEMFIBROZIL) 600 Mg Tablet, 600 MG PO BID 05/23/16 Hydrochlorothiazide (HYDROCHLOROTHIAZIDE) 25 Mg Tablet, 1 TAB PO QDAY, TAB 05/23/16 Discontinued Scripts Oxycodone/Acetaminophen (OXYCODONE/ACETAMINOPHEN 5MG/325 MG) 5 Mg/325 Mg Tab, 1 TAB PO Q4H for PAIN, #30 TAB Prov:MARIA EUGENIA PRECIADO 05/24/18 Oxycodone/Acetaminophen (OXYCODONE/ACETAMINOPHEN 5MG/325 MG) 5 Mg/325 Mg Tab, 1- 2 TAB PO Q4H PRN for MODERATE PAIN, #30 TAB 0 Refills Prov:BEBETO CASTILLO MD 04/30/18 Docusate Sodium (DOCUSATE SODIUM) 100 Mg Capsule, 1 CAP PO BID, #30 CAPSULE 0 Refills Prov:BEBETO CASTILLO MD 04/30/18 Diet: Regular Activity: As Tolerated Special Instructions: Keep the main tracheostomy tube in place and change it only weekly. Remove the inner canula daily and clean this daily. Use the Pasy [place] valve. Hopefully this will decrease the secretions that build up in the trach. Use the albuterol nebulizer twice each day and use humidified oxygen while sleeping. My office will call you in the next day or two to schedule a follow up appointment to see me in the office. BEBETO CASTILLO MD Jun 20, 2018 13:29
[2018-06-20] MEDS ORDERED: ACETAMINOPHEN(*)1000 MG/100 ML 100 ML IVPB ONE (14:05)
--- NOTE | 2018-06-20 14:05 | OPERATIVE REPORT 1 ---
EVENT DATE: June 20, 2018 SURGEON: Johnnie Ferreira MD ANESTHESIOLOGIST: Freddy Lopes MD ANESTHESIA: General anesthesia via tracheostomy tube. PREOPERATIVE DIAGNOSIS Tracheostomy dysfunction. POSTOPERATIVE DIAGNOSIS Tracheostomy dysfunction. PROCEDURE PERFORMED Bronchoscopy with debridement of tracheal granulation tissue. COMPLICATIONS None. CONDITION Stable. ESTIMATED BLOOD LOSS Minimal. FINDINGS Patient had granulation tissue that had been building up on the superior anterior side of the tracheostomy tube next to the actual tracheotomy hole. This was causing obstruction of the fenestration and affecting his ability to breathe and talk through the fenestration. DESCRIPTION OF PROCEDURE Patient was brought to the operating room and placed supine on the operating table. Dr. Lopes provided general anesthesia and after this was completed I, was jaw thrust, was able to get the bronchoscope through the vocal cords, which were symmetric and unremarkable, into the upper trachea and there was quite a bit of mucus, blood there and granulation tissue and I could not really see the tracheostomy tube that well. I irrigated and sucked out the irrigation from this area and then ultimately was able to use cold biopsy forceps and debrided the heaped up granulation tissue until I could clearly see all the tracheostomy tube that was inside the trachea. After this was completed, I irrigated and dried this area and made sure there was no ongoing excessive bleeding and we removed the tracheostomy tube and I advanced the bronchoscope down past the tracheotomy into the lower trachea down to the carole. There was some mucus in a ring configuration of the trachea, I suspect where the end of the tracheostomy tube normally resides. I cleaned this out and there was no evidence of necrosis or other ulcers in the trachea from the tube. After this was completed, I put the fenestrated non-cuffed #[address] in place and the fenestration was clear of debris and granulation tissue so I withdrew the bronchoscope and we allowed him to wake up and he seemed to be breathing very comfortably when he was still asleep but breathing on his own and moving air without any obvious resistance. We then brought him to the recovery room in good condition. KIERAN
[2018-06-20] MEDS ORDERED: ONDANSETRON 4 MG/2 ML VIAL ONE (14:56)
[2018-06-20 15:00] VITALS: BP 121/85
[2018-06-20 15:11] VITALS: BP 97/82
[2018-06-20 15:13] VITALS: BP 117/92
[2018-06-20 15:15] VITALS: BP 107/71
[2018-06-20 15:19] VITALS: BP 104/83
[2018-06-20] MEDS ORDERED: OXYC-854 PO (15:19)
== END 2018-06-20 15:00 | disposition home or self-care (01) ==
LOC: OR 01:54
PROVIDERS: ATTEND Surgery
DX: J95.09 Other tracheostomy complication (principal)
CPT/HCPCS: 31899; 36416; 82948; J0131; J2001; J2704; J3010; J3490

== ENCOUNTER 2018-07-20 00:50 | Day surgery (SDC) | payer OTHER, BC ==
[2018-05-24 09:11] VITALS: Ht 175.3 cm; Wt 87.1 kg
[~2018-07-20] VITALS: Ht 175.3 cm; Wt 87.1 kg
[2018-07-20] VITALS (7 sets, daily range): BP systolic 102–138; BP diastolic 68–104
[~2018-07-20 00:50] MED LIST changes: +ALBU2.5V36 NEB; +BUDE0.5A6 IH
[2018-07-20] MEDS ORDERED: NORMOSOL R SOLN(*) 1000 ML BAG 1,000 ML IV PRN (11:00)
[2018-07-20] MEDS ORDERED: LIDOCAINE/SOD BICARB 8.4% SYR ID ONE (11:00)
[2018-07-20] MEDS ORDERED: ACETAMINOPHEN(*)1000 MG/100 ML 100 ML IVPB ONE (11:15)
[2018-07-20] MEDS ORDERED: LIDO/EPI 1% MDV 1:100,000 20ML INFIL ONE (12:21)
[2018-07-20] MEDS ORDERED: PROPOFOL EMUL(*) 10MG/ML 20 ML 20 ML ONE (12:29)
[2018-07-20] MEDS ORDERED: TRIAMCINOLONE ACE(*) 40 MG/ML 1 ML ONE (12:46)
[2018-07-20] MEDS ORDERED: MIDAZOLAM 2 MG/2 ML VIAL ONE (12:58)
--- NOTE | 2018-07-20 13:31 | Short(Outpt) Discharge Summary ---
Discharge Summary Reason for Hosp/Final Diag: (1) Tracheostomy malfunction Status: Chronic Hospital Course & Plan: Bronchoscopy with excision of tracheal granulation tissue and tracheostomy tube exchange were completed without problems. Departure Discharge to: Home, Self Care Discharge Instructions Home Meds Active Scripts Budesonide (BUDESONIDE) 0.5 Mg/2 Ml Ampul.neb, 0.5 MG IH BID, #60 EACH 3 Refills Prov:BEBETO CASTILLO MD 07/03/18 Oxycodone Hcl/Acet 5/325 Mg (ENDOCET 5-325 TABLET) 1 Each Tablet, 1-2 TAB PO Q4H, #20 TAB 0 Refills Prov:BEBETO CASTILLO MD 06/20/18 Albuterol Sulfate 0.083% (ALBUTEROL SULFATE 0.083%) 2.5 Mg/3 Ml Vial.neb, 3 ML NEB BID, #60 VIAL 6 Refills Prov:BEBETO CASTILLO MD 06/20/18 Lidocaine HCl VISCOUS 2% (Lidocaine Viscous) 2 % Solution, 1 THOMAS TP DAILY PRN for PAIN, #1 BOTTLE 6 Refills Prov:BEBETO CASTILLO MD 05/29/18 Albuterol Sulfate 90 Mcg/Act (PROAIR HFA 90 MCG/ACT) 8.5 Gm Hfa.aer.ad, 2 PUFF IH Q6H, #2 INHALER 3 Refills Prov:BEBETO CASTILLO MD 04/02/18 Ondansetron 4 Mg Odt (ONDANSETRON 4 MG ODT) 4 Mg Tab.rapdis, 4 MG PO Q6H PRN for NAUSEA, #20 TAB 2 Refills Prov:LASHAUN ERNST MD 12/20/16 Reported Medications Ranitidine Hcl (ZANTAC) 150 Mg Tablet, 300 MG PO BID, TAB 06/19/18 Nortriptyline Hcl (NORTRIPTYLINE HCL) 10 Mg Cap, 10 MG PO HS, CAP 03/08/18 Insulin Aspart (NOVOLOG) 100 Unit/1 Ml Cartridge, 1-5 UNIT SQ ACHS Sliding scale 08/09/17 Multivitamin (MEN'S MULTI-VITAMIN) 1 Each Tablet, 1 EACH PO DAILY 12/17/16 Ezetimibe (ZETIA) 10 Mg Tablet, 10 MG PO QHS, TAB 12/17/16 Pantoprazole Sodium (PANTOPRAZOLE SODIUM) 40 Mg Tablet.dr 40 MG PO BID, TAB.SR 06/08/16 Fluoxetine Hcl (PROZAC) 20 Mg Capsule, 20 MG PO QHS, CAPSULE 06/08/16 Ascorbic Acid (VITAMIN C) 1,000 Mg Tablet, 1000 MG PO BID 06/06/16 Cetirizine Hcl (ZYRTEC) 10 Mg Tablet, 10 MG PO BID, TAB 06/06/16 Insulin Degludec (Tresiba Flextouch U-100) Unknown Strength Insuln.pen, 38 UNITS SUBQ QHS 05/23/16 Gemfibrozil (GEMFIBROZIL) 600 Mg Tablet, 600 MG PO BID 05/23/16 Hydrochlorothiazide (HYDROCHLOROTHIAZIDE) 25 Mg Tablet, 1 TAB PO QDAY, TAB 05/23/16 Follow up Referrals: General Surgery - 08/01/18 @ Surgery, General with BEBETO CASTILLO MD You have a follow up appointment scheduled with Dr. Castillo on 08/01/18, at 3:30pm. Diet: Regular Activity: As Tolerated BEBETO CASTILLO MD Jul 20, 2018 13:31
--- NOTE | 2018-07-20 13:39 | Post Operative Progress Note ---
Post Operative Progress Note Date: Jul 20, 2018 Time: 13:32 Surgeon: Hanna Dictation number: [id number] Anesthesia: LMA by Dr. España Pre-Op Diagnosis: Tracheostomy malfunction Hoarseness Post-Op Diagnosis: LISS Findings: Treacheal inflammation with granulation tissue adjacent to trach tube Procedure(s): Bronchoscopy with excision of granulation tissue from trachea and from around skin opening Specimen Removed:(May be N/A): None Complications: None Fluids: See anesthesia record Estimated Blood Loss: Minimal Date OP Note Dictated: Jul 20, 2018 Time OP Note Dictated: 13:33 BEBETO CASTILLO MD Jul 20, 2018 13:39
--- NOTE | 2018-07-20 14:05 | NUR ---
1405- PT BROUGHT TO STEP DOWN BAY 7, PT IN SF POSITION, PT A/O X 3, HE IS COOPERATIVE AND POLITE WITH CARES AND STAFF, VSS, PT HAS TRACHEOSTOMY WITH PLUG IN PLACE, PT MAINTAINING SATS, RESP, AIRWAY ON 1LPM VIA NC, WILL CONTINUE TO MONITOR, SBAR REPORT FROM Nia PAUL RN 1415- VSS, PT HAS GLASSES ON AND REPORTS FEELING WELL
--- NOTE | 2018-07-20 14:20 | NUR ---
1420- FAMILY AT BEDSIDE
--- NOTE | 2018-07-20 14:34 | NUR ---
1434- PT PLACED ON RA
--- NOTE | 2018-07-20 14:43 | NUR ---
1443- SATS DROPPED TO 87% ON RA, PT DEEP BREATHING AND SATS IFTIKHAR BACK UP TO 93% ON RA WITHIN 5 SECONDS, WILL CONTINUE TO MONITOR
--- NOTE | 2018-07-20 14:55 | NUR ---
1455- REVIEWED D/C INSTRUCTIONS WITH PT AND , PT 89% ON RA, PT HAS PULSE OX AT HOME, ADVISED PT TO WEAR HIS HOME O2 WHILE AT HOME TODAY AND WHILE RESTING AND SLEEPING, SATS WILL FLOAT FROM 86% BUT RAISE BACK TO NORMAL LIMITS WITH DEEP BREATHING, PT VERBALIZES UNDERSTANDING
--- NOTE | 2018-07-20 14:58 | NUR ---
1458- SL IV 1500- ORTHOSTATIC VSS, PT RA SATS REMAINED ABOVE 90, POSITION OF PT IMPROVED SATS, PT'S COLOR IS GOOD AND REPORTS NO SOB, LUNGS ARE CTA 1503- PT DRESSED 1511- D/C IV WITH CATH INTACT, PRESSURE DRESSING APPLIED WITH GAUZE AND TAPE, PT DENIES NEEDING TO USE THE RESTROOM, PT ADVISED TO URINATE WITHIN 12 HOURS OF SURGERY AND IF NOT TO RETURN TO THE ER, PT VERBALIZED UNDERSTANDING 1515- PT AMBULATORY TO [facility] FOR [facility], ACCOMPANIED BY , DAUGHTERS AND LEV CAIN
--- NOTE | 2018-07-20 16:45 | OPERATIVE REPORT 1 ---
EVENT DATE: July 20, 2018 SURGEON: Johnnie Ferreira MD ANESTHESIOLOGIST: Micah España MD ANESTHESIA: LMA. PREOPERATIVE DIAGNOSES 1. Tracheostomy malfunction. 2. Hoarseness. POSTOPERATIVE DIAGNOSES 1. Tracheostomy malfunction. 2. Hoarseness. PROCEDURES PERFORMED 1. Bronchoscopy with excision of tracheal granulation tissue. 2. Debridement of granulation tissue from around tracheotomy external opening. COMPLICATIONS None. CONDITION Stable. BLOOD LOSS Minimal. INDICATIONS This is a 47-year-old gentleman who has a previous history of idiopathic recurrent anaphylaxis and ultimately has required a tracheostomy tube to secure his airway in the cases of these times of anaphylaxis. The tracheostomy is clamped, and he has been breathing through his yocha dehe airway, but he is under the care of an hospice clinical manager, Dr. Yasir zazueta at [facility] in [place], and has recently initiated care with an ear, nose, and throat specialist, Dr. Chuck zazueta at [facility]. They are working on getting him to the point where we can get the tracheostomy tube in. In the meantime, he has recurring episodes of increased stridor and difficulties breathing, as well as hoarseness, and he has requested that I look in his airway as we have had to remove granulation tissue from his trachea in the past. DESCRIPTION OF PROCEDURE The patient was brought to the endoscopy room and remained supine on his gurney. LMA anesthesia was administered, and I inserted the bronchoscope through the LMA into his larynx without any problems. The larynx looked symmetric, and while mildly inflamed, I did not see any obvious other abnormalities. I advanced the scope through the larynx and into his upper trachea and saw diffuse edema in the upper trachea and some granulation tissue that was heaping up around the opening to the tracheostomy hole. I removed this with the endoscopic forceps. I also noted that the trachea was wide open, and there was plenty of lumen that he could move air around the incised for tracheostomy non-fenestrated and non-cuffed tube. I then removed the tracheostomy tube and inspected the trachea, and it all really looked pretty good. I then had the anesthesiologist turn the oxygen way down, and then I debrided granulation tissue from the tracheotomy tract including the surrounding skin with a scalpel and then cauterized this to debride the granulation tissue and stop any bleeding. I then reinserted a new, clean, #4, non-fenestrated, non-cuffed tracheostomy tube and secured it the next strap. I then placed the capped inner cannula through this tube. He was then awakened and LMA removed. He was transported to the recovery room in stable condition having tolerated the procedure without any apparent problems. KIERAN
== END 2018-07-20 14:05 | disposition home or self-care (01) ==
LOC: OR 00:50
PROVIDERS: ATTEND Surgery
DX: J95.03 Malfunction of tracheostomy stoma (principal); R49.0 Dysphonia; E11.9 Type 2 diabetes mellitus without complications
CPT/HCPCS: 31640; 36416; 82948; J0131; J2250; J2704; J3301

== ENCOUNTER → 2018-10-09 | Outpatient (CLI) | payer OTHER, BC ==
[2018-05-24 09:11] VITALS: BMI 28.6
[~2018-10-09] MED LIST changes: +AZIT-17 PO; -RANI-366 PO; +RANI-54 PO; +TRI40I INTRA-ART; +[UNRECOGNIZED DRUG - CODE] IM
[2018-10-09 19:54] LABS: PLATELET COUNT, AUTOMATED 352 K/uL (150-450)
== END ==
LOC: LAB 19:36
PROVIDERS: ATTEND Surgery
DX: Z01.818 Encounter for other preprocedural examination (principal)
CPT/HCPCS: 36415; 82310; 82374; 82435; 82565; 82947; 83036; 84132; 84295; 84520; 85025

== ENCOUNTER → 2018-10-18 | Day surgery (SDC) | payer OTHER, BC ==
[2018-05-24 09:11] VITALS: Ht 172.7 cm; Wt 90.3 kg
[2018-10-17 14:22] VITALS: BP 113/90
[2018-10-17 14:24] VITALS: BP 103/72
[~2018-10-18] VITALS: Ht 172.7 cm; Wt 90.3 kg
[~2018-10-18] MED LIST changes: +LIDOCAINE MPF 1% 5 ML VIAL ONE; +LIDOCAINE/SOD BICARB 8.4% SYR ID ONE; +NORMOSOL R SOLN(*) 1000 ML BAG 1,000 ML IV PRN; +PROPOFOL EMUL(*) 10MG/ML 20 ML 60 ML ONE; +ROPIVACAINE 0.5% 20 ML VIAL ONE; +fentaNYL CITR 100 MCG/2 ML AMP ONE; +oxyCODON/ACET (*)5/325MG (CII) 1 TAB TAB PO ONE
[2018-10-18 11:10] VITALS: BP 130/94
--- NOTE | 2018-10-18 12:44 | Short(Outpt) Discharge Summary ---
Discharge Summary Reason for Hosp/Final Diag: (1) Tracheostomy malfunction Status: Chronic Hospital Course & Plan: Tracheostomy trach and bronchoscopy completed without problems. Trach tube changed. (2) Mass of subcutaneous tissue Status: Chronic Hospital Course & Plan: Left lateral thigh lipoma excision completed without problems. Departure Discharge to: Home, Self Care Discharge Instructions Home Meds Active Scripts Oxycodone Hcl/Acet 5/325 Mg (ENDOCET 5-325 TABLET) 1 Each Tablet, 1-2 TAB PO Q4H, #20 TAB 0 Refills Prov:BEBETO CASTILLO MD 10/18/18 Azithromycin (Z-PACK) 250 Mg Tablet, 1 TAB PO QDAY, #6 DOSE-PACK 0 Refills Take 2 tablets on day one and 1 tablet on days 2-5. Follow package instructions. Prov:BEBETO CASTILLO MD 09/14/18 Lidocaine HCl VISCOUS 2% (Lidocaine Viscous) 2 % Solution, 1 THOMAS TP DAILY PRN for PAIN, #2 BOTTLE 6 Refills Prov:BEBETO CASTILLO MD 08/14/18 Budesonide (BUDESONIDE) 0.5 Mg/2 Ml Ampul.neb, 0.5 MG IH BID, #60 EACH 3 Refills Prov:BEBETO CASTILLO MD 07/03/18 Albuterol Sulfate 0.083% (ALBUTEROL SULFATE 0.083%) 2.5 Mg/3 Ml Vial.neb, 3 ML NEB BID, #60 VIAL 6 Refills Prov:BEBETO CASTILLO MD 06/20/18 Albuterol Sulfate 90 Mcg/Act (PROAIR HFA 90 MCG/ACT) 8.5 Gm Hfa.aer.ad, 2 PUFF IH Q6H, #2 INHALER 3 Refills Prov:BEBETO CASTILLO MD 04/02/18 Ondansetron 4 Mg Odt (ONDANSETRON 4 MG ODT) 4 Mg Tab.rapdis, 4 MG PO Q6H PRN for NAUSEA, #20 TAB 2 Refills Prov:LASHAUN ERNST MD 12/20/16 Reported Medications Ranitidine Hcl (ZANTAC) 150 Mg Tablet, 300 MG PO BID, TAB 06/19/18 Nortriptyline Hcl (NORTRIPTYLINE HCL) 10 Mg Cap, 10 MG PO HS, CAP 03/08/18 Insulin Aspart (NOVOLOG) 100 Unit/1 Ml Cartridge, 1-5 UNIT SQ ACHS Sliding scale 08/09/17 Multivitamin (MEN'S MULTI-VITAMIN) 1 Each Tablet, 1 EACH PO DAILY 12/17/16 Ezetimibe (ZETIA) 10 Mg Tablet, 10 MG PO QHS, TAB 12/17/16 Pantoprazole Sodium (PANTOPRAZOLE SODIUM) 40 Mg Tablet.dr, 40 MG PO BID, TAB.SR 06/08/16 Fluoxetine Hcl (PROZAC) 20 Mg Capsule, 20 MG PO QHS, CAPSULE 06/08/16 Ascorbic Acid (VITAMIN C) 1,000 Mg Tablet, 1000 MG PO BID 06/06/16 Cetirizine Hcl (ZYRTEC) 10 Mg Tablet, 10 MG PO BID, TAB 06/06/16 Insulin Degludec (Tresiba Flextouch U-100) Unknown Strength Insuln.pen, 38 UNITS SUBQ QHS 05/23/16 Gemfibrozil (GEMFIBROZIL) 600 Mg Tablet, 600 MG PO BID 05/23/16 Hydrochlorothiazide (HYDROCHLOROTHIAZIDE) 25 Mg Tablet, 1 TAB PO QDAY, TAB 05/23/16 Follow up Referrals: General Surgery - 10/31/18 @ Surgery, General with BEBETO CASTILLO MD You have a follow up appointment scheduled with Dr. Castillo on 10/31/18, at 4:30pm. Diet: Regular Activity: As Tolerated Special Instructions: You may remove the white surgical dressing from your left thigh on 10/20/18, then you can shower. After showering, leave the incision open to air but leave the steristrips in place until they fall off on their own. Do not immerse the incision for 2 weeks. You can use both the 41 and 33 mm Cohen cannulas and determine which you prefer and which is more comfortable for you. If you perfer the 33mm cannula, call the office so we can order a second one for you. Push the cannula all the way in and then pull out until you meet resistance. BEBETO CASTILLO MD Oct 18, 2018 12:44
--- NOTE | 2018-10-18 12:51 | Post Operative Progress Note ---
Post Operative Progress Note Date: Oct 18, 2018 Time: 12:43 Surgeon: Hanna Dictation number: [id number] Anesthesia: TIVA by Dr. Lopes Pre-Op Diagnosis: 1) left thigh subcutaneous nodule 2) tracheostomy Post-Op Diagnosis: LISS Findings: Nodule c/w lipoma Tracheostomy site looks good Procedure(s): 1) Excision of left thigh subcutaneous nodule 2) Fiberoptic tracheostomy 3) Trachoestomy tube change Specimen Removed:(May be N/A): Left thigh nodule Complications: None Fluids: See anesthesia record Estimated Blood Loss: Minimal Date OP Note Dictated: Oct 18, 2018 Time OP Note Dictated: 12:44 BEBETO CASTILLO MD Oct 18, 2018 12:51
[2018-10-18 13:30] VITALS: BP 113/81
--- NOTE | 2018-10-19 08:04 | OPERATIVE REPORT 1 ---
EVENT DATE: October 18, 2018 SURGEON: Johnnie Ferreira MD ANESTHESIOLOGIST: Freddy Lopes MD ANESTHESIA: TIVA. PREOPERATIVE DIAGNOSES 1. Left thigh subcutaneous nodule. 2. Tracheostomy. POSTOPERATIVE DIAGNOSES 1. Left thigh subcutaneous nodule. 2. Tracheostomy. PROCEDURES PERFORMED 1. Excision of left thigh subcutaneous nodule. 2. Fiberoptic tracheostomy. 3. Tracheostomy tube exchange. COMPLICATIONS None. CONDITION Stable. ESTIMATED BLOOD LOSS Minimal. 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 He is not dependent on his tracheostomy on a regular basis but has it available in case he develops an anaphylaxis. He has been complaining of feelings of build up of granulation tissue at the tracheostomy site and feels like the flange on the end of the Cohen low-profile cannula is not sitting right in his trachea. He wanted me to inspect this and also mentions he has a nodule in his left lateral thigh that is causing him discomfort and he would like to have it removed at the same time. DESCRIPTION OF PROCEDURE The patient was brought to the operating room and TIVA anesthesia was administered and his left thigh was prepped and draped in sterile fashion. A time-out was completed and I injected the skin over the nodule with 0.5% bupivacaine plain. I then made a longitudinally oriented incision over the nodule and dissected through the dermis and subcutaneous fat, identified the nodule, dissected using a combination and electrocautery, dissecting around the nodule and it was right down on the muscle but peeled off easily from the muscle and then I removed it from the wound and passed it off the field. I irrigated and dried the wound and then closed the wound with interrupted 3-0 Vicryl deep dermal sutures and 4-0 Monocryl subcuticular sutures. Skin was cleaned and dried and Steri-Strips applied followed by a sterile surgical dressing. The drapes were then taken down and I moved up to the head of the bed and a bronchoscope was tested to ensure it was completely functional and then I inserted the bronchoscope through the patients mouth, through the cords and identified the feet or flange of the low-profile Cohen cannula and it was flush with the anterior wall of the trachea. There was a little granulation tissue, which I easily removed and then inspected the trachea after the tracheostomy tube was removed and then also inspected the tracheostomy tract. Everything really looked pretty good so I obtained the shorter tracheostomy tube, inserted it until the flange laid flush with the anterior wall of the trachea, cut it to appropriate length and then placed the cap on this. It laid nice and flush and everything looked great when this was done. I then completed this portion of the procedure and he was then brought to the recovery room in good condition. KIERAN
== END ==
LOC: OR 00:57
PROVIDERS: ATTEND Surgery
DX: D17.24 Benign lipomatous neoplasm of skin and subcutaneous tissue of left leg (principal); Z93.0 Tracheostomy status; E11.9 Type 2 diabetes mellitus without complications
CPT/HCPCS: 27327; 36416; 82948; 88305; J2001; J2704; J2795; J3010